=== PATIENT | male | born 1965 | race Caucasian/White ===

== ENCOUNTER 2017-02-26 00:24 | Inpatient (IN) | payer MEDICAID ==
[~2017-02-26] VITALS: Ht 190.5 cm; Wt 95.3 kg
[2017-02-26] VITALS (8 sets, daily range): BP systolic 119–153; BP diastolic 48–123
[2017-02-26] MEDS ORDERED: VENTOLIN HFA18 GM INH (00:39)
[2017-02-26] MEDS ORDERED: SPIRIVA18 MCG INH (00:39)
[2017-02-26] MEDS ORDERED: ATROVENT HFA12.9 GM IH (00:39)
[2017-02-26] MEDS ORDERED: ADVAIR 100-501 EACH INH (00:39)
[2017-02-26] MEDS ORDERED: Solu-MEDROL 125mg Inj IVP ONE (00:45)
[2017-02-26] MEDS ORDERED: Ipratropium 0.02% Inh Soln 2.5ml UD HHN ONE (00:45)
[2017-02-26] MEDS: Albuterol ud Inhalation HHN SCH ×2 (00:47→00:48)
--- NOTE | 2017-02-26 01:06 | Emergency Room Report ---
History of Present Illness General Chief Complaint: Dyspnea/Respdistress Source: Patient Present Illness HPI Patient with 2 days of dyspnea = chronic and worsening. States = severe now. No fevers or productive phlegm. This is worst attack. Never intubated. Not on prednisone. Anxious. No chest pain per se. Alleges has had heart failure unsure if this is related. Using rescue inhaler without help. No nebulizer at home. No NVD. No rashes. Stopped smoking 3 weeks ago. No dysuria. Implanted defib. Allergies: Coded Allergies: ASPIRIN (Verified Allergy, Unknown, 02/26/17) CORTISONE (Verified Allergy, Unknown, 02/26/17) Patient History Past Medical History: see triage record Social History: Reports: smoking - prior Social History Narrative with niece Reviewed Nursing Documentation: PMH: Agreed, PSxH: Agreed Nursing Documentation-PMH Past Medical History: No History, Except For Hx Cardiac Problems: Yes - Pacemaker, chf, Hx Asthma: Yes Hx COPD: Yes Review of Systems All Other Systems: negative except mentioned in HPI Physical Exam Vital Signs Date Time Temp Pulse Resp B/P Pulse Ox O2 Delivery O2 Flow Rate FiO2 02/26/17 00:30 97.3 102 24 151/79 93 Room Air 02/26/17 00:45 2.0 Sp02 EP Interpretation: reviewed, abnormal - low as interpreted by me General Appearance: alert, GCS 15, severe distress Head: normocephalic Eyes: bilateral eye PERRL, bilateral eye normal inspection ENT: moist mucus membranes Neck: supple Respiratory: respiratory distress, wheezing, expiration, inspiration, other - pacer Cardiovascular #1: no edema, tachycardia Cardiovascular #2: 2+ radial (R) Gastrointestinal: normal inspection, normal bowel sounds, non tender, no mass, non-distended, abnormal bowel sounds - decreased Musculoskeletal: back normal, gait/station normal, normal range of motion, no calf tenderness Neurologic: alert, oriented x3, grossly normal Psychiatric: anxious Skin: normal inspection, diaphoresis - slight Procedures Critical Care Time Critical Care Time Total Critical Care Time: 30 min bedside evaluation and treatment excludes procedures (EKG). Reason for critical care: respiratory distress with repeated evaluations Possible complications: hypotension, hypertension, ND, shock, arrhythmias, metabolic acidosis, end organ damage, respiratory failure. Interventions: multiple breathing treatments, magnesium, repeated evaluations ( consideration for BIPAP), treatment with morphine and ativan Course: Patient with extremis and wheezing. Aggressive breathing tx and steroids (evaluation of reported "allergy" to cortisone). Neice states " getting worse" with tx. As reported "CHF" eval CXR before fluids ordered (no evidence of CHF). Consideration of epi (held). Ativan and morphine. Improved , but still with wheezing - significant. Repeat tx and IV magnesium. Consultations: nursing staff, EMS, family, RT Performed by: Dr. Caballero Tolerated well condition = serious Medical Decision Making Diagnostic Impression: Primary Impression: Status asthmaticus with COPD (chronic obstructive pulmonary disease) Additional Impression: Renal insufficiency ER Course Patient with severe dyspnea and wheezes. Ddx: asthma, copd, chf, AMI, PNA amongst others. Immediate tx with albuterol. Consideration for intubation or BiPAP as severe distress. Also consider epi. Will observe closely (bedside). Can't hydrate until eval CXR. Solumedrol will be given. Patient states not feeling better - actually worse. Slight better air movement. Sat 100% Tx with morpine and ativan. CXR - no CHF or infiltrates. Improving with meds. BNP normal. Nl WBC. Some renal insufficiency. No indications for antibiotics. Improved - still with exp wheezing. Sats 97% 2:40. Admit telemetry Dr. Sanchez. Improved but still insp and exp wheezes at 4:20. Will repeat albuterol and give magnesium. Laboratory Tests Test 02/26/17 00:25 02/26/17 01:30 02/26/17 03:35 Prothrombin Time 9.8 SEC (9.30-11.50) Prothrombin Time INR 1.0 (0.9-1.1) PTT 25 SEC (23-33) Sodium Level 140 mEQ/L (135-145) Potassium Level 4.3 mEQ/L (3.4-4.9) Chloride Level 96 mEQ/L (98-107) L Carbon Dioxide Level 28 mEQ/L (20-30) Anion Gap 16 (5-15) H Blood Urea Nitrogen 18 mg/dL (7-23) Creatinine 1.3 mg/dL (0.7-1.2) H Estimate Glomerular Filtration Rate 57.7 mL/min (>60) Glucose Level 98 mg/dL (74-106) Lactic Acid Level 1.80 mmol/L (0.66-2.22) Calcium Level 10.0 mg/dL (8.6-10.2) Total Bilirubin 0.2 mg/dL (0.0-1.2) Aspartate Amino Transferase (AST) 24 U/L (5-40) Alanine Aminotransferase (ALT) 29 U/L (3-41) Alkaline Phosphatase 98 U/L (40-129) Total Creatine Kinase 94 U/L (38-174) Troponin I < 0.30 ng/mL (<=0.30) Pro-B-Type Natriuretic Peptide 21 pg/mL (0-125) Total Protein 8.1 g/dL (6.6-8.7) Albumin 4.7 g/dL (3.5-5.2) Globulin 3.4 g/dL Albumin/Globulin Ratio 1.3 (1.0-2.7) White Blood Count 8.1 K/UL (4.8-10.8) Red Blood Count 6.93 M/UL (4.70-6.10) H Hemoglobin 14.3 G/DL (14.2-18.0) Hematocrit 47.4 % (42.0-52.0) Mean Corpuscular Volume 68 FL (80-99) L Mean Corpuscular Hemoglobin 20.7 PG (27.0-31.0) L Mean Corpuscular Hemoglobin Concent 30.2 G/DL (32.0-36.0) L Red Cell Distribution Width 13.6 % (11.6-14.8) Platelet Count 228 K/UL (150-450) Mean Platelet Volume 8.4 FL (6.5-10.1) Neutrophils (%) (Auto) 38.6 % (45.0-75.0) L Lymphocytes (%) (Auto) 45.5 % (20.0-45.0) H Monocytes (%) (Auto) 6.5 % (1.0-10.0) Eosinophils (%) (Auto) 8.0 % (0.0-3.0) H Basophils (%) (Auto) 1.3 % (0.0-2.0) Urine Color Pale yellow Urine Appearance Clear Urine pH 5 (4.5-8.0) Urine Specific [place] 1.025 (1.005-1.035) Urine Protein 1+ (NEGATIVE) H Urine Glucose (UA) 2+ (NEGATIVE) H Urine Ketones Negative (NEGATIVE) Urine Occult Blood Negative (NEGATIVE) Urine Nitrite Negative (NEGATIVE) Urine Bilirubin Negative (NEGATIVE) Urine Urobilinogen Normal MG/DL (0.0-1.0) Urine Leukocyte Esterase 1+ (NEGATIVE) H Urine RBC 0-2 /HPF (0 - 0) H Urine WBC 0-2 /HPF (0 - 0) Urine Squamous Epithelial Cells Few /LPF (NONE/OCC) Urine Bacteria None /HPF (NONE) EKG Diagnostic Results Rate: tachycardiac ST Segments: no acute changes Rhythm Strip Diag. Results EP Interpretation: yes Rhythm: no PVC's, no ectopy, other - sinus tachycardia Chest X-Ray Diagnostic Results EP Interpretation: Yes Findings: no consolidation, no effusion, no pneumothorax, other - COPD, no infiltrate Number of Views: 1 Last Vital Signs Date Time Temp Pulse Resp B/P Pulse Ox O2 Delivery O2 Flow Rate FiO2 02/27/17 00:00 79 02/27/17 00:00 97.9 20 122/65 95 Nasal Cannula 2.0 97 Status: improved Disposition: ADMITTED INPATIENT Condition: Serious Gus Caballero M.D. February 26, 2017 01:06
[2017-02-26 01:08] LABS: PROTHROMBIN TIME 9.8 SEC (9.30-11.50); TROPONIN I < 0.30 ng/mL (<=0.30)
[2017-02-26 01:15] LABS: ALANINE AMINOTRANSFERASE 29 U/L (3-41); ALBUMIN/GLOBULIN RATIO 1.3 (1.0-2.7); ANION GAP 16 (5-15); ASPARTATE AMINO TRANSFERASE 24 U/L (5-40); CARBON DIOXIDE 28 mEQ/L (20-30); CHLORIDE 96 mEQ/L (98-107); CREATININE 1.3 mg/dL (0.7-1.2); GLOMERULAR FILTRATION RATE 57.7 mL/min (>60); HEMOLYSIS 56; POTASSIUM 4.3 mEQ/L (3.4-4.9); SODIUM 140 mEQ/L (135-145); TOTAL PROTEIN 8.1 g/dL (6.6-8.7)
[2017-02-26] MEDS ORDERED: Morphine Sulfate 2mg/ml Inj IVP ONE (01:15)
[2017-02-26] MEDS ORDERED: LORazepam Inj 2mg/ml 1ml IV ONE (01:15)
[2017-02-26 01:52] LABS: BASOPHILS % (AUTO) 1.3 % (0.0-2.0); LYMPHOCYTES % (AUTO) 45.5 % (20.0-45.0); MEAN CORPUSCULAR HEMOGLOBIN 20.7 PG (27.0-31.0); MEAN CORPUSCULAR HGB CONC 30.2 G/DL (32.0-36.0); MEAN CORPUSCULAR VOLUME 68 FL (80-99); MEAN PLATELET VOLUME 8.4 FL (6.5-10.1); MONOCYTES % (AUTO) 6.5 % (1.0-10.0); NEUTROPHILS % (AUTO) 38.6 % (45.0-75.0); PLATELET COUNT 228 K/UL (150-450); RED BLOOD COUNT 6.93 M/UL (4.70-6.10); RED CELL DISTRIBUTION WIDTH 13.6 % (11.6-14.8); WHITE BLOOD COUNT 8.1 K/UL (4.8-10.8)
[2017-02-26] MEDS ORDERED: NS 250 ML IVPB ONE (02:00)
[2017-02-26 03:40] LABS: APPEARANCE,URINE CLEAR; KETONES,URINE NEGATIVE (NEGATIVE); LEUKOCYTE ESTERASE ,URINE 1+ (NEGATIVE); NITRITE,URINE NEGATIVE (NEGATIVE); PH,URINE 5 (4.5-8.0); PROTEIN,URINE 1+ (NEGATIVE); UROBILINOGEN,URINE NORMAL MG/DL (0.0-1.0)
[2017-02-26 04:02] LABS: RBC,URINE 0-2 /HPF (0 - 0); SQUAMOUS EPITHELIAL CELL,UR FEW /LPF (NONE/OCC); WBC,URINE 0-2 /HPF (0 - 0)
[2017-02-26] MEDS ORDERED: Albuterol ud Inhalation HHN ONE (04:30)
[2017-02-26] MEDS ORDERED: Morphine Sulfate 2mg/ml Inj IVP PRN (07:30)
[2017-02-26] MEDS ORDERED: Promethazine/Codeine 5ml UD ORAL PRN (07:30)
[2017-02-26] MEDS ORDERED: Nitroglycerin Subl 0.4mg tab (Bottle Of 25) SL PRN (07:30)
[2017-02-26] MEDS ORDERED: LORazepam Inj 2mg/ml 1ml IV PRN (07:30)
[2017-02-26] MEDS: Theophylline ER 100mg ORAL SCH ×2 (08:52→20:30)
[2017-02-26] MEDS: Heparin 5000 units/ml inj SUBQ SCH ×2 (08:53→20:31)
[2017-02-26] MEDS: Zosyn 3.375gm q8h **Extended infusion IVPB SCH ×4 (08:53→16:20)
--- NOTE | 2017-02-26 09:36 | Diagnostic Imaging Report ---
Indication: Cough Comparison: None A single view chest radiograph was obtained. Findings: Cardiomediastinal appearance is within normal limits for age. Pacemakers noted. Pulmonary vascularity is appropriate. The diaphragmatic contour is smooth and costophrenic angles are sharp. No pleural effusions are identified. The bones are unremarkable. Impression: No acute findings
--- NOTE | 2017-02-26 12:57 | History and Physical ---
History of Present Illness General Date patient seen: February 26, 2017 Reason for Hospitalization: Dyspnea/Respdistress Present Illness HPI 51 year old male with hx of COPD, pace maker, LESLEYA from home c/o SOB x1week, patient states SOB worsened x3days. He states 7/10 medial chest pain. Patient also has inspiratory and expiratory wheezing. Pt is admitted to telemetry for acute respiratory failure. Allergies: Coded Allergies: ASPIRIN (Verified Allergy, Unknown, 02/26/17) CORTISONE (Verified Allergy, Unknown, 02/26/17) Medication History Scheduled Albuterol Sulfate (Ventolin Hfa), 1 PUFF INH EVERY 6 HOURS, (Reported) Fluticasone/Salmeterol (Advair 100-50 Diskus), 1 PUFF INH EVERY 12 HOURS, ( Reported) Tiotropium [place]* (Spiriva*), 1 PUFF INH DAILY, (Reported) Miscellaneous Medications Ipratropium [place] (Atrovent Hfa), 12.9 GM IH, (Reported) Patient History Healthcare decision maker pt A&Ox4 Resuscitation status Full Code Advanced Directive on File Past Medical/Surgical History Past Medical/Surgical History: (1) COPD (chronic obstructive pulmonary disease) (2) Pacemaker Review of Systems All Other Systems: negative except mentioned in HPI Physical Exam General Appearance: WD/WN Lines, tubes and drains: peripheral, central line HEENT: normocephalic, atraumatic Neck: non-tender, normal alignment Respiratory/Chest: chest wall non-tender, lungs clear Cardiovascular/Chest: normal peripheral pulses, normal rate Abdomen: normal bowel sounds Genitourinary/Rectal: normal genital exam, normal rectal exam Last 24 Hour Vital Signs Date Time Temp Pulse Resp B/P Pulse Ox O2 Delivery O2 Flow Rate FiO2 02/26/17 12:00 97.4 106 20 124/67 95 Room Air 02/26/17 11:37 99 Nasal Cannula 2.0 28 02/26/17 11:35 Nasal Cannula 2.0 28 02/26/17 11:32 118 20 Nasal Cannula 2.0 02/26/17 08:00 97.2 103 20 126/69 Nasal Cannula 2.0 99 02/26/17 07:56 90 02/26/17 05:09 97.5 111 22 121/82 96 Nasal Cannula 2.0 02/26/17 04:55 102 18 99 Nasal Cannula 2.0 02/26/17 04:55 89 19 125/60 97 Room Air 02/26/17 04:50 97.4 89 19 125/60 97 Nasal Cannula 2.0 02/26/17 04:31 90 18 97 Nasal Cannula 2.0 02/26/17 03:50 97.4 105 20 124/48 98 Nasal Cannula 2.0 02/26/17 01:50 97.4 02/26/17 01:26 98 18 99 Nasal Cannula 2.0 02/26/17 01:26 113 18 100 Nasal Cannula 2.0 02/26/17 01:05 97.3 105 24 153/123 100 Nasal Cannula 2.0 02/26/17 01:05 105 24 Nasal Cannula 2.0 02/26/17 00:46 103 18 97 Nasal Cannula 2.0 02/26/17 00:45 103 18 Nasal Cannula 2.0 02/26/17 00:30 97.3 102 24 151/79 93 Room Air Intake and Output 02/25/17 02/26/17 19:00 07:00 Intake Total 1000 ml Balance 1000 ml Intake Oral 0 ml IV Total 1000 ml Laboratory Tests Test 02/26/17 00:25 02/26/17 01:30 02/26/17 03:35 Prothrombin Time 9.8 SEC (9.30-11.50) Prothromb Time International Ratio 1.0 (0.9-1.1) Activated Partial Thromboplast Time 25 SEC (23-33) Sodium Level 140 mEQ/L (135-145) Potassium Level 4.3 mEQ/L (3.4-4.9) Chloride Level 96 mEQ/L (98-107) L Carbon Dioxide Level 28 mEQ/L (20-30) Anion Gap 16 (5-15) H Blood Urea Nitrogen 18 mg/dL (7-23) Creatinine 1.3 mg/dL (0.7-1.2) H Estimat Glomerular Filtration Rate 57.7 mL/min (>60) Glucose Level 98 mg/dL (74-106) Lactic Acid Level 1.80 mmol/L (0.66-2.22) Calcium Level 10.0 mg/dL (8.6-10.2) Total Bilirubin 0.2 mg/dL (0.0-1.2) Aspartate Amino Transf (AST/SGOT) 24 U/L (5-40) Alanine Aminotransferase (ALT/SGPT) 29 U/L (3-41) Alkaline Phosphatase 98 U/L (40-129) Total Creatine Kinase 94 U/L (38-174) Troponin I < 0.30 ng/mL (<=0.30) Pro-B-Type Natriuretic Peptide 21 pg/mL (0-125) Total Protein 8.1 g/dL (6.6-8.7) Albumin 4.7 g/dL (3.5-5.2) Globulin 3.4 g/dL Albumin/Globulin Ratio 1.3 (1.0-2.7) White Blood Count 8.1 K/UL (4.8-10.8) Red Blood Count 6.93 M/UL (4.70-6.10) H Hemoglobin 14.3 G/DL (14.2-18.0) Hematocrit 47.4 % (42.0-52.0) Mean Corpuscular Volume 68 FL (80-99) L Mean Corpuscular Hemoglobin 20.7 PG (27.0-31.0) L Mean Corpuscular Hemoglobin Concent 30.2 G/DL (32.0-36.0) L Red Cell Distribution Width 13.6 % (11.6-14.8) Platelet Count 228 K/UL (150-450) Mean Platelet Volume 8.4 FL (6.5-10.1) Neutrophils (%) (Auto) 38.6 % (45.0-75.0) L Lymphocytes (%) (Auto) 45.5 % (20.0-45.0) H Monocytes (%) (Auto) 6.5 % (1.0-10.0) Eosinophils (%) (Auto) 8.0 % (0.0-3.0) H Basophils (%) (Auto) 1.3 % (0.0-2.0) Urine Color Pale yellow Urine Appearance Clear Urine pH 5 (4.5-8.0) Urine Specific [place] 1.025 (1.005-1.035) Urine Protein 1+ (NEGATIVE) H Urine Glucose (UA) 2+ (NEGATIVE) H Urine Ketones Negative (NEGATIVE) Urine Occult Blood Negative (NEGATIVE) Urine Nitrite Negative (NEGATIVE) Urine Bilirubin Negative (NEGATIVE) Urine Urobilinogen Normal MG/DL (0.0-1.0) Urine Leukocyte Esterase 1+ (NEGATIVE) H Urine RBC 0-2 /HPF (0 - 0) H Urine WBC 0-2 /HPF (0 - 0) Urine Squamous Epithelial Cells Few /LPF (NONE/OCC) Urine Bacteria None /HPF (NONE) Height (Feet): 6 Height (Inches): 3.00 Weight (Pounds): 210 Medications Current Medications Medications (Trade) Dose Ordered Sig/Leno Route PRN Reason Start Time Stop Time Status Last Admin Dose Admin Albuterol/ Ipratropium (DuoNeb 0.5-3(2.5)mg/3ml) 3 ml Q4H PRN HHN dyspnea 02/26/17 07:30 03/03/17 07:29 Dextrose STAT PRN IV Hypoglycemia 02/26/17 07:30 03/28/17 07:29 Heparin Sodium (Porcine) (Heparin 5000 units/ml) 5,000 units EVERY 12 HOURS SUBQ 02/26/17 09:00 03/28/17 08:59 Lorazepam (Ativan 2mg/ml 1ml) 0.5 mg Q4H PRN IV For Anxiety 02/26/17 07:30 03/05/17 07:29 Morphine Sulfate (Morphine Sulfate) 2 mg Q4H PRN IVP severe pain 7-10 02/26/17 07:30 03/05/17 07:29 Nitroglycerin (Ntg) 0.4 mg Q5M X 3 DOSES PRN SL Prn Chest Pain 02/26/17 07:30 03/28/17 07:29 Ondansetron HCl (Zofran) 4 mg Q6H PRN IVP Nausea & Vomiting 02/26/17 07:30 03/28/17 07:29 Piperacillin Sod/ Tazobactam Sod/ Dextrose (Zosyn/D5W) 110 ml @ 27.5 mls/hr Q8HR@0100,0900,1700 IVPB 02/26/17 09:00 03/05/17 08:59 02/26/17 08:53 Promethazine HCl/ Codeine (Phenergan with Codeine) 5 ml Q6H PRN ORAL cough 02/26/17 07:30 03/28/17 07:29 Temazepam (Restoril) 15 mg HSPRN PRN ORAL Insomnia 02/26/17 07:30 03/05/17 07:29 Theophylline (Fausto-Dur) 100 mg EVERY 12 HOURS ORAL 02/26/17 09:00 03/28/17 08:59 02/26/17 08:52 Assessment/Plan Problem List: (1) Status asthmaticus with COPD (chronic obstructive pulmonary disease) ICD Codes: J44.9 - Chronic obstructive pulmonary disease, unspecified; J45.902 - Unspecified asthma with status asthmaticus SNOMED: 23712235, 282683816 (2) COPD (chronic obstructive pulmonary disease) ICD Codes: J44.9 - Chronic obstructive pulmonary disease, unspecified SNOMED: 77957255 (3) Pacemaker ICD Codes: Z95.0 - Presence of cardiac pacemaker SNOMED: 556859169, 430010940 Assessment/Plan IV steroids IV antibiotics respiratory treatment check sputum HAYDEN FREGOSO February 26, 2017 12:57
[2017-02-26] MEDS ORDERED: Piperacillin/Tazobactam 2.25 GM in D5W 55 ML IV SCH (14:00)
--- NOTE | 2017-02-26 15:46 | Cardiology Report ---
APPROVED REPORT EKG Measurement Heart [id number] Sinus tachycardia Otherwise normal ECG
--- NOTE | 2017-02-26 17:08 | Cardiology Progress Note ---
Assessment/Plan Assessment/Plan [id number] Objective Last 24 Hour Vital Signs Date Time Temp Pulse Resp B/P Pulse Ox O2 Delivery O2 Flow Rate FiO2 02/26/17 16:00 97.4 94 19 126/61 Nasal Cannula 2.0 97 02/26/17 12:00 97.4 106 20 124/67 95 Room Air 02/26/17 11:39 109 02/26/17 11:37 99 Nasal Cannula 2.0 28 02/26/17 11:35 Nasal Cannula 2.0 28 02/26/17 11:32 118 20 Nasal Cannula 2.0 02/26/17 08:00 97.2 103 20 126/69 Nasal Cannula 2.0 99 02/26/17 07:56 90 02/26/17 05:09 97.5 111 22 121/82 96 Nasal Cannula 2.0 02/26/17 04:55 102 18 99 Nasal Cannula 2.0 02/26/17 04:55 89 19 125/60 97 Room Air 02/26/17 04:50 97.4 89 19 125/60 97 Nasal Cannula 2.0 02/26/17 04:31 90 18 97 Nasal Cannula 2.0 02/26/17 03:50 97.4 105 20 124/48 98 Nasal Cannula 2.0 02/26/17 01:50 97.4 02/26/17 01:26 98 18 99 Nasal Cannula 2.0 02/26/17 01:26 113 18 100 Nasal Cannula 2.0 02/26/17 01:05 97.3 105 24 153/123 100 Nasal Cannula 2.0 02/26/17 01:05 105 24 Nasal Cannula 2.0 02/26/17 00:46 103 18 97 Nasal Cannula 2.0 02/26/17 00:45 103 18 Nasal Cannula 2.0 02/26/17 00:30 97.3 102 24 151/79 93 Room Air Intake and Output 02/25/17 02/26/17 19:00 07:00 Intake Total 1000 ml Balance 1000 ml Intake Oral 0 ml IV Total 1000 ml Laboratory Tests Test 02/26/17 00:25 02/26/17 01:30 02/26/17 03:35 Prothrombin Time 9.8 SEC (9.30-11.50) Prothromb Time International Ratio 1.0 (0.9-1.1) Activated Partial Thromboplast Time 25 SEC (23-33) Sodium Level 140 mEQ/L (135-145) Potassium Level 4.3 mEQ/L (3.4-4.9) Chloride Level 96 mEQ/L (98-107) L Carbon Dioxide Level 28 mEQ/L (20-30) Anion Gap 16 (5-15) H Blood Urea Nitrogen 18 mg/dL (7-23) Creatinine 1.3 mg/dL (0.7-1.2) H Estimat Glomerular Filtration Rate 57.7 mL/min (>60) Glucose Level 98 mg/dL (74-106) Lactic Acid Level 1.80 mmol/L (0.66-2.22) Calcium Level 10.0 mg/dL (8.6-10.2) Total Bilirubin 0.2 mg/dL (0.0-1.2) Aspartate Amino Transf (AST/SGOT) 24 U/L (5-40) Alanine Aminotransferase (ALT/SGPT) 29 U/L (3-41) Alkaline Phosphatase 98 U/L (40-129) Total Creatine Kinase 94 U/L (38-174) Troponin I < 0.30 ng/mL (<=0.30) Pro-B-Type Natriuretic Peptide 21 pg/mL (0-125) Total Protein 8.1 g/dL (6.6-8.7) Albumin 4.7 g/dL (3.5-5.2) Globulin 3.4 g/dL Albumin/Globulin Ratio 1.3 (1.0-2.7) White Blood Count 8.1 K/UL (4.8-10.8) Red Blood Count 6.93 M/UL (4.70-6.10) H Hemoglobin 14.3 G/DL (14.2-18.0) Hematocrit 47.4 % (42.0-52.0) Mean Corpuscular Volume 68 FL (80-99) L Mean Corpuscular Hemoglobin 20.7 PG (27.0-31.0) L Mean Corpuscular Hemoglobin Concent 30.2 G/DL (32.0-36.0) L Red Cell Distribution Width 13.6 % (11.6-14.8) Platelet Count 228 K/UL (150-450) Mean Platelet Volume 8.4 FL (6.5-10.1) Neutrophils (%) (Auto) 38.6 % (45.0-75.0) L Lymphocytes (%) (Auto) 45.5 % (20.0-45.0) H Monocytes (%) (Auto) 6.5 % (1.0-10.0) Eosinophils (%) (Auto) 8.0 % (0.0-3.0) H Basophils (%) (Auto) 1.3 % (0.0-2.0) Urine Color Pale yellow Urine Appearance Clear Urine pH 5 (4.5-8.0) Urine Specific [place] 1.025 (1.005-1.035) Urine Protein 1+ (NEGATIVE) H Urine Glucose (UA) 2+ (NEGATIVE) H Urine Ketones Negative (NEGATIVE) Urine Occult Blood Negative (NEGATIVE) Urine Nitrite Negative (NEGATIVE) Urine Bilirubin Negative (NEGATIVE) Urine Urobilinogen Normal MG/DL (0.0-1.0) Urine Leukocyte Esterase 1+ (NEGATIVE) H Urine RBC 0-2 /HPF (0 - 0) H Urine WBC 0-2 /HPF (0 - 0) Urine Squamous Epithelial Cells Few /LPF (NONE/OCC) Urine Bacteria None /HPF (NONE) MAHOGANY TOBIAS February 26, 2017 17:08
[2017-02-27] VITALS: BP 122/65
[2017-02-27] MEDS: Zosyn 3.375gm q8h **Extended infusion IVPB SCH ×6 (01:12→18:16)
--- NOTE | 2017-02-27 01:39 | Consultation ---
DATE OF CONSULTATION: 02/26/2017 CARDIOLOGY CONSULTATION: REFERRING PHYSICIAN: Nimesh Sanchez M.D. REASON FOR EVALUATION AND MANAGEMENT: Pacemaker. HISTORY OF PRESENT ILLNESS: This is a 51-year-old gentleman with history of asthma with severe exacerbation on yearly basis that comprises of shortness of breath that is not responding to breathing treatments and nebulizer he has at home with pain and difficulty breathing, pain in the chest that lasted for about a week. He has had the recurrence of these issues again for the past week. No relief of his shortness of breath. No other discomfort and finally presented to the emergency room at [facility]. He was admitted to the hospital last night. It appears at the present time that . He has two pillow orthopnea. He has dyspnea on exertion and dyspnea at rest, PND, palpitations, and dizziness. PAST MEDICAL HISTORY: Positive history of asthma. No diabetes or high blood pressure. No high cholesterol. No heart attack. He states he had an evaluation at [facility] some time ago including an angiogram apparently told him that his blood sugars were okay, but he knew the pacemaker because of bradycardia. He had a pacemaker implanted at that time. He has not had the pacemaker interrogated for some time now. No other medical problems. ALLERGIES: He is allergic to aspirin and cortisone. SOCIAL HISTORY: He does not smoke at the present time. REVIEW OF SYSTEMS: Gastrointestinal: Some nausea. No vomiting. No bloody or black stool. Genitourinary: Negative. Pulmonary: Positive for coughing . Constitutional: Negative. Neurologic: Negative. PHYSICAL EXAMINATION: GENERAL: Shows to be middle-aged gentleman, no apparent respiratory distress. NECK: Supple. No jugular venous distention. LUNGS: Decreased breath sounds or wheezes. Inspiratory and expiratory was noted. CARDIAC: Heart sounds distant regular. No heaves or thrills. ABDOMEN: Soft and nontender. Positive bowel sounds. EXTREMITIES: There is no clubbing, cyanosis, nor is there any edema. NEUROLOGIC: He is awake, alert, and responsive, in no apparent distress. LABORATORY VALUES: White count of 8.1, hemoglobin 14.3, and platelet count 228,000. Sodium is 140, potassium 4.3, chloride 96, bicarbonate 28, BUN of 18, creatinine 1.2, and glucose of 98. Lactic acid 1.8. Troponin less than 0.03. ProBNP is only 21. Albumin 4.7. Urinalysis is 0 to 2 RBCs and 0 to 2 to 2 WBCs. INR is 1.0. He had a chest x-ray performed in the emergency room shows no acute findings. EKG showing normal sinus rhythm, normal QRS axis, no ST-T abnormality or significant degree, no atrial pacing. ASSESSMENT AND PLAN: 1. Chronic obstructive pulmonary disease with extubation. 2. Permanent pacemaker implantation for bradycardia. 3. Shortness of breath and chest pains with apparently negative cardiac catheterization per the patient a number of years ago. The patient is admitted to the hospital. Really, the issue here is the pacemaker interrogation he has had over the past year. We will try to see if company can interrogate the device while he is here. Breathing treatments . We will repeat cardiac enzymes as part of routine, although his pain is very atypical and prolonged and has been present over the one week constantly and normal cardiac enzymes and normal EKG makes it unlikely that it is cardiac origin in the first place and secondly he has had primary cardiac catheterization before that showed no coronary disease. The patient will be seen regarding pacemaker. Omid Archer M.D. DR: Maria L JOB#: [id number] CC:
[2017-02-27 04:00] VITALS: BP 102/61
[2017-02-27 08:04] VITALS: BP 124/81
[2017-02-27] MEDS: DuoNeb 0.5-3(2.5)mg/3ml neb HHN PRN (08:48)
[2017-02-27] MEDS: Theophylline ER 100mg ORAL SCH ×2 (09:19→20:25)
[2017-02-27] MEDS: Heparin 5000 units/ml inj SUBQ SCH ×2 (09:22→20:26)
[2017-02-27 11:41] VITALS: BP 135/74
--- NOTE | 2017-02-27 13:33 | Pulmonology Progress Note ---
Assessment/Plan Problems: (1) Status asthmaticus with COPD (chronic obstructive pulmonary disease) (2) COPD (chronic obstructive pulmonary disease) (3) Pacemaker Assessment/Plan improving respiratory treatment check sputum dc in am Subjective ROS Limited/Unobtainable: No Constitutional: Reports: no symptoms HEENT: Repors: no symptoms Respiratory: Reports: no symptoms Allergies: Coded Allergies: ASPIRIN (Verified Allergy, Unknown, 02/26/17) CORTISONE (Verified Allergy, Unknown, 02/26/17) Objective Last 24 Hour Vital Signs Date Time Temp Pulse Resp B/P Pulse Ox O2 Delivery O2 Flow Rate FiO2 02/27/17 11:41 97.5 69 20 135/74 99 Nasal Cannula 2.0 02/27/17 08:48 92 18 100 Nasal Cannula 2.0 02/27/17 08:48 89 18 Nasal Cannula 2.0 02/27/17 08:48 Nasal Cannula 2.0 28 02/27/17 08:38 91 18 97 Nasal Cannula 2.0 02/27/17 08:04 97.0 65 22 124/81 98 Nasal Cannula 2.0 02/27/17 08:00 68 02/27/17 04:00 64 02/27/17 04:00 97.2 72 20 102/61 95 Nasal Cannula 2.0 97 02/27/17 00:00 79 02/27/17 00:00 97.9 91 20 122/65 95 Nasal Cannula 2.0 97 02/26/17 20:00 94 02/26/17 20:00 97.9 93 20 119/63 95 Nasal Cannula 2.0 97 02/26/17 19:00 92 20 Nasal Cannula 2.0 02/26/17 19:00 Nasal Cannula 2.0 28 02/26/17 16:09 97 02/26/17 16:00 97.4 94 19 126/61 Nasal Cannula 2.0 97 Intake and Output 02/26/17 02/27/17 19:00 07:00 Intake Total 165.0 ml 265.0 ml Output Total 900 ml Balance 165.0 ml -635.0 ml Intake Oral 100 ml IV Total 165.0 ml 165.0 ml Output Urine Total 900 ml General Appearance: WD/WN HEENT: normocephalic, atraumatic Respiratory/Chest: chest wall non-tender, lungs clear Cardiovascular: normal peripheral pulses Abdomen: normal bowel sounds, soft, non tender Neurologic/Psychiatric: director of mobile marketing II-XII grossly normal, abnormal gait Lymphatic: no neck adenopathy Microbiology Date/Time Source Procedure Growth Status 02/26/17 00:25 Blood Blood Culture - Preliminary NO GROWTH AFTER 24 HOURS Resulted 02/26/17 00:25 Blood Blood Culture - Preliminary NO GROWTH AFTER 24 HOURS Resulted 02/26/17 16:00 Sputum Gram Stain - Final Resulted 02/26/17 16:00 Sputum Sputum Culture Pending Resulted Current Medications Medications (Trade) Dose Ordered Sig/Leno Route PRN Reason Start Time Stop Time Status Last Admin Dose Admin Albuterol/ Ipratropium (DuoNeb 0.5-3(2.5)mg/3ml) 3 ml Q4H PRN HHN dyspnea 02/26/17 07:30 03/03/17 07:29 02/27/17 08:48 Dextrose STAT PRN IV Hypoglycemia 02/26/17 07:30 03/28/17 07:29 Heparin Sodium (Porcine) (Heparin 5000 units/ml) 5,000 units EVERY 12 HOURS SUBQ 02/26/17 09:00 03/28/17 08:59 02/27/17 09:22 Lorazepam (Ativan 2mg/ml 1ml) 0.5 mg Q4H PRN IV For Anxiety 02/26/17 07:30 03/05/17 07:29 Morphine Sulfate (Morphine Sulfate) 2 mg Q4H PRN IVP severe pain 7-10 02/26/17 07:30 03/05/17 07:29 Nitroglycerin (Ntg) 0.4 mg Q5M X 3 DOSES PRN SL Prn Chest Pain 02/26/17 07:30 03/28/17 07:29 Ondansetron HCl (Zofran) 4 mg Q6H PRN IVP Nausea & Vomiting 02/26/17 07:30 03/28/17 07:29 Piperacillin Sod/ Tazobactam Sod/ Dextrose (Zosyn/D5W) 110 ml @ 27.5 mls/hr Q8HR@0100,0900,1700 IVPB 02/26/17 09:00 03/05/17 08:59 02/27/17 09:19 Promethazine HCl/ Codeine (Phenergan with Codeine) 5 ml Q6H PRN ORAL cough 02/26/17 07:30 03/28/17 07:29 Temazepam (Restoril) 15 mg HSPRN PRN ORAL Insomnia 02/26/17 07:30 03/05/17 07:29 02/27/17 01:20 Theophylline (Fausto-Dur) 100 mg EVERY 12 HOURS ORAL 02/26/17 09:00 03/28/17 08:59 02/27/17 09:19 HAYDEN FREGOSO February 27, 2017 13:33
[2017-02-27] MEDS ORDERED: Tubing IV Secondary IV ONE (15:18)
[2017-02-27] MEDS ORDERED: NS 275ml ONE (15:18)
[2017-02-27 15:36] VITALS: BP 133/75
[2017-02-27 20:00] VITALS: BP 128/75
--- NOTE | 2017-02-27 21:14 | Cardiology Progress Note ---
Assessment/Plan Assessment/Plan 1. Chronic obstructive pulmonary disease with extubation. 2. Permanent pacemaker implantation for bradycardia. 3. Shortness of breath and chest pains with apparently negative cardiac catheterization per the patient a number of years ago. tele sinus nto pacer dependent still wheeze but fees better interrogation of pacer when possible ok to dc tele Subjective Cardiovascular: Denies: chest pain, lightheadedness Respiratory: Reports: shortness of breath, wheezing Gastrointestinal/Abdominal: Denies: abdominal pain Genitourinary: Denies: burning Objective Last 24 Hour Vital Signs Date Time Temp Pulse Resp B/P Pulse Ox O2 Delivery O2 Flow Rate FiO2 02/27/17 20:01 67 02/27/17 20:00 64 20 128/75 97 Room Air 02/27/17 19:30 Room Air 02/27/17 19:30 88 18 Room Air 02/27/17 19:30 97 Room Air 02/27/17 16:00 67 02/27/17 15:36 97.9 72 20 133/75 97 Room Air 02/27/17 12:00 63 02/27/17 11:41 97.5 69 20 135/74 99 Nasal Cannula 2.0 02/27/17 08:48 92 18 100 Nasal Cannula 2.0 02/27/17 08:48 89 18 Nasal Cannula 2.0 02/27/17 08:48 Nasal Cannula 2.0 28 02/27/17 08:38 91 18 97 Nasal Cannula 2.0 02/27/17 08:04 97.0 65 22 124/81 98 Nasal Cannula 2.0 02/27/17 08:00 68 02/27/17 04:00 64 02/27/17 04:00 97.2 72 20 102/61 95 Nasal Cannula 2.0 97 02/27/17 00:00 79 02/27/17 00:00 97.9 91 20 122/65 95 Nasal Cannula 2.0 97 General Appearance: no apparent distress Neck: supple Cardiovascular: normal rate, regular rhythm Respiratory/Chest: expiratory wheezing Abdomen: normal bowel sounds, non tender, soft Extremities: no swelling Intake and Output 02/26/17 02/27/17 19:00 07:00 Intake Total 165.0 ml 265.0 ml Output Total 900 ml Balance 165.0 ml -635.0 ml Intake Oral 100 ml IV Total 165.0 ml 165.0 ml Output Urine Total 900 ml Microbiology Date/Time Source Procedure Growth Status 02/26/17 00:25 Blood Blood Culture - Preliminary NO GROWTH AFTER 24 HOURS Resulted 02/26/17 00:25 Blood Blood Culture - Preliminary NO GROWTH AFTER 24 HOURS Resulted 02/26/17 16:00 Sputum Gram Stain - Final Resulted 02/26/17 16:00 Sputum Sputum Culture Pending Resulted MAHOGANY TOBIAS February 27, 2017 21:14
[2017-02-28] VITALS: BP 143/88
[2017-02-28] MEDS: Zosyn 3.375gm q8h **Extended infusion IVPB SCH ×4 (00:38→09:12)
[2017-02-28 04:00] VITALS: BP 125/70
[2017-02-28] MEDS: DuoNeb 0.5-3(2.5)mg/3ml neb HHN PRN (07:40)
[2017-02-28 08:00] VITALS: BP 138/70
[2017-02-28] MEDS: Theophylline ER 100mg ORAL SCH (09:12)
[2017-02-28] MEDS: Heparin 5000 units/ml inj SUBQ SCH (09:13)
[2017-02-28 12:00] VITALS: BP 128/74
--- NOTE | 2017-02-28 12:57 | Pulmonology Progress Note ---
Assessment/Plan Problems: (1) Status asthmaticus with COPD (chronic obstructive pulmonary disease) (2) COPD (chronic obstructive pulmonary disease) (3) Pacemaker Assessment/Plan improving asymptomatic respiratory treatment check sputum dc today Subjective Constitutional: Reports: no symptoms HEENT: Repors: no symptoms Respiratory: Reports: no symptoms Allergies: Coded Allergies: ASPIRIN (Verified Allergy, Unknown, 02/26/17) CORTISONE (Verified Allergy, Unknown, 02/26/17) Objective Last 24 Hour Vital Signs Date Time Temp Pulse Resp B/P Pulse Ox O2 Delivery O2 Flow Rate FiO2 02/28/17 12:00 67 02/28/17 08:00 61 02/28/17 08:00 96.8 63 18 138/70 97 Room Air 02/28/17 07:50 72 18 99 Nasal Cannula 2.0 28 02/28/17 07:40 72 18 97 Nasal Cannula 2.0 28 02/28/17 07:25 97 Nasal Cannula 2.0 28 02/28/17 07:25 67 18 Nasal Cannula 2.0 28 02/28/17 07:25 Nasal Cannula 2.0 28 02/28/17 04:00 97.4 64 21 125/70 96 Room Air 02/28/17 04:00 68 02/28/17 00:00 68 02/28/17 00:00 97.2 83 20 143/88 96 Room Air 02/27/17 20:01 67 02/27/17 20:00 64 20 128/75 97 Room Air 02/27/17 19:30 Room Air 02/27/17 19:30 88 18 Room Air 02/27/17 19:30 97 Room Air 02/27/17 16:00 67 02/27/17 15:36 97.9 72 20 133/75 97 Room Air Intake and Output 02/27/17 02/28/17 19:00 07:00 Intake Total 470.0 ml 320.0 ml Output Total 1400 ml 600 ml Balance -930.0 ml -280.0 ml Intake Oral 360 ml 100 ml IV Total 110.0 ml 220.0 ml Output Urine Total 1400 ml 600 ml General Appearance: cachetic HEENT: normocephalic, atraumatic Respiratory/Chest: chest wall non-tender, normal breath sounds Cardiovascular: normal peripheral pulses, normal rate Abdomen: normal bowel sounds, soft, non tender Microbiology Date/Time Source Procedure Growth Status 02/26/17 00:25 Blood Blood Culture - Preliminary NO GROWTH AFTER 48 HOURS Resulted 02/26/17 00:25 Blood Blood Culture - Preliminary NO GROWTH AFTER 48 HOURS Resulted 02/26/17 16:00 Sputum Gram Stain - Final Complete 02/26/17 16:00 Sputum Sputum Culture - Final NORMAL UPPER RESPIRATORY ARMIN PRESENT Complete Current Medications Medications (Trade) Dose Ordered Sig/Leno Route PRN Reason Start Time Stop Time Status Last Admin Dose Admin Albuterol/ Ipratropium (DuoNeb 0.5-3(2.5)mg/3ml) 3 ml Q4H PRN HHN dyspnea 02/26/17 07:30 03/03/17 07:29 02/28/17 07:40 Dextrose STAT PRN IV Hypoglycemia 02/26/17 07:30 03/28/17 07:29 Heparin Sodium (Porcine) (Heparin 5000 units/ml) 5,000 units EVERY 12 HOURS SUBQ 02/26/17 09:00 03/28/17 08:59 02/28/17 09:13 Lorazepam (Ativan 2mg/ml 1ml) 0.5 mg Q4H PRN IV For Anxiety 02/26/17 07:30 03/05/17 07:29 Morphine Sulfate (Morphine Sulfate) 2 mg Q4H PRN IVP severe pain 7-10 02/26/17 07:30 03/05/17 07:29 Nitroglycerin (Ntg) 0.4 mg Q5M X 3 DOSES PRN SL Prn Chest Pain 02/26/17 07:30 03/28/17 07:29 Ondansetron HCl (Zofran) 4 mg Q6H PRN IVP Nausea & Vomiting 02/26/17 07:30 03/28/17 07:29 Piperacillin Sod/ Tazobactam Sod/ Dextrose (Zosyn/D5W) 110 ml @ 27.5 mls/hr Q8HR@0100,0900,1700 IVPB 02/26/17 09:00 03/05/17 08:59 02/28/17 09:12 Promethazine HCl/ Codeine (Phenergan with Codeine) 5 ml Q6H PRN ORAL cough 02/26/17 07:30 03/28/17 07:29 Temazepam (Restoril) 15 mg HSPRN PRN ORAL Insomnia 02/26/17 07:30 03/05/17 07:29 02/27/17 20:26 Theophylline (Fausto-Dur) 100 mg EVERY 12 HOURS ORAL 02/26/17 09:00 03/28/17 08:59 02/28/17 09:12 HAYDEN FREGOSO February 28, 2017 12:57
--- NOTE | 2017-03-02 10:52 | Discharge Summary ---
Discharge Summary Hospital Course Date of Admission February 26, 2017 at 02:38 Date of Discharge February 28, 2017 at 14:22 Admitting Diagnosis COPD exacerbation HPI Zenobia Pollack is a 51 year old male who was admitted on February 26, 2017 at 02:38 for Chronic Obstructive Pulmonary Disease Exacerbation Hospital Course [id number] Discharge Discharge Disposition Patient was discharged to Home (01) Discharge Diagnoses: Kinga Diamond NP March 02, 2017 10:52
--- NOTE | 2017-03-03 03:19 | Discharge Summary 2 SIG ---
DATE OF ADMISSION: 02/26/2017 DATE OF DISCHARGE: 02/28/2017 RAPID EXTRACTOR OPERATOR: Omid Archer M.D. BRIEF HOSPITAL COURSE: The patient is a 51-year-old male with history of COPD and pacemaker, who was brought in by ambulance from home complaining of shortness of breath for a week that has gotten worse over the past three days. He also came in with complaints of chest pain, which was 7/10 located medially on the chest and had inspiratory and expiratory wheezing. He had been using his rescue inhaler at home, which did not help. On arrival to ED, chest x-ray done showed no CHF or no infiltrates. BNP was normal. However, he was still wheezing. He was then admitted for further evaluation and was given respiratory treatments with bronchodilators and was started on IV steroids. He was seen by Dr. Archer. EKG showed normal sinus rhythm with normal QRS axis and no ST to T-wave abnormality of any significant degree. Cardiac enzymes were monitored. On telemetry, the patient was in sinus rhythm and is not pacer dependent. He was advised that he need to have interrogation of pacemaker done. Sputum culture was negative. The patient was discharged home. Advised to follow up with Cardiology and PMD as an outpatient. FINAL DIAGNOSES: 1. Acute chronic obstructive pulmonary disease exacerbation. 2. Status asthmaticus with chronic obstructive pulmonary disease. 3. Status post pacemaker. Nimesh Sanchez M.D. I have been assigned to dictate discharge summary on this account and I was not involved in the patient's management. Kinga Diamond N.P. DR: LYDIA JOB#: [id number] CC:
== END 2017-02-28 14:22 | disposition home or self-care (01) | DRG 140 ==
LOC: EMR 01:00 → 2E 02:38 → EDBEDREQ 03:48
DX: J44.1 Chronic obstructive pulmonary disease with (acute) exacerbation (principal); J45.902 Unspecified asthma with status asthmaticus; Z95.0 Presence of cardiac pacemaker; Z88.6 Allergy status to analgesic agent
CPT/HCPCS: 36415; 71010; 80053; 81003; 82550; 83605; 83880; 84484; 85025; 85610; 85730; 87040; 87070; 87205; 93005; 94640; 94664; 94760; J7620

== ENCOUNTER 2017-04-30 13:17 | Emergency (ER) | payer MEDICAID ==
[~2017-04-30] VITALS: Ht 190.5 cm; Wt 94.8 kg
[~2017-04-30 13:17] MED LIST: ADVAIR 100-501 EACH INH; ATROVENT HFA12.9 GM IH; SPIRIVA18 MCG INH; VENTOLIN HFA18 GM INH
[2017-04-30] MEDS ORDERED: SEREVENT DISKU50 MCG IH (13:39)
[2017-04-30] MEDS ORDERED: PULMICORT FLE180 MCG IH (13:39)
[2017-04-30] MEDS: Albuterol ud Inhalation HHN SCH ×3 (13:43→14:46)
--- NOTE | 2017-04-30 13:49 | Emergency Room Report ---
History of Present Illness General Chief Complaint: Chest Pain Source: Patient (Brigida Ryan) Present Illness HPI 51-year-old male presents emergency department complaining of 10 out of 10 in severity left-sided chest pain since 9 AM this morning. Patient also reports shortness of breath patient states he has a history of COPD. he also states he has a history of a pacemaker implant. pain is worsened with leaning forward. denies N/V/F/C. Denies history of hypertension. Denies Palpitations, LOC, AMS , dizziness, Changes in Vision, Sensation, paresthesias, or a sudden severe headache. (Brigida Ryan) Allergies: Coded Allergies: ASPIRIN (Verified Allergy, Unknown, 02/26/17) CORTISONE (Verified Allergy, Unknown, 02/26/17) Patient History Past Medical History: see triage record Past Surgical History: none Pertinent Family History: none Immunizations: UTD Reviewed Nursing Documentation: PMH: Agreed, PSxH: Agreed (Brigida Ryan) Nursing Documentation-PMH Hx Cardiac Problems: Yes - Pacer Hx Pacemaker: Yes Hx Asthma: Yes Hx COPD: Yes - COPD Hx Cancer: No Hx Gastrointestinal Problems: No Hx Neurological Problems: No (Brigida Ryan) Review of Systems All Other Systems: negative except mentioned in HPI (Brigida Ryan) Physical Exam Vital Signs Date Time Temp Pulse Resp B/P Pulse Ox O2 Delivery O2 Flow Rate FiO2 04/30/17 13:31 97.5 74 24 115/64 98 Room Air Sp02 EP Interpretation: reviewed, normal General Appearance: alert, GCS 15, non-toxic, moderate distress, thin Head: normocephalic, atraumatic Eyes: bilateral eye PERRL, bilateral eye normal inspection ENT: hearing grossly normal, normal pharynx, no angioedema, normal voice Neck: full range of motion, supple/symm/no masses Respiratory: lungs clear, normal breath sounds, wheezing Cardiovascular #1: regular rate, rhythm, no edema Gastrointestinal: normal bowel sounds, non tender, soft, no guarding, no rebound Rectal: deferred Genitourinary: normal inspection, no CVA tenderness Musculoskeletal: back normal, gait/station normal, normal range of motion, non- tender, no calf tenderness Neurologic: alert, oriented x3, responsive, motor strength/tone normal, sensory intact, speech normal Psychiatric: judgement/insight normal, memory normal, mood/affect normal Skin: normal color, no rash, warm/dry, well hydrated (Brigida Ryan) Medical Decision Making PA Attestation Dr. Caballero is my supervising Physician whom patient management has been discussed with. (Brigida Ryan) Diagnostic Impression: Primary Impression: COPD (chronic obstructive pulmonary disease) Qualified Codes: J44.1 - Chronic obstructive pulmonary disease with (acute) exacerbation ER Course Pt. presents to the ED c/o SOB, 07/30 CP since this morning. pt. also reports coughing more than usual lately. pt .denies recent illness , fevers, or chills. pt. reports taking spiriva and albuterol inhalers at home. Pain is left sided and worsened with breathing as well as leaning forward. Ddx considered but are not limited to SD, pneumonia, contusion, costochondritis , PE, ACS, Shoulder strain, Chest wall contusion. aortic dissection. Vital signs: are WNL, pt. is afebrile H&PE are most consistent with COPD exacerbation. ORDERS: - EK BPM NSR with J-point elevation per preliminary interpretation by Dr. Caballero, and scribed by CM Ryan -CBC: anemia -CMP: unremarkable -CK-MB: WNL -Troponins: WNL CXR: ED INTERVENTIONS: -Albuterol Nebulized treatment -4mg Morphine IV - PT. placed on cardiac monitoring. DISPOSITION: at this time pt. will be admitted to Dr. Pereira for COPD exacerbation, Dr. Caballero facilitated Dr. To Dr. transfer of care by telephone conversation at 1547 Dr. Pereira agreed to admit the pt. and to continue pt. care management. (Brigida Ryan) ER Course Patient known to me. I agree with above assessment. Examined. No rub. Exp wheezes. Reviewed EKG, CXR and labs. Improved with treatment. Message to Dr Leal. Then discussed. Patient stable for transfer. (Gus Caballero M.D.) EKG Diagnostic Results Rate: normal - 72 Rhythm: NSR ST Segments: other - J-point elevation per preliminary interpretation by Dr. Caballero, and scribed by CM Ryan ASA given to the pt in ED: No PA Scribe Text J-point elevation per preliminary interpretation by Dr. Caballero, and scribed by CM Ryan (Brigida Ryan) Chest X-Ray Diagnostic Results Chest X-Ray Diagnostic Results : Chest X-Ray Ordered: Yes # of Views/Limited/Complete: 1 View Interpretation: no consolidation, no effusion, no pneumothorax, no acute cardiopulmonary disease Impression: No acute disease Interpreting ER Provider: Dr. Dewitt PA Scribe Text this preliminary interpretation done by Dr. Dewitt the on- coming physician was scribed by CM Ryan. (Brigida Ryan) Last Vital Signs Date Time Temp Pulse Resp B/P Pulse Ox O2 Delivery O2 Flow Rate FiO2 04/30/17 13:44 70 22 100 Room Air 04/30/17 13:31 97.5 115/64 (Brigida Ryan) Disposition: ADMITTED INPATIENT Condition: Serious - but stable for transfer Referrals: [facility]ERR[facility] (PCP) Brigida Ryan Apr 30, 2017 13:49 Gus Caballero M.D. Apr 30, 2017 15:50
[2017-04-30] MEDS ORDERED: Morphine Sulfate 4mg/ml Inj IVP ONE (14:00)
--- NOTE | 2017-04-30 14:12 | Diagnostic Imaging Report ---
Indication: Chest pain Comparison: 02/26/17 A single view chest radiograph was obtained. Findings: Cardiomediastinal appearance is within normal limits for age. Left pacemaker again noted. Pulmonary vascularity is appropriate. The diaphragmatic contour is smooth and costophrenic angles are sharp. No pleural effusions are identified. The bones are unremarkable. Impression: No acute findings
[2017-04-30 14:32] LABS: BASOPHILS % (AUTO) 1.1 % (0.0-2.0); EOSINOPHILS % (AUTO) 4.7 % (0.0-3.0); LYMPHOCYTES % (AUTO) 34.3 % (20.0-45.0); MEAN CORPUSCULAR HEMOGLOBIN 20.4 PG (27.0-31.0); MEAN CORPUSCULAR HGB CONC 29.8 G/DL (32.0-36.0); MEAN CORPUSCULAR VOLUME 68 FL (80-99); MEAN PLATELET VOLUME 9.1 FL (6.5-10.1); MONOCYTES % (AUTO) 7.1 % (1.0-10.0); NEUTROPHILS % (AUTO) 52.9 % (45.0-75.0); PLATELET COUNT 286 K/UL (150-450); RED BLOOD COUNT 6.89 M/UL (4.70-6.10); RED CELL DISTRIBUTION WIDTH 13.2 % (11.6-14.8)
[2017-04-30 14:33] VITALS: BP 115/64
[2017-04-30 14:49] LABS: TROPONIN I < 0.30 ng/mL (<=0.30)
[2017-04-30 14:50] LABS: ALANINE AMINOTRANSFERASE 18 U/L (3-41); ALBUMIN/GLOBULIN RATIO 1.5 (1.0-2.7); ANION GAP 14 (5-15); ASPARTATE AMINO TRANSFERASE 13 U/L (5-40); CALCIUM 9.8 mg/dL (8.6-10.2); CARBON DIOXIDE 23 mEQ/L (20-30); CHLORIDE 102 mEQ/L (98-107); CREATININE 1.2 mg/dL (0.7-1.2); GLOMERULAR FILTRATION RATE > 60 mL/min (>60); HEMOLYSIS 11; POTASSIUM 4.6 mEQ/L (3.4-4.9); SODIUM 139 mEQ/L (135-145); TOTAL PROTEIN 7.5 g/dL (6.6-8.7)
[2017-04-30 15:12] LABS: CKMB < 1.5 ng/mL (< 6.7)
[2017-04-30 17:00] VITALS: BP 101/38
[2017-04-30 17:17] VITALS: BP 101/38
--- NOTE | 2017-05-01 16:57 | Cardiology Report ---
APPROVED REPORT EKG Measurement Heart [id number] Normal sinus rhythm Early repolarization Normal ECG
== END 2017-04-30 17:17 | disposition other institution (70) ==
LOC: EMR 13:28 → EDBEDREQSVC 14:02 → EMR 17:17
DX: J44.1 Chronic obstructive pulmonary disease with (acute) exacerbation (principal); Z88.6 Allergy status to analgesic agent; Z88.8 Allergy status to other drugs, medicaments and biological substances; Z95.0 Presence of cardiac pacemaker; J45.909 Unspecified asthma, uncomplicated
CPT/HCPCS: 36415; 71010; 80053; 82550; 82553; 84484; 85025; 93005; 94640; 96374; 99285; J2270

== ENCOUNTER 2017-09-14 15:28 | Inpatient (IN) | payer MEDICAID ==
[~2017-09-14] VITALS: Ht 190.5 cm; Wt 97.5 kg
[~2017-09-14 15:28] MED LIST changes: +PULMICORT FLE180 MCG IH; +SEREVENT DISKU50 MCG IH
[2017-09-14 15:45] VITALS: BP 156/87
[2017-09-14] MEDS ORDERED: Sodium Chloride 500ML 500 ML IV ONE (15:45)
[2017-09-14] MEDS ORDERED: MONTELUKAST SOD10 MG ORAL (15:48)
[2017-09-14] MEDS ORDERED: CLARITIN10 M2 ORAL (15:48)
[2017-09-14] MEDS: Ipratropium 0.02% Inh Soln 2.5ml UD HHN SCH ×3 (15:56→16:45)
[2017-09-14] MEDS: Albuterol ud Inhalation HHN SCH ×3 (15:57→16:45)
[2017-09-14 16:55] LABS: BASOPHILS % (AUTO) 1.6 % (0.0-2.0); EOSINOPHILS % (AUTO) 8.8 % (0.0-3.0); LYMPHOCYTES % (AUTO) 38.3 % (20.0-45.0); MEAN CORPUSCULAR HEMOGLOBIN 20.8 PG (27.0-31.0); MEAN CORPUSCULAR HGB CONC 30.5 G/DL (32.0-36.0); MEAN CORPUSCULAR VOLUME 68 FL (80-99); MEAN PLATELET VOLUME 8.8 FL (6.5-10.1); MONOCYTES % (AUTO) 6.9 % (1.0-10.0); NEUTROPHILS % (AUTO) 44.3 % (45.0-75.0); PLATELET COUNT 259 K/UL (150-450); RED BLOOD COUNT 7.09 M/UL (4.70-6.10); WHITE BLOOD COUNT 8.1 K/UL (4.8-10.8)
[2017-09-14] MEDS ORDERED: Azithromycin 500 MG in D5W 275 ML IVPB ONE (17:00)
[2017-09-14] MEDS ORDERED: cefTRIAXone 1 GM in D5W 55 ML IVPB ONE (17:00)
[2017-09-14 17:07] LABS: APPEARANCE,URINE CLEAR; KETONES,URINE NEGATIVE (NEGATIVE); LEUKOCYTE ESTERASE ,URINE NEGATIVE (NEGATIVE); NITRITE,URINE NEGATIVE (NEGATIVE); PH,URINE 6 (4.5-8.0); PROTEIN,URINE NEGATIVE (NEGATIVE); UROBILINOGEN,URINE NORMAL MG/DL (0.0-1.0)
[2017-09-14 17:13] LABS: ANION GAP 9 mmol/L (5-15); CALCIUM 8.9 MG/DL (8.5-10.1); CARBON DIOXIDE 29 MMOL/L (21-32); CHLORIDE 103 MMOL/L (98-107); CREATININE 1.3 MG/DL (0.55-1.30); GLOMERULAR FILTRATION RATE 57.7 mL/min (>60); POTASSIUM 4.3 MMOL/L (3.5-5.1); SODIUM 141 MMOL/L (136-145)
[2017-09-14] MEDS ORDERED: Promethazine/Codeine 5ml UD ORAL PRN (17:15)
[2017-09-14] MEDS ORDERED: Azithromycin 500mg Inj IV ONE (17:15)
[2017-09-14] MEDS ORDERED: Morphine Sulfate 2mg/ml Inj IVP PRN (17:15)
[2017-09-14] MEDS ORDERED: Nitroglycerin Subl 0.4mg tab SL PRN (17:15)
[2017-09-14] MEDS ORDERED: Ketorolac 30mg Inj IV PRN (17:15)
[2017-09-14] MEDS ORDERED: LORazepam Inj 2mg/ml 1ml IV PRN (17:15)
[2017-09-14 17:26] LABS: ALANINE AMINOTRANSFERASE 37 U/L (12-78); ALBUMIN/GLOBULIN RATIO 1.1 (1.0-2.7); ASPARTATE AMINO TRANSFERASE 16 U/L (15-37); CKMB 1.4 NG/ML (0.0-3.6); TOTAL PROTEIN 7.4 G/DL (6.4-8.2)
[2017-09-14 17:43] VITALS: BP 130/81
--- NOTE | 2017-09-14 17:58 | Emergency Room Report ---
History of Present Illness General Chief Complaint: Dyspnea/Respdistress Source: Patient Present Illness HPI 51-year-old male presents to ED for shortness of breath. Patient states he's been coughing and wheezing since yesterday. Patient has history of COPD. Patient has history of pacemaker. Denies fevers or chills. Denies chest pain. States cough is productive with yellowish phlegm. No other aggravating living factors. Denies any other associated symptoms Allergies: Coded Allergies: ASPIRIN (Verified Allergy, Unknown, 02/26/17) CORTISONE (Verified Allergy, Unknown, 02/26/17) Patient History Past Medical History: asthma, COPD Past Surgical History: pacemaker Pertinent Family History: none Social History: Denies: smoking, alcohol use, drug use Immunizations: UTD Reviewed Nursing Documentation: PMH: Agreed, PSxH: Agreed Nursing Documentation-PMH Hx Cardiac Problems: Yes Hx Pacemaker: Yes - Left Chest Pacemaker Hx Asthma: Yes Hx COPD: Yes - COPD Hx Cancer: No Hx Gastrointestinal Problems: No Hx Neurological Problems: No Review of Systems All Other Systems: negative except mentioned in HPI Physical Exam Vital Signs Date Time Temp Pulse Resp B/P (MAP) Pulse Ox O2 Delivery O2 Flow Rate FiO2 09/14/17 15:35 97.9 108 26 156/87 98 Room Air 09/14/17 15:45 2.0 09/14/17 16:01 28 Sp02 EP Interpretation: reviewed, normal General Appearance: no apparent distress, alert, GCS 15, non-toxic Head: normocephalic, atraumatic Eyes: bilateral eye normal inspection, bilateral eye PERRL ENT: hearing grossly normal, normal pharynx, no angioedema, normal voice Neck: full range of motion, supple/symm/no masses Respiratory: chest non-tender, wheezing Cardiovascular #1: regular rate, rhythm, no edema Cardiovascular #2: 2+ carotid (R), 2+ carotid (L), 2+ radial (R), 2+ radial (L) , 2+ dorsalis pedis (R), 2+ dorsalis pedis (L) Gastrointestinal: normal bowel sounds, non tender, soft, non-distended, no guarding, no rebound Rectal: deferred Genitourinary: normal inspection, no CVA tenderness Musculoskeletal: back normal, gait/station normal, normal range of motion, non- tender Neurologic: alert, oriented x3, responsive, motor strength/tone normal, sensory intact, speech normal Psychiatric: judgement/insight normal, memory normal, mood/affect normal, no suicidal/homicidal ideation Reflexes: 3+ bicep (R), 3+ bicep (L), 3+ tricep (R), 3+ tricep (L), 3+ knee (R) , 3+ knee (L) Skin: normal color, no rash, warm/dry, well hydrated Lymphatic: no adenopathy Medical Decision Making Diagnostic Impression: Primary Impression: COPD (chronic obstructive pulmonary disease) Qualified Codes: J44.9 - Chronic obstructive pulmonary disease, unspecified ER Course Hospital Course 51-year-old M presenting to ED with SOB. h/o COPD Differential diagnoses include: Pneumonia, CHF exacerbation, pneumothorax, fluid overload Clinical course Patient placed on stretcher. On bus driver/monitor with stable vitals. After initial history and physical, I ordered nebulizer treatments. I ordered labs, IV fluids, EKG, chest x-ray, blood cultures, UA. Labs - no leukocytosis noted, hemoglobin/hematocrit stable, electrolytes okay, lactate okay, troponins negative CXR - hyperinflated lungs. no infiltrates. pacemaker abx given. Case discussed with Dr. Sanchez and he agreed to the patient to his service for further care and support I feel this is a highly complex case requiring extensive working including EKG/ Rhythm strip, Xray/CT/US, Blood/urine lab work, repeat exams while in ED, and administration of strong opiates/narcotics for pain control, admission to hospital or close patient follow up. Diagnosis - COPD exacerbation Patient admitted to telemetry in serious condition Labs Test 09/14/17 16:20 09/14/17 16:40 White Blood Count 8.1 K/UL (4.8-10.8) Red Blood Count 7.09 M/UL (4.70-6.10) Hemoglobin 14.8 G/DL (14.2-18.0) Hematocrit 48.5 % (42.0-52.0) Mean Corpuscular Volume 68 FL (80-99) Mean Corpuscular Hemoglobin 20.8 PG (27.0-31.0) Mean Corpuscular Hemoglobin Concent 30.5 G/DL (32.0-36.0) Red Cell Distribution Width 13.0 % (11.6-14.8) Platelet Count 259 K/UL (150-450) Mean Platelet Volume 8.8 FL (6.5-10.1) Neutrophils (%) (Auto) 44.3 % (45.0-75.0) Lymphocytes (%) (Auto) 38.3 % (20.0-45.0) Monocytes (%) (Auto) 6.9 % (1.0-10.0) Eosinophils (%) (Auto) 8.8 % (0.0-3.0) Basophils (%) (Auto) 1.6 % (0.0-2.0) Sodium Level 141 MMOL/L (136-145) Potassium Level 4.3 MMOL/L (3.5-5.1) Chloride Level 103 MMOL/L (98-107) Carbon Dioxide Level 29 MMOL/L (21-32) Anion Gap 9 mmol/L (5-15) Blood Urea Nitrogen 18 mg/dL (7-18) Creatinine 1.3 MG/DL (0.55-1.30) Estimat Glomerular Filtration Rate 57.7 mL/min (>60) Glucose Level 147 MG/DL (74-106) Lactic Acid Level 1.70 mmol/L (0.66-2.22) Calcium Level 8.9 MG/DL (8.5-10.1) Total Bilirubin 0.3 MG/DL (0.2-1.0) Aspartate Amino Transf (AST/SGOT) 16 U/L (15-37) Alanine Aminotransferase (ALT/SGPT) 37 U/L (12-78) Alkaline Phosphatase 88 U/L (46-116) Total Creatine Kinase 78 U/L (26-308) Creatine Kinase MB 1.4 NG/ML (0.0-3.6) Creatine Kinase MB Relative Index 1.7 Troponin I 0.000 ng/mL (0.000-0.056) Pro-B-Type Natriuretic Peptide 26 pg/mL (0-125) Total Protein 7.4 G/DL (6.4-8.2) Albumin 3.9 G/DL (3.4-5.0) Globulin 3.5 g/dL Albumin/Globulin Ratio 1.1 (1.0-2.7) Urine Color Pale yellow Urine Appearance Clear Urine pH 6 (4.5-8.0) Urine Specific [place] 1.020 (1.005-1.035) Urine Protein Negative (NEGATIVE) Urine Glucose (UA) Negative (NEGATIVE) Urine Ketones Negative (NEGATIVE) Urine Occult Blood Negative (NEGATIVE) Urine Nitrite Negative (NEGATIVE) Urine Bilirubin Negative (NEGATIVE) Urine Urobilinogen Normal MG/DL (0.0-1.0) Urine Leukocyte Esterase Negative (NEGATIVE) EKG Diagnostic Results Rate: normal Rhythm: NSR ST Segments: no acute changes ASA given to the pt in ED: No Rhythm Strip Diag. Results EP Interpretation: yes Rhythm: NSR, no PVC's, no ectopy Chest X-Ray Diagnostic Results Chest X-Ray Diagnostic Results : Chest X-Ray Ordered: Yes # of Views/Limited/Complete: 1 View Indication: Shortness of Breath EP Interpretation: Yes Interpretation: no consolidation, no pneumothorax, no acute cardiopulmonary disease, other - atelectasis. hyperinflated lungs\ Impression: Other - copd Electronically Signed by: Electronically signed by Matty Dewitt MD Last Vital Signs Date Time Temp Pulse Resp B/P (MAP) Pulse Ox O2 Delivery O2 Flow Rate FiO2 09/14/17 17:48 93 16 98 Nasal Cannula 2.0 28 09/14/17 17:43 97.8 130/81 Status: improved Disposition: ADMITTED INPATIENT Condition: Serious Referrals: [facility] (PCP) MATTY DEWITT M.D. Sep 14, 2017 17:58
[2017-09-14 18:15] VITALS: BP 137/84
[2017-09-14 19:32] VITALS: BP 125/71
[2017-09-14] MEDS: Albuterol/Ipratropium 3ml neb HHN PRN (20:28)
[2017-09-14] MEDS ORDERED: Piperacillin/Tazobactam 2.25 GM in D5W 55 ML IV SCH (22:00)
[2017-09-14] MEDS: Theophylline ER 100mg ORAL SCH (22:40)
[2017-09-14] MEDS: Heparin 5000 units/ml inj SUBQ SCH (22:43)
[2017-09-14] MEDS: Zosyn 3.375gm q8h **Extended infusion IVPB SCH ×2 (22:45)
[2017-09-14 23:23] VITALS: BP 136/64
[2017-09-15 03:27] VITALS: BP 121/58
[2017-09-15] MEDS: Albuterol/Ipratropium 3ml neb HHN PRN ×2 (03:34→07:11)
[2017-09-15] MEDS: Zosyn 3.375gm q8h **Extended infusion IVPB SCH ×6 (06:06→22:27)
[2017-09-15 08:29] VITALS: BP 127/68
[2017-09-15] MEDS: Montelukast 10mg tablet ORAL SCH (09:23)
[2017-09-15] MEDS: Theophylline ER 100mg ORAL SCH ×2 (09:23→21:16)
[2017-09-15] MEDS: Heparin 5000 units/ml inj SUBQ SCH ×2 (09:24→21:17)
--- NOTE | 2017-09-15 09:47 | Diagnostic Imaging Report ---
Indication: Shortness of breath Technique: XRAY CHEST 1 V Comparison: 04/30/17 Findings: Cardiomediastinal silhouette is stable. Atherosclerotic changes are present. There is a left chest pacemaker. There is no consolidation, pneumothorax or pleural effusion. Osseous structures are grossly stable. Impression: No acute cardiopulmonary disease. Left chest pacemaker.
[2017-09-15] MEDS: Albuterol/Ipratropium 3ml neb HHN SCH ×4 (11:34→23:49)
--- NOTE | 2017-09-15 12:11 | History and Physical ---
History of Present Illness General Date patient seen: Sep 15, 2017 Reason for Hospitalization: Dyspnea/Respdistress Present Illness HPI 51-year-old male with hx of pacemaker, COPD, smoker presented to ED for shortness of breath. Patient states he's been coughing and wheezing since yesterday. Denies fevers or chills. Denies chest pain. States cough is productive with yellowish phlegm. No other aggravating living factors. Denies any other associated symptoms Allergies: Coded Allergies: ASPIRIN (Verified Allergy, Unknown, 02/26/17) CORTISONE (Verified Allergy, Unknown, 02/26/17) Medication History Scheduled Albuterol Sulfate (Ventolin Hfa), 1 PUFF INH EVERY 6 HOURS, (Reported) Fluticasone/Salmeterol (Advair 100-50 Diskus), 1 PUFF INH EVERY 12 HOURS, ( Reported) Loratadine (Claritin), 10 MG ORAL DAILY, (Reported) Montelukast Sodium* (Montelukast Sodium*), 10 MG ORAL DAILY, (Reported) Tiotropium [place]* (Spiriva*), 1 PUFF INH DAILY, (Reported) Miscellaneous Medications Budesonide (Pulmicort Flexhaler), 180 MCG IH, (Reported) Ipratropium [place] (Atrovent Hfa), 12.9 GM IH, (Reported) Salmeterol Xinafoate (Serevent Diskus), 50 MCG IH, (Reported) Patient History Healthcare decision maker Resuscitation status Full Code Advanced Directive on File No Past Medical/Surgical History Past Medical/Surgical History: (1) Pacemaker (2) COPD (chronic obstructive pulmonary disease) Review of Systems All Other Systems: negative except mentioned in HPI Physical Exam General Appearance: WD/WN Lines, tubes and drains: peripheral, central line HEENT: normocephalic, atraumatic, anicteric Neck: non-tender, normal alignment Respiratory/Chest: chest wall non-tender, lungs clear Breasts: no masses Cardiovascular/Chest: normal peripheral pulses Abdomen: normal bowel sounds Genitourinary/Rectal: normal genital exam Last 24 Hour Vital Signs Date Time Temp Pulse Resp B/P (MAP) Pulse Ox O2 Delivery O2 Flow Rate FiO2 09/15/17 11:36 78 20 98 Nasal Cannula 2.0 28 09/15/17 08:29 98.1 84 20 127/68 Nasal Cannula 11/26/17 08:00 97 09/15/17 07:52 83 22 100 Nasal Cannula 2.0 28 09/15/17 07:51 28 09/15/17 07:15 72 20 98 Nasal Cannula 2.0 28 09/15/17 07:14 98 Nasal Cannula 2.0 28 09/15/17 04:00 88 09/15/17 03:49 83 24 99 Nasal Cannula 2.0 28 09/15/17 03:34 84 24 98 Nasal Cannula 2.0 28 09/15/17 03:34 28 09/15/17 03:34 84 24 Nasal Cannula 2.0 28 09/15/17 03:27 97.3 87 25 121/58 97 Nasal Cannula 87 09/15/17 00:00 77 09/14/17 23:23 97.3 80 25 136/64 99 Nasal Cannula 09/14/17 20:39 97 20 97 Nasal Cannula 2.0 28 09/14/17 20:28 97 20 95 Nasal Cannula 2.0 28 09/14/17 20:28 28 09/14/17 20:00 91 09/14/17 19:32 97.3 89 25 125/71 Nasal Cannula 09/14/17 18:15 97.3 99 25 137/84 98 Nasal Cannula 2.0 09/14/17 17:54 97.8 85 16 130/81 98 Nasal Cannula 2.0 28 09/14/17 17:48 93 16 98 Nasal Cannula 2.0 28 09/14/17 17:43 97.8 85 22 130/81 98 Nasal Cannula 2.0 09/14/17 16:30 106 24 Nasal Cannula 2.0 28 09/14/17 16:03 106 24 100 Nasal Cannula 2.0 28 09/14/17 16:01 106 24 Nasal Cannula 2.0 28 09/14/17 15:45 97.8 108 26 156/87 98 Nasal Cannula 2.0 09/14/17 15:35 97.9 108 26 156/87 98 Room Air Intake and Output 09/15/17 09/16/17 19:00 07:00 Intake Total 281.25 ml Balance 281.25 ml Intake Oral 240 ml IV Total 41.25 ml Laboratory Tests Test 09/14/17 16:20 09/14/17 16:40 White Blood Count 8.1 K/UL (4.8-10.8) Red Blood Count 7.09 M/UL (4.70-6.10) H Hemoglobin 14.8 G/DL (14.2-18.0) Hematocrit 48.5 % (42.0-52.0) Mean Corpuscular Volume 68 FL (80-99) L Mean Corpuscular Hemoglobin 20.8 PG (27.0-31.0) L Mean Corpuscular Hemoglobin Concent 30.5 G/DL (32.0-36.0) L Red Cell Distribution Width 13.0 % (11.6-14.8) Platelet Count 259 K/UL (150-450) Mean Platelet Volume 8.8 FL (6.5-10.1) Neutrophils (%) (Auto) 44.3 % (45.0-75.0) L Lymphocytes (%) (Auto) 38.3 % (20.0-45.0) Monocytes (%) (Auto) 6.9 % (1.0-10.0) Eosinophils (%) (Auto) 8.8 % (0.0-3.0) H Basophils (%) (Auto) 1.6 % (0.0-2.0) Sodium Level 141 MMOL/L (136-145) Potassium Level 4.3 MMOL/L (3.5-5.1) Chloride Level 103 MMOL/L (98-107) Carbon Dioxide Level 29 MMOL/L (21-32) Anion Gap 9 mmol/L (5-15) Blood Urea Nitrogen 18 mg/dL (7-18) Creatinine 1.3 MG/DL (0.55-1.30) Estimat Glomerular Filtration Rate 57.7 mL/min (>60) Glucose Level 147 MG/DL (74-106) H Lactic Acid Level 1.70 mmol/L (0.66-2.22) Calcium Level 8.9 MG/DL (8.5-10.1) Total Bilirubin 0.3 MG/DL (0.2-1.0) Aspartate Amino Transf (AST/SGOT) 16 U/L (15-37) Alanine Aminotransferase (ALT/SGPT) 37 U/L (12-78) Alkaline Phosphatase 88 U/L (46-116) Total Creatine Kinase 78 U/L (26-308) Creatine Kinase MB 1.4 NG/ML (0.0-3.6) Creatine Kinase MB Relative Index 1.7 Troponin I 0.000 ng/mL (0.000-0.056) Pro-B-Type Natriuretic Peptide 26 pg/mL (0-125) Total Protein 7.4 G/DL (6.4-8.2) Albumin 3.9 G/DL (3.4-5.0) Globulin 3.5 g/dL Albumin/Globulin Ratio 1.1 (1.0-2.7) Urine Color Pale yellow Urine Appearance Clear Urine pH 6 (4.5-8.0) Urine Specific [place] 1.020 (1.005-1.035) Urine Protein Negative (NEGATIVE) Urine Glucose (UA) Negative (NEGATIVE) Urine Ketones Negative (NEGATIVE) Urine Occult Blood Negative (NEGATIVE) Urine Nitrite Negative (NEGATIVE) Urine Bilirubin Negative (NEGATIVE) Urine Urobilinogen Normal MG/DL (0.0-1.0) Urine Leukocyte Esterase Negative (NEGATIVE) Height (Feet): 6 Height (Inches): 3.00 Weight (Pounds): 215 Medications Current Medications Medications (Trade) Dose Ordered Sig/Leno Route PRN Reason Start Time Stop Time Status Last Admin Dose Admin Albuterol/ Ipratropium (Albuterol/ Ipratropium) 3 ml Q4HRT HHN 09/15/17 11:30 09/20/17 11:29 09/15/17 11:34 Dextrose (Dextrose 50%) STAT PRN IV Hypoglycemia 09/14/17 17:15 10/14/17 17:14 Heparin Sodium (Porcine) (Heparin 5000 units/ml) 5,000 units EVERY 12 HOURS SUBQ 09/14/17 21:00 10/14/17 20:59 09/15/17 09:24 Lorazepam (Ativan 2mg/ml 1ml) 0.5 mg Q4H PRN IV For Anxiety 09/14/17 17:15 09/21/17 17:14 Montelukast Sodium (Singulair) 10 mg DAILY ORAL 09/15/17 09:00 10/15/17 08:59 09/15/17 09:23 Morphine Sulfate (Morphine Sulfate) 2 mg Q4H PRN IVP Severe Pain (Pain Scale 7-10) 09/14/17 17:15 09/21/17 17:14 Nitroglycerin (Ntg) 0.4 mg Q5M X 3 DOSES PRN SL Prn Chest Pain 09/14/17 17:15 10/14/17 17:14 Ondansetron HCl (Zofran) 4 mg Q6H PRN IVP Nausea & Vomiting 09/14/17 17:15 10/14/17 17:14 Piperacillin Sod/ Tazobactam Sod 3.375 gm/Dextrose 55 ml @ 13.75 mls/ hr EVERY 8 HOURS IVPB 09/14/17 22:00 09/19/17 21:59 09/15/17 06:06 Promethazine HCl/ Codeine (Phenergan with Codeine) 5 ml Q6H PRN ORAL cough 09/14/17 17:15 10/14/17 17:14 Temazepam (Restoril) 15 mg HSPRN PRN ORAL Insomnia 09/14/17 21:00 09/21/17 20:59 Theophylline (Fausto-Dur) 100 mg EVERY 12 HOURS ORAL 09/14/17 21:00 10/14/17 20:59 09/15/17 09:23 Assessment/Plan Problem List: (1) COPD exacerbation ICD Codes: J44.1 - Chronic obstructive pulmonary disease with (acute) exacerbation SNOMED: 143474726413967 (2) Respiratory distress ICD Codes: R06.03 - Acute respiratory distress SNOMED: 790188567 (3) Pacemaker ICD Codes: Z95.0 - Presence of cardiac pacemaker SNOMED: 503964169, 542810991 Assessment/Plan check sputum iv abx pt is allergic to steroids Uses Advair instead cardio evaluation for pacemaker HAYDEN FREGOSO Sep 15, 2017 12:11
[2017-09-15 12:23] VITALS: BP 159/72
[2017-09-15 12:26] VITALS: BP 131/79
--- NOTE | 2017-09-15 14:57 | Cardiology Progress Note ---
Assessment/Plan Assessment/Plan [id number] aspiration? swallow eval Objective Last 24 Hour Vital Signs Date Time Temp Pulse Resp B/P (MAP) Pulse Ox O2 Delivery O2 Flow Rate FiO2 09/15/17 12:26 97.9 89 20 131/79 97 Room Air 09/15/17 12:00 95 09/15/17 11:46 86 20 100 Nasal Cannula 2.0 28 09/15/17 11:46 28 09/15/17 11:36 78 20 98 Nasal Cannula 2.0 28 09/15/17 08:29 98.1 84 20 127/68 Nasal Cannula 09/15/17 08:00 97 09/15/17 07:52 83 22 100 Nasal Cannula 2.0 28 09/15/17 07:51 28 09/15/17 07:15 72 20 98 Nasal Cannula 2.0 28 09/15/17 07:14 98 Nasal Cannula 2.0 28 09/15/17 04:00 88 09/15/17 03:49 83 24 99 Nasal Cannula 2.0 28 09/15/17 03:34 84 24 98 Nasal Cannula 2.0 28 09/15/17 03:34 28 09/15/17 03:34 84 24 Nasal Cannula 2.0 28 09/15/17 03:27 97.3 87 25 121/58 97 Nasal Cannula 87 09/15/17 00:00 77 09/14/17 23:23 97.3 80 25 136/64 99 Nasal Cannula 09/14/17 20:39 97 20 97 Nasal Cannula 2.0 28 09/14/17 20:28 97 20 95 Nasal Cannula 2.0 28 09/14/17 20:28 28 09/14/17 20:00 91 09/14/17 19:32 97.3 89 25 125/71 Nasal Cannula 09/14/17 18:15 97.3 99 25 137/84 98 Nasal Cannula 2.0 09/14/17 17:54 97.8 85 16 130/81 98 Nasal Cannula 2.0 28 09/14/17 17:48 93 16 98 Nasal Cannula 2.0 28 09/14/17 17:43 97.8 85 22 130/81 98 Nasal Cannula 2.0 09/14/17 16:30 106 24 Nasal Cannula 2.0 28 09/14/17 16:03 106 24 100 Nasal Cannula 2.0 28 09/14/17 16:01 106 24 Nasal Cannula 2.0 28 09/14/17 15:45 97.8 108 26 156/87 98 Nasal Cannula 2.0 09/14/17 15:35 97.9 108 26 156/87 98 Room Air Intake and Output 09/15/17 09/16/17 19:00 07:00 Intake Total 401.25 ml Output Total 400 ml Balance 1.25 ml Intake Oral 360 ml IV Total 41.25 ml Output Urine Total 400 ml # Bowel Movements 1 Laboratory Tests Test 09/14/17 16:20 09/14/17 16:40 White Blood Count 8.1 K/UL (4.8-10.8) Red Blood Count 7.09 M/UL (4.70-6.10) H Hemoglobin 14.8 G/DL (14.2-18.0) Hematocrit 48.5 % (42.0-52.0) Mean Corpuscular Volume 68 FL (80-99) L Mean Corpuscular Hemoglobin 20.8 PG (27.0-31.0) L Mean Corpuscular Hemoglobin Concent 30.5 G/DL (32.0-36.0) L Red Cell Distribution Width 13.0 % (11.6-14.8) Platelet Count 259 K/UL (150-450) Mean Platelet Volume 8.8 FL (6.5-10.1) Neutrophils (%) (Auto) 44.3 % (45.0-75.0) L Lymphocytes (%) (Auto) 38.3 % (20.0-45.0) Monocytes (%) (Auto) 6.9 % (1.0-10.0) Eosinophils (%) (Auto) 8.8 % (0.0-3.0) H Basophils (%) (Auto) 1.6 % (0.0-2.0) Sodium Level 141 MMOL/L (136-145) Potassium Level 4.3 MMOL/L (3.5-5.1) Chloride Level 103 MMOL/L (98-107) Carbon Dioxide Level 29 MMOL/L (21-32) Anion Gap 9 mmol/L (5-15) Blood Urea Nitrogen 18 mg/dL (7-18) Creatinine 1.3 MG/DL (0.55-1.30) Estimat Glomerular Filtration Rate 57.7 mL/min (>60) Glucose Level 147 MG/DL (74-106) H Lactic Acid Level 1.70 mmol/L (0.66-2.22) Calcium Level 8.9 MG/DL (8.5-10.1) Total Bilirubin 0.3 MG/DL (0.2-1.0) Aspartate Amino Transf (AST/SGOT) 16 U/L (15-37) Alanine Aminotransferase (ALT/SGPT) 37 U/L (12-78) Alkaline Phosphatase 88 U/L (46-116) Total Creatine Kinase 78 U/L (26-308) Creatine Kinase MB 1.4 NG/ML (0.0-3.6) Creatine Kinase MB Relative Index 1.7 Troponin I 0.000 ng/mL (0.000-0.056) Pro-B-Type Natriuretic Peptide 26 pg/mL (0-125) Total Protein 7.4 G/DL (6.4-8.2) Albumin 3.9 G/DL (3.4-5.0) Globulin 3.5 g/dL Albumin/Globulin Ratio 1.1 (1.0-2.7) Urine Color Pale yellow Urine Appearance Clear Urine pH 6 (4.5-8.0) Urine Specific [place] 1.020 (1.005-1.035) Urine Protein Negative (NEGATIVE) Urine Glucose (UA) Negative (NEGATIVE) Urine Ketones Negative (NEGATIVE) Urine Occult Blood Negative (NEGATIVE) Urine Nitrite Negative (NEGATIVE) Urine Bilirubin Negative (NEGATIVE) Urine Urobilinogen Normal MG/DL (0.0-1.0) Urine Leukocyte Esterase Negative (NEGATIVE) MAHOGANY TOBIAS Sep 15, 2017 14:57
--- NOTE | 2017-09-15 15:29 | Cardiology Report ---
APPROVED REPORT EKG Measurement Heart [id number] Normal sinus rhythm ST elevation, consider early repolarization, pericarditis, or injury Nonspecific ST abnormality Abnormal ECG
[2017-09-15] MEDS ORDERED: NS 500ML ONE (16:07)
[2017-09-15 16:16] VITALS: BP 128/67
--- NOTE | 2017-09-15 18:00 | Consultation ---
DATE OF CONSULTATION: 09/15/2017 CARDIOLOGY CONSULTATION CONSULTING PHYSICIAN: Omid Archer M.D. ATTENDING PHYSICIAN: Nimesh Sanchez M.D. REFERRING PHYSICIAN: Nimesh Sanchez M.D. REASON FOR EVALUATION: Shortness of breath. HISTORY OF PRESENT ILLNESS: This is a 51-year-old gentleman with history of multiple medical problems, admitted with COPD. He has had increasing shortness of breath for the past 10 days or so. He has not been able to see primary care doctor, . He had been coughing with sputum production described as black and [place], coughing, wheezing, shortness of breath, shortness of breath at rest, and shortness of breath with exertion. He uses 3 or 4 pillows at night to sleep with for help with shortness of breath, but poor sleep anyway. No dizziness or lightheadedness on standing. No heart pounding or palpitations. PAST MEDICAL HISTORY: Positive for history of prior COPD with exacerbation here, history of status asthmaticus as well as history of permanent pacemaker implantation, and he has had an evaluation at [facility] sometime ago and angiogram, apparently he was told it was all okay. He had pacemaker implantation for bradycardia. He was last seen by Dr. Do approximately 6 months ago. ALLERGIES: He has allergies to aspirin and cortisone. SOCIAL HISTORY: He does smoke at this time. He stopped and started back and again has stopped approximately 2 weeks ago. REVIEW OF SYSTEMS: GASTROINTESTINAL: Negative. GENITOURINARY: Negative. PULMONARY: Positive for coughing and wheezing. CONSTITUTIONAL: Negative. NEUROLOGIC: Negative. PHYSICAL EXAMINATION: GENERAL: Shows to be a middle-aged gentleman, in no respiratory distress. NECK: Supple. No jugular venous distention. LUNGS: Decreased breath sounds bilaterally. Inspiratory and expiratory wheezes. CARDIAC: Regular rate and rhythm. No heaves, thrills, or gallops noted. ABDOMEN: Soft, nontender. Positive bowel sounds. EXTREMITIES: There is no clubbing, cyanosis, nor is there any edema. NEUROLOGICAL: He is awake, alert, responsive, and in no apparent respiratory distress. LABORATORY AND DIAGNOSTIC DATA: White count of 8.1, hemoglobin 14.9, and platelet count of 259,000. Sodium was 141, potassium 4.3, chloride 102, bicarbonate 29, BUN of 18, creatinine 1.3, glucose of 147 although it previously was 103. Troponin 0.03. Lactic acid of 1.7. Liver function tests are normal and his urinalysis fairly unremarkable. A chest x-ray was performed in the emergency room, report by radiologist was read as no acute cardiopulmonary disease and left-sided pacemaker is present. The patient's electrocardiogram shows sinus rhythm, normal QRS axis, no ST or T-wave abnormalities of any significant degree. ASSESSMENT AND PLAN: 1. Chronic obstructive pulmonary disease with acute exacerbation. 2. Tobacco use disorder. 3. Permanent pacemaker implantation for bradycardia. Dr. Sanchez, this patient was seen in cardiac consultation. From cardiac point of view, he appears to be stable. He does indicate that he has tendency of having coughing after he eats some foods and drinks something. The question is for possibility of aspiration although it would be unlikely. Swallow evaluation will be ordered. The patient will be on telemetry overnight. Hopefully, we will by tomorrow may be able to discontinue telemetry if all the testing is negative. Omid Archer M.D. DR: Og JOB#: [id number] CC:
[2017-09-15 20:16] VITALS: BP 118/74
[2017-09-16] VITALS: BP 127/80
[2017-09-16] MEDS: Albuterol/Ipratropium 3ml neb HHN SCH ×5 (04:02→20:44)
[2017-09-16] MEDS: Zosyn 3.375gm q8h **Extended infusion IVPB SCH ×4 (05:19→14:47)
[2017-09-16 07:23] LABS: BASOPHILS % (AUTO) 1.5 % (0.0-2.0); LYMPHOCYTES % (AUTO) 46.9 % (20.0-45.0); MEAN CORPUSCULAR HEMOGLOBIN 21.2 PG (27.0-31.0); MEAN CORPUSCULAR HGB CONC 31.2 G/DL (32.0-36.0); MEAN CORPUSCULAR VOLUME 68 FL (80-99); MONOCYTES % (AUTO) 6.7 % (1.0-10.0); PLATELET COUNT 225 K/UL (150-450); RED BLOOD COUNT 6.48 M/UL (4.70-6.10); RED CELL DISTRIBUTION WIDTH 13.3 % (11.6-14.8)
[2017-09-16 07:41] LABS: ALANINE AMINOTRANSFERASE 34 U/L (12-78); ANION GAP 9 mmol/L (5-15); ASPARTATE AMINO TRANSFERASE 15 U/L (15-37); CARBON DIOXIDE 27 MMOL/L (21-32); CHLORIDE 105 MMOL/L (98-107); CREATININE 1.5 MG/DL (0.55-1.30); SODIUM 141 MMOL/L (136-145)
[2017-09-16] MEDS: Theophylline ER 100mg ORAL SCH ×2 (08:21→21:01)
[2017-09-16] MEDS: Montelukast 10mg tablet ORAL SCH (08:21)
[2017-09-16] MEDS: Heparin 5000 units/ml inj SUBQ SCH ×2 (08:23→21:04)
[2017-09-16] MEDS ORDERED: Albuterol/Ipratropium 3ml neb HHN PRN ×3 (11:30→15:15)
--- NOTE | 2017-09-16 11:36 | Pulmonology Progress Note ---
Assessment/Plan Problems: (1) COPD exacerbation (2) Respiratory distress (3) Pacemaker Assessment/Plan cardio note appreciated telemetry records reviewed. med/surg check sputum continue abx Subjective ROS Limited/Unobtainable: No Constitutional: Reports: no symptoms HEENT: Repors: no symptoms Allergies: Coded Allergies: ASPIRIN (Verified Allergy, Unknown, 02/26/17) CORTISONE (Verified Allergy, Unknown, 02/26/17) Objective Last 24 Hour Vital Signs Date Time Temp Pulse Resp B/P (MAP) Pulse Ox O2 Delivery O2 Flow Rate FiO2 09/16/17 11:26 71 24 98 Nasal Cannula 2.0 28 09/16/17 11:17 86 24 95 Nasal Cannula 2.0 28 09/16/17 08:00 108 09/16/17 07:29 78 20 96 Nasal Cannula 2.0 28 09/16/17 07:26 Nasal Cannula 2.0 28 09/16/17 07:22 77 20 92 Nasal Cannula 2.0 28 09/16/17 07:22 92 Nasal Cannula 2.0 28 09/16/17 04:00 72 20 97 Nasal Cannula 2.0 28 09/16/17 03:51 73 09/16/17 03:45 70 20 95 Nasal Cannula 2.0 28 09/16/17 00:10 20 94 Nasal Cannula 2.0 09/16/17 00:00 73 09/16/17 00:00 97.5 74 24 127/80 94 Nasal Cannula 2.0 09/15/17 23:51 76 20 98 Nasal Cannula 2.0 28 09/15/17 23:49 74 20 96 Nasal Cannula 2.0 28 09/15/17 20:16 98.1 82 20 118/74 96 Nasal Cannula 2.0 09/15/17 20:00 19 97 Nasal Cannula 2.0 09/15/17 20:00 83 09/15/17 19:45 78 20 99 Nasal Cannula 2.0 28 09/15/17 19:30 75 20 98 Nasal Cannula 2.0 28 09/15/17 19:30 Nasal Cannula 2.0 28 09/15/17 19:30 98 Nasal Cannula 2.0 28 09/15/17 16:16 98.1 85 20 128/67 98 Room Air 09/15/17 16:00 Nasal Cannula 2.0 09/15/17 16:00 91 09/15/17 15:16 84 20 100 Nasal Cannula 2.0 28 09/15/17 15:16 28 09/15/17 15:05 86 20 95 Nasal Cannula 2.0 28 09/15/17 12:26 97.9 89 20 131/79 97 Room Air 09/15/17 12:00 95 09/15/17 12:00 97 Nasal Cannula 2.0 09/15/17 11:46 86 20 100 Nasal Cannula 2.0 28 09/15/17 11:46 28 09/15/17 11:36 78 20 98 Nasal Cannula 2.0 28 Intake and Output 09/16/17 09/17/17 19:00 07:00 Intake Total 13.75 ml Balance 13.75 ml IV Total 13.75 ml # Bowel Movements 1 General Appearance: WD/WN HEENT: normocephalic, atraumatic Respiratory/Chest: chest wall non-tender, lungs clear Cardiovascular: normal peripheral pulses, normal rate Abdomen: normal bowel sounds, soft, non tender, no organomegaly Extremities: no cyanosis Skin: no rash, no lesions Microbiology Date/Time Source Procedure Growth Status 09/14/17 16:30 Blood Blood Culture - Preliminary NO GROWTH AFTER 24 HOURS Resulted 09/14/17 16:20 Blood Blood Culture - Preliminary NO GROWTH AFTER 24 HOURS Resulted Laboratory Tests 09/16/17 06:25: White Blood Count 7.0, Red Blood Count 6.48H, Hemoglobin 13.8L, Hematocrit 44.1 , Mean Corpuscular Volume 68L, Mean Corpuscular Hemoglobin 21.2L, Mean Corpuscular Hemoglobin Concent 31.2L, Red Cell Distribution Width 13.3, Platelet Count 225, Mean Platelet Volume 8.0, Neutrophils (%) (Auto) 31.0L, Lymphocytes (%) (Auto) 46.9H, Monocytes (%) (Auto) 6.7, Eosinophils (%) (Auto) 14.0H, Basophils (%) (Auto) 1.5, Sodium Level 141, Potassium Level 4.0, Chloride Level 105, Carbon Dioxide Level 27, Anion Gap 9, Blood Urea Nitrogen 12 , Creatinine 1.5H, Estimat Glomerular Filtration Rate 49.0, Glucose Level 107H, Calcium Level 9.0, Total Bilirubin 0.6, Aspartate Amino Transf (AST/SGOT) 15, Alanine Aminotransferase (ALT/SGPT) 34, Alkaline Phosphatase 72, Troponin I 0.002, Pro-B-Type Natriuretic Peptide 16, Total Protein 7.0, Albumin 3.5, Globulin 3.5, Albumin/Globulin Ratio 1.0 Current Medications Medications (Trade) Dose Ordered Sig/Leno Route PRN Reason Start Time Stop Time Status Last Admin Dose Admin Albuterol/ Ipratropium (Albuterol/ Ipratropium) 3 ml PRN PRN HHN Shortness of Breath 09/16/17 11:30 09/21/17 11:29 UNV Albuterol/ Ipratropium (Albuterol/ Ipratropium) 3 ml Q4HRT HHN 09/15/17 11:30 09/20/17 11:29 09/16/17 11:15 Dextrose (Dextrose 50%) STAT PRN IV Hypoglycemia 09/14/17 17:15 10/14/17 17:14 Heparin Sodium (Porcine) (Heparin 5000 units/ml) 5,000 units EVERY 12 HOURS SUBQ 09/14/17 21:00 10/14/17 20:59 09/16/17 08:23 Lorazepam (Ativan 2mg/ml 1ml) 0.5 mg Q4H PRN IV For Anxiety 09/14/17 17:15 09/21/17 17:14 Montelukast Sodium (Singulair) 10 mg DAILY ORAL 09/15/17 09:00 10/15/17 08:59 09/16/17 08:21 Morphine Sulfate (Morphine Sulfate) 2 mg Q4H PRN IVP Severe Pain (Pain Scale 7-10) 09/14/17 17:15 09/21/17 17:14 Nitroglycerin (Ntg) 0.4 mg Q5M X 3 DOSES PRN SL Prn Chest Pain 09/14/17 17:15 10/14/17 17:14 Ondansetron HCl (Zofran) 4 mg Q6H PRN IVP Nausea & Vomiting 09/14/17 17:15 10/14/17 17:14 Piperacillin Sod/ Tazobactam Sod 3.375 gm/Dextrose 55 ml @ 13.75 mls/ hr EVERY 8 HOURS IVPB 09/14/17 22:00 09/19/17 21:59 09/16/17 05:19 Promethazine HCl/ Codeine (Phenergan with Codeine) 5 ml Q6H PRN ORAL cough 09/14/17 17:15 10/14/17 17:14 Temazepam (Restoril) 15 mg HSPRN PRN ORAL Insomnia 09/14/17 21:00 09/21/17 20:59 09/16/17 00:44 Theophylline (Fausto-Dur) 100 mg EVERY 12 HOURS ORAL 09/14/17 21:00 10/14/17 20:59 09/16/17 08:21 HAYDEN FREGOSO Sep 16, 2017 11:36
[2017-09-16 12:47] VITALS: BP 136/78
[2017-09-16] MEDS ORDERED: Acetylcysteine 20% Soln 4ml HHN SCH (13:00)
[2017-09-16] MEDS ORDERED: Morphine Sulfate 2mg/ml Inj IVP PRN (15:15)
[2017-09-16] MEDS ORDERED: Promethazine/Codeine 5ml UD ORAL PRN (15:15)
[2017-09-16] MEDS ORDERED: Nitroglycerin Subl 0.4mg tab SL PRN (15:15)
[2017-09-16] MEDS ORDERED: LORazepam Inj 2mg/ml 1ml IV PRN (15:15)
--- NOTE | 2017-09-16 15:18 | Diagnostic Imaging Report ---
Indication: DYSPNEA Technique: One view of the chest Comparison: 09/14/2017 Findings: Lungs and pleural spaces are clear. Heart size is normal. There is a left chest pacemaker again demonstrated. Findings are unchanged Impression: No acute process
[2017-09-16 16:00] VITALS: BP 129/69
--- NOTE | 2017-09-16 18:45 | Cardiology Progress Note ---
Assessment/Plan Assessment/Plan 1. Chronic obstructive pulmonary disease with acute exacerbation. 2. Tobacco use disorder. 3. Permanent pacemaker implantation for bradycardia 4. episode of pain in right axillary last nite all trop neg has apparently had recent cath at another hospital reportedly neg still wheezes swallow eval reprotedly neg cxr neg Subjective Cardiovascular: Reports: chest pain - cramp right sided yest no recurrence , Denies: lightheadedness, palpitations Respiratory: Reports: cough, shortness of breath, wheezing Gastrointestinal/Abdominal: Denies: abdominal pain Genitourinary: Denies: burning Objective Last 24 Hour Vital Signs Date Time Temp Pulse Resp B/P (MAP) Pulse Ox O2 Delivery O2 Flow Rate FiO2 09/16/17 16:00 98.0 83 19 129/69 99 Nasal Cannula 09/16/17 15:39 84 24 95 Nasal Cannula 2.0 28 09/16/17 15:33 79 24 94 Nasal Cannula 2.0 28 09/16/17 13:59 83 24 95 Nasal Cannula 2.0 28 09/16/17 13:45 87 24 92 Nasal Cannula 2.0 28 09/16/17 13:45 28 09/16/17 12:47 97.2 78 24 136/78 97 09/16/17 12:00 Nasal Cannula 2.0 09/16/17 11:26 71 24 98 Nasal Cannula 2.0 28 09/16/17 11:17 86 24 95 Nasal Cannula 2.0 28 09/16/17 08:00 108 09/16/17 08:00 Nasal Cannula 2.0 09/16/17 07:29 78 20 96 Nasal Cannula 2.0 28 09/16/17 07:26 Nasal Cannula 2.0 28 09/16/17 07:22 77 20 92 Nasal Cannula 2.0 28 09/16/17 07:22 92 Nasal Cannula 2.0 28 09/16/17 04:00 72 20 97 Nasal Cannula 2.0 28 09/16/17 03:51 73 09/16/17 03:45 70 20 95 Nasal Cannula 2.0 28 09/16/17 00:10 20 94 Nasal Cannula 2.0 09/16/17 00:00 73 09/16/17 00:00 97.5 74 24 127/80 94 Nasal Cannula 2.0 09/15/17 23:51 76 20 98 Nasal Cannula 2.0 28 09/15/17 23:49 74 20 96 Nasal Cannula 2.0 28 09/15/17 20:16 98.1 82 20 118/74 96 Nasal Cannula 2.0 09/15/17 20:00 19 97 Nasal Cannula 2.0 09/15/17 20:00 83 09/15/17 19:45 78 20 99 Nasal Cannula 2.0 28 09/15/17 19:30 75 20 98 Nasal Cannula 2.0 28 09/15/17 19:30 Nasal Cannula 2.0 28 09/15/17 19:30 98 Nasal Cannula 2.0 28 General Appearance: alert Neck: no JVD Cardiovascular: normal rate, regular rhythm Respiratory/Chest: expiratory wheezing Abdomen: normal bowel sounds, non tender, soft Extremities: no swelling Intake and Output 09/16/17 09/17/17 19:00 07:00 Intake Total 27.50 ml Output Total 700 ml Balance -672.50 ml IV Total 27.50 ml Output Urine Total 700 ml # Bowel Movements 1 Laboratory Tests Test 09/16/17 06:25 White Blood Count 7.0 K/UL (4.8-10.8) Red Blood Count 6.48 M/UL (4.70-6.10) H Hemoglobin 13.8 G/DL (14.2-18.0) L Hematocrit 44.1 % (42.0-52.0) Mean Corpuscular Volume 68 FL (80-99) L Mean Corpuscular Hemoglobin 21.2 PG (27.0-31.0) L Mean Corpuscular Hemoglobin Concent 31.2 G/DL (32.0-36.0) L Red Cell Distribution Width 13.3 % (11.6-14.8) Platelet Count 225 K/UL (150-450) Mean Platelet Volume 8.0 FL (6.5-10.1) Neutrophils (%) (Auto) 31.0 % (45.0-75.0) L Lymphocytes (%) (Auto) 46.9 % (20.0-45.0) H Monocytes (%) (Auto) 6.7 % (1.0-10.0) Eosinophils (%) (Auto) 14.0 % (0.0-3.0) H Basophils (%) (Auto) 1.5 % (0.0-2.0) Sodium Level 141 MMOL/L (136-145) Potassium Level 4.0 MMOL/L (3.5-5.1) Chloride Level 105 MMOL/L (98-107) Carbon Dioxide Level 27 MMOL/L (21-32) Anion Gap 9 mmol/L (5-15) Blood Urea Nitrogen 12 mg/dL (7-18) Creatinine 1.5 MG/DL (0.55-1.30) H Estimat Glomerular Filtration Rate 49.0 mL/min (>60) Glucose Level 107 MG/DL (74-106) H Calcium Level 9.0 MG/DL (8.5-10.1) Total Bilirubin 0.6 MG/DL (0.2-1.0) Aspartate Amino Transf (AST/SGOT) 15 U/L (15-37) Alanine Aminotransferase (ALT/SGPT) 34 U/L (12-78) Alkaline Phosphatase 72 U/L (46-116) Troponin I 0.002 ng/mL (0.000-0.056) Pro-B-Type Natriuretic Peptide 16 pg/mL (0-125) Total Protein 7.0 G/DL (6.4-8.2) Albumin 3.5 G/DL (3.4-5.0) Globulin 3.5 g/dL Albumin/Globulin Ratio 1.0 (1.0-2.7) Microbiology Date/Time Source Procedure Growth Status 09/14/17 16:30 Blood Blood Culture - Preliminary NO GROWTH AFTER 24 HOURS Resulted 09/14/17 16:20 Blood Blood Culture - Preliminary NO GROWTH AFTER 24 HOURS Resulted MAHOGANY TOBIAS Sep 16, 2017 18:45
[2017-09-16 20:00] VITALS: BP 126/69
[2017-09-16] MEDS: Acetylcysteine 20% Soln 4ml HHN SCH (20:45)
[2017-09-16] MEDS: Piperacillin/Tazobactam 3.375 GM in D5W 55 ML IVPB SCH (21:05)
[2017-09-17] VITALS: BP 130/75
[2017-09-17] MEDS: Albuterol/Ipratropium 3ml neb HHN SCH ×5 (00:38→17:11)
[2017-09-17] MEDS: Acetylcysteine 20% Soln 4ml HHN SCH ×3 (00:38→14:12)
[2017-09-17 04:00] VITALS: BP 123/77
[2017-09-17] MEDS: Piperacillin/Tazobactam 3.375 GM in D5W 55 ML IVPB SCH ×2 (05:00→15:48)
[2017-09-17 06:44] LABS: BASOPHILS % (AUTO) 1.3 % (0.0-2.0); EOSINOPHILS % (AUTO) 12.4 % (0.0-3.0); LYMPHOCYTES % (AUTO) 38.2 % (20.0-45.0); MEAN CORPUSCULAR HEMOGLOBIN 21.1 PG (27.0-31.0); MEAN CORPUSCULAR HGB CONC 31.2 G/DL (32.0-36.0); MEAN CORPUSCULAR VOLUME 68 FL (80-99); MEAN PLATELET VOLUME 7.9 FL (6.5-10.1); MONOCYTES % (AUTO) 7.2 % (1.0-10.0); NEUTROPHILS % (AUTO) 40.9 % (45.0-75.0); PLATELET COUNT 213 K/UL (150-450); RED BLOOD COUNT 6.62 M/UL (4.70-6.10); RED CELL DISTRIBUTION WIDTH 12.9 % (11.6-14.8); WHITE BLOOD COUNT 7.1 K/UL (4.8-10.8)
[2017-09-17 07:13] LABS: ALANINE AMINOTRANSFERASE 36 U/L (12-78); ANION GAP 3 mmol/L (5-15); ASPARTATE AMINO TRANSFERASE 18 U/L (15-37); CALCIUM 9.1 MG/DL (8.5-10.1); CARBON DIOXIDE 30 MMOL/L (21-32); CHLORIDE 105 MMOL/L (98-107); CREATININE 1.5 MG/DL (0.55-1.30); MAGNESIUM 2.1 MG/DL (1.8-2.4); PHOSPHORUS 4.2 MG/DL (2.5-4.9); POTASSIUM 4.1 MMOL/L (3.5-5.1); SODIUM 138 MMOL/L (136-145); TOTAL PROTEIN 6.9 G/DL (6.4-8.2)
[2017-09-17 07:59] VITALS: BP 137/74
[2017-09-17] MEDS: Theophylline ER 100mg ORAL SCH (08:19)
[2017-09-17] MEDS: Heparin 5000 units/ml inj SUBQ SCH (08:26)
[2017-09-17] MEDS ORDERED: Montelukast 10mg tablet ORAL SCH (09:00)
[2017-09-17 11:15] VITALS: BP 138/75
--- NOTE | 2017-09-17 14:28 | Cardiology Report ---
APPROVED REPORT EKG Measurement Heart [id number] Normal sinus rhythm Early repolarization Normal ECG
--- NOTE | 2017-09-17 14:41 | Cardiology Progress Note ---
Assessment/Plan Assessment/Plan 1. Chronic obstructive pulmonary disease with acute exacerbation. 2. Tobacco use disorder. 3. Permanent pacemaker implantation for bradycardia 4. episode of pain in right axillary last nite all trop neg has apparently had recent cath at another hospital reportedly neg still wheezes but he feel almost back to normal swallow eval reprotedly neg cxr neg feel clsoe to baseline Subjective Cardiovascular: Denies: chest pain, lightheadedness Respiratory: Reports: cough, shortness of breath - but much better he says , wheezing Gastrointestinal/Abdominal: Denies: abdominal pain Genitourinary: Denies: burning Objective Last 24 Hour Vital Signs Date Time Temp Pulse Resp B/P (MAP) Pulse Ox O2 Delivery O2 Flow Rate FiO2 09/17/17 14:25 76 20 96 Nasal Cannula 2.0 09/17/17 14:12 83 22 94 Nasal Cannula 2.0 09/17/17 11:15 97.2 69 20 138/75 97 09/17/17 08:03 77 22 96 Nasal Cannula 2.0 09/17/17 08:00 Nasal Cannula 2.0 09/17/17 07:59 97.3 76 20 137/74 94 09/17/17 07:57 Nasal Cannula 2.0 09/17/17 07:57 85 20 92 Nasal Cannula 2.0 09/17/17 07:56 92 Nasal Cannula 2.0 09/17/17 04:00 92 Nasal Cannula 2.0 09/17/17 04:00 98.0 69 20 123/77 92 Nasal Cannula 09/17/17 03:15 71 20 96 Nasal Cannula 2.0 09/17/17 03:00 81 20 96 Nasal Cannula 2.0 09/17/17 00:00 95 Nasal Cannula 2.0 09/17/17 00:00 97.9 65 20 130/75 95 Nasal Cannula 09/16/17 23:15 72 20 97 Nasal Cannula 2.0 09/16/17 23:00 76 20 94 Nasal Cannula 2.0 09/16/17 20:00 97.9 78 20 126/69 95 Nasal Cannula 09/16/17 20:00 95 Nasal Cannula 2.0 09/16/17 19:15 86 22 96 Nasal Cannula 2.0 09/16/17 19:00 88 22 96 Nasal Cannula 2.0 09/16/17 19:00 96 Nasal Cannula 2.0 28 09/16/17 19:00 Nasal Cannula 2.0 28 09/16/17 16:00 98.0 83 19 129/69 99 Nasal Cannula 09/16/17 16:00 Nasal Cannula 2.0 09/16/17 15:39 84 24 95 Nasal Cannula 2.0 28 09/16/17 15:33 79 24 94 Nasal Cannula 2.0 28 General Appearance: no apparent distress, alert Neck: supple Cardiovascular: normal rate, regular rhythm Respiratory/Chest: expiratory wheezing Abdomen: normal bowel sounds, non tender, soft Extremities: no swelling Intake and Output 09/17/17 09/18/17 19:00 07:00 Intake Total 1010 ml Output Total 1300 ml Balance -290 ml Intake Oral 1010 ml Output Urine Total 1300 ml # Voids 6 # Bowel Movements 3 Laboratory Tests Test 09/17/17 06:10 White Blood Count 7.1 K/UL (4.8-10.8) Red Blood Count 6.62 M/UL (4.70-6.10) H Hemoglobin 14.0 G/DL (14.2-18.0) L Hematocrit 44.9 % (42.0-52.0) Mean Corpuscular Volume 68 FL (80-99) L Mean Corpuscular Hemoglobin 21.1 PG (27.0-31.0) L Mean Corpuscular Hemoglobin Concent 31.2 G/DL (32.0-36.0) L Red Cell Distribution Width 12.9 % (11.6-14.8) Platelet Count 213 K/UL (150-450) Mean Platelet Volume 7.9 FL (6.5-10.1) Neutrophils (%) (Auto) 40.9 % (45.0-75.0) L Lymphocytes (%) (Auto) 38.2 % (20.0-45.0) Monocytes (%) (Auto) 7.2 % (1.0-10.0) Eosinophils (%) (Auto) 12.4 % (0.0-3.0) H Basophils (%) (Auto) 1.3 % (0.0-2.0) Sodium Level 138 MMOL/L (136-145) Potassium Level 4.1 MMOL/L (3.5-5.1) Chloride Level 105 MMOL/L (98-107) Carbon Dioxide Level 30 MMOL/L (21-32) Anion Gap 3 mmol/L (5-15) L Blood Urea Nitrogen 15 mg/dL (7-18) Creatinine 1.5 MG/DL (0.55-1.30) H Estimat Glomerular Filtration Rate 49.0 mL/min (>60) Glucose Level 104 MG/DL (74-106) Calcium Level 9.1 MG/DL (8.5-10.1) Phosphorus Level 4.2 MG/DL (2.5-4.9) Magnesium Level 2.1 MG/DL (1.8-2.4) Total Bilirubin 0.6 MG/DL (0.2-1.0) Aspartate Amino Transf (AST/SGOT) 18 U/L (15-37) Alanine Aminotransferase (ALT/SGPT) 36 U/L (12-78) Alkaline Phosphatase 73 U/L (46-116) Total Protein 6.9 G/DL (6.4-8.2) Albumin 3.5 G/DL (3.4-5.0) Globulin 3.4 g/dL Albumin/Globulin Ratio 1.0 (1.0-2.7) Microbiology Date/Time Source Procedure Growth Status 09/14/17 16:30 Blood Blood Culture - Preliminary NO GROWTH AFTER 48 HOURS Resulted 09/14/17 16:20 Blood Blood Culture - Preliminary NO GROWTH AFTER 48 HOURS Resulted 09/16/17 11:40 Sputum Expectorated Gram Stain - Final Resulted 09/16/17 11:40 Sputum Expectorated Sputum Culture - Preliminary NO GROWTH Resulted MAHOGANY TOBIAS Sep 17, 2017 14:41
--- NOTE | 2017-09-17 15:41 | Pulmonology Progress Note ---
Assessment/Plan Problems: (1) COPD exacerbation (2) Respiratory distress (3) Pacemaker Assessment/Plan improving wants to go home taper steroids Subjective Constitutional: Reports: no symptoms HEENT: Repors: no symptoms Respiratory: Reports: no symptoms Allergies: Coded Allergies: ASPIRIN (Verified Allergy, Unknown, 02/26/17) CORTISONE (Verified Allergy, Unknown, 02/26/17) Objective Last 24 Hour Vital Signs Date Time Temp Pulse Resp B/P (MAP) Pulse Ox O2 Delivery O2 Flow Rate FiO2 09/17/17 14:25 76 20 96 Nasal Cannula 2.0 09/17/17 14:12 83 22 94 Nasal Cannula 2.0 09/17/17 11:15 97.2 69 20 138/75 97 09/17/17 08:03 77 22 96 Nasal Cannula 2.0 09/17/17 08:00 Nasal Cannula 2.0 09/17/17 07:59 97.3 76 20 137/74 94 09/17/17 07:57 Nasal Cannula 2.0 09/17/17 07:57 85 20 92 Nasal Cannula 2.0 09/17/17 07:56 92 Nasal Cannula 2.0 09/17/17 04:00 92 Nasal Cannula 2.0 09/17/17 04:00 98.0 69 20 123/77 92 Nasal Cannula 09/17/17 03:15 71 20 96 Nasal Cannula 2.0 09/17/17 03:00 81 20 96 Nasal Cannula 2.0 09/17/17 00:00 95 Nasal Cannula 2.0 09/17/17 00:00 97.9 65 20 130/75 95 Nasal Cannula 09/16/17 23:15 72 20 97 Nasal Cannula 2.0 09/16/17 23:00 76 20 94 Nasal Cannula 2.0 09/16/17 20:00 97.9 78 20 126/69 95 Nasal Cannula 09/16/17 20:00 95 Nasal Cannula 2.0 09/16/17 19:15 86 22 96 Nasal Cannula 2.0 28 09/16/17 19:00 88 22 96 Nasal Cannula 2.0 09/16/17 19:00 96 Nasal Cannula 2.0 09/16/17 19:00 Nasal Cannula 2.0 28 09/16/17 16:00 98.0 83 19 129/69 99 Nasal Cannula 09/16/17 16:00 Nasal Cannula 2.0 Intake and Output 09/17/17 09/18/17 19:00 07:00 Intake Total 1010 ml Output Total 1300 ml Balance -290 ml Intake Oral 1010 ml Output Urine Total 1300 ml # Voids 6 # Bowel Movements 3 General Appearance: WD/WN HEENT: normocephalic, atraumatic Respiratory/Chest: chest wall non-tender, normal breath sounds Cardiovascular: normal peripheral pulses, normal rate Abdomen: normal bowel sounds, soft, non tender, no organomegaly Extremities: no cyanosis Neurologic/Psychiatric: modern and contemporary art curator II-XII grossly normal, abnormal gait Lymphatic: no neck adenopathy Musculoskeletal: normal muscle bulk Microbiology Date/Time Source Procedure Growth Status 09/14/17 16:30 Blood Blood Culture - Preliminary NO GROWTH AFTER 48 HOURS Resulted 09/14/17 16:20 Blood Blood Culture - Preliminary NO GROWTH AFTER 48 HOURS Resulted 09/16/17 11:40 Sputum Expectorated Gram Stain - Final Resulted 09/16/17 11:40 Sputum Expectorated Sputum Culture - Preliminary NO GROWTH Resulted Laboratory Tests 09/17/17 06:10: White Blood Count 7.1, Red Blood Count 6.62H, Hemoglobin 14.0L, Hematocrit 44.9 , Mean Corpuscular Volume 68L, Mean Corpuscular Hemoglobin 21.1L, Mean Corpuscular Hemoglobin Concent 31.2L, Red Cell Distribution Width 12.9, Platelet Count 213, Mean Platelet Volume 7.9, Neutrophils (%) (Auto) 40.9L, Lymphocytes (%) (Auto) 38.2, Monocytes (%) (Auto) 7.2, Eosinophils (%) (Auto) 12.4H, Basophils (%) (Auto) 1.3, Sodium Level 138, Potassium Level 4.1, Chloride Level 105, Carbon Dioxide Level 30, Anion Gap 3L, Blood Urea Nitrogen 15, Creatinine 1.5H, Estimat Glomerular Filtration Rate 49.0, Glucose Level 104 , Calcium Level 9.1, Phosphorus Level 4.2, Magnesium Level 2.1, Total Bilirubin 0.6, Aspartate Amino Transf (AST/SGOT) 18, Alanine Aminotransferase (ALT/SGPT) 36, Alkaline Phosphatase 73, Total Protein 6.9, Albumin 3.5, Globulin 3.4, Albumin/Globulin Ratio 1.0 Current Medications Medications (Trade) Dose Ordered Sig/Leno Route PRN Reason Start Time Stop Time Status Last Admin Dose Admin Acetylcysteine (Mucomyst) 200 mg Q6HRT HHN 09/16/17 19:00 10/16/17 12:59 09/17/17 14:12 Albuterol/ Ipratropium (Albuterol/ Ipratropium) 3 ml Q4H PRN HHN Shortness of Breath 09/16/17 15:15 09/21/17 15:14 Albuterol/ Ipratropium (Albuterol/ Ipratropium) 3 ml Q4HRT HHN 09/16/17 19:00 09/20/17 11:29 09/17/17 14:12 Dextrose (Dextrose 50%) STAT PRN IV Hypoglycemia 09/16/17 15:15 10/14/17 15:14 Heparin Sodium (Porcine) (Heparin 5000 units/ml) 5,000 units EVERY 12 HOURS SUBQ 09/16/17 21:00 10/14/17 20:59 09/17/17 08:26 Lorazepam (Ativan 2mg/ml 1ml) 0.5 mg Q4H PRN IV For Anxiety 09/16/17 15:15 09/21/17 15:14 Montelukast Sodium (Singulair) 10 mg DAILY ORAL 09/17/17 09:00 10/15/17 08:59 09/17/17 08:19 Morphine Sulfate (Morphine Sulfate) 2 mg Q4H PRN IVP Severe Pain (Pain Scale 7-10) 09/16/17 15:15 09/21/17 15:14 Nitroglycerin (Ntg) 0.4 mg Q5M X 3 DOSES PRN SL Prn Chest Pain 09/16/17 15:15 10/14/17 17:14 Ondansetron HCl (Zofran) 4 mg Q6H PRN IVP Nausea & Vomiting 09/16/17 15:15 10/14/17 15:14 Piperacillin Sod/ Tazobactam Sod 3.375 gm/Dextrose 55 ml @ 13.75 mls/ hr EVERY 8 HOURS IVPB 09/16/17 22:00 09/19/17 21:59 09/17/17 05:00 Promethazine HCl/ Codeine (Phenergan with Codeine) 5 ml Q6H PRN ORAL cough 09/16/17 15:15 12/25/17 15:14 Temazepam (Restoril) 15 mg HSPRN PRN ORAL Insomnia 09/16/17 21:00 09/21/17 20:59 09/16/17 23:32 Theophylline (Fausto-Dur) 100 mg EVERY 12 HOURS ORAL 09/16/17 21:00 10/14/17 20:59 09/17/17 08:19 HAYDEN FREGOSO Sep 17, 2017 15:41
[2017-09-17] MEDS ORDERED: THEOPHYLLINE A100 MG ORAL (15:43)
[2017-09-17 15:54] VITALS: BP 134/78
--- NOTE | 2017-09-18 23:32 | Discharge Summary ---
Discharge Summary Hospital Course Date of Admission Sep 14, 2017 at 16:25 Date of Discharge Sep 17, 2017 at 19:08 Admitting Diagnosis COPD HPI Zenobia Pollack is a 51 year old male who was admitted on Sep 14, 2017 at 16:25 for Chronic Obstructive Pulmonary Disease Hospital Course [id number] Discharge Discharge Disposition Patient was discharged to Home (01) Discharge Diagnoses: Kinag Diamond NP Sep 18, 2017 23:32
--- NOTE | 2017-09-19 06:01 | Discharge Summary 2 SIG ---
DATE OF ADMISSION: 09/14/2017 DATE OF DISCHARGE: 09/17/2017 PERL SOFTWARE ENGINEER: Omid Archer M.D. BRIEF HOSPITAL COURSE: The patient is a 51-year-old male with history of pacemaker, COPD, and is a smoker, who presented to ED complaining of shortness of breath and coughing associated with wheezing since a day prior to admission. Cough was productive with yellowish phlegm. There were no aggravating factors. The patient has history of COPD. On evaluation at ED, laboratories showed no leukocytosis. Troponin was negative. Hemoglobin and hematocrit were stable. Chest x-ray done showed hyperinflated lungs with no infiltrates, with positive pacemaker. He was started on IV antibiotics and was admitted to telemetry for acute exacerbation of COPD. He was started on IV antibiotics, Zosyn and was given nebulizer treatments. He was placed on theophylline 100 mg q.12 hours. He underwent cardiac evaluation for shortness of breath. EKG showed sinus rhythm with normal QRS axis and no ST or T-wave abnormalities of any significant degree. Cardiac monitors were monitored and was negative. He apparently had a recent catheterization done at another hospital and reportedly was negative. He was counseled against smoking. Blood culture did not isolate any growth. Sputum culture showed growth of yeast and upper respiratory renee. He was eventually discharged home. FINAL DIAGNOSES: 1. Acute chronic obstructive pulmonary disease exacerbation. 2. Respiratory distress. 3. Pacemaker. 4. Tobacco use disorder. 5. Right axillary pain. DISPOSITION: The patient was discharged home. DISCHARGE MEDICATIONS: Refer to medication list. Continue with theophylline 100 mg q.12 hours. FOLLOWUP: Follow up with PMD in a week. Nimesh Sanchez M.D. I have been assigned to dictate discharge summary on this account and I was not involved in the patient's management. Kinga Diamond N.P. DR: Jabari JOB#: [id number] CC: MILLIE
== END 2017-09-17 19:08 | disposition home or self-care (01) | DRG 140 ==
LOC: EMR 15:50 → 2E 16:25 → EDBEDREQ 16:36 → 2E 09-15 09:00 → 3E 09-16 15:04
DX: J44.1 Chronic obstructive pulmonary disease with (acute) exacerbation (principal); M79.621 Pain in right upper arm; Z72.0 Tobacco use; Z95.0 Presence of cardiac pacemaker
CPT/HCPCS: 36415; 71010; 74230; 80053; 81003; 82550; 82553; 83605; 83735; 83880; 84100; 84484; 85025; 87040; 87070; 87205; 93005; 94640; 94664; 94760; 99285; J7620

== ENCOUNTER 2018-04-26 15:11 | Emergency (ER) | payer MEDICAID ==
[~2018-04-26] VITALS: Ht 188 cm; Wt 88.5 kg
[~2018-04-26 15:11] MED LIST changes: +CLARITIN10 M2 ORAL; +MONTELUKAST SOD10 MG ORAL; +THEOPHYLLINE A100 MG ORAL
[2018-04-26] MEDS ORDERED: Ipratropium 0.02% Inh Soln 2.5ml UD HHN ONE (15:30)
[2018-04-26] MEDS: Albuterol ud Inhalation HHN SCH ×3 (15:40→15:49)
[2018-04-26 15:52] LABS: BASOPHILS % (AUTO) 1.1 % (0.0-2.0); EOSINOPHILS % (AUTO) 8.8 % (0.0-3.0); HEMATOCRIT 46.4 % (42.0-52.0); HEMOGLOBIN 13.8 G/DL (14.2-18.0); LYMPHOCYTES % (AUTO) 39.9 % (20.0-45.0); MEAN CORPUSCULAR VOLUME 68 FL (80-99); NEUTROPHILS % (AUTO) 43.3 % (45.0-75.0); PLATELET COUNT 242 K/UL (150-450); RED BLOOD COUNT 6.87 M/UL (4.70-6.10); RED CELL DISTRIBUTION WIDTH 12.9 % (11.6-14.8); WHITE BLOOD COUNT 9.3 K/UL (4.8-10.8)
[2018-04-26 15:54] VITALS: BP 142/73
--- NOTE | 2018-04-26 16:06 | Diagnostic Imaging Report ---
EXAM: XR Chest, 1 View CLINICAL HISTORY: Shortness of breath TECHNIQUE: Frontal view of the chest. COMPARISON: Chest x-ray dated 09/16/17 FINDINGS: Lungs: Unremarkable. The lungs appear clear. No confluent pulmonary opacities. Pleural space: Unremarkable. No pneumothorax. Heart: Unremarkable. No cardiomegaly. Mediastinum: Unremarkable. Bones/joints: Unremarkable. Vasculature: Atherosclerotic calcifications are noted within the aortic arch. Tubes, lines and devices: Stable positioning of a left-sided cardiac pacer with lead tips in the region of the right atrium and right ventricle. EKG leads overlie the thorax. IMPRESSION: No acute findings.
[2018-04-26 16:27] LABS: ANION GAP 10 mmol/L (5-15); BLOOD UREA NITROGEN 13 mg/dL (7-18); CALCIUM 8.7 MG/DL (8.5-10.1); CARBON DIOXIDE 28 MMOL/L (21-32); CHLORIDE 103 MMOL/L (98-107); CREATININE 1.4 MG/DL (0.55-1.30); POTASSIUM 4.2 MMOL/L (3.5-5.1); SODIUM 141 MMOL/L (136-145)
[2018-04-26 16:40] LABS: ALANINE AMINOTRANSFERASE 35 U/L (12-78); ALBUMIN 4.1 G/DL (3.4-5.0); ALBUMIN/GLOBULIN RATIO 1.1 (1.0-2.7); ALKALINE PHOSPHATASE 87 U/L (46-116); ASPARTATE AMINO TRANSFERASE 21 U/L (15-37); BILIRUBIN,TOTAL 0.2 MG/DL (0.2-1.0); CKMB 2.8 NG/ML (0.0-3.6); CREATINE KINASE 475 U/L (26-308)
[2018-04-26] MEDS ORDERED: Solu-MEDROL 125mg Inj IVP ONE (17:00)
--- NOTE | 2018-04-26 17:09 | Emergency Room Report ---
History of Present Illness General Chief Complaint: Dyspnea/Respdistress Source: Patient Present Illness HPI Patient 52-year-old male presents after increased difficulty breathing. Patient gradual onset of symptoms. Patient is a smoker still. The patient was having prior history of COPD and takes multiple inhalers. He reports having a nonproductive cough. He reports having increased difficulty breathing for the past few days. The patient denies any vomiting. He denies any fever. Patient states that he had been compliant with his medications. He had previously been on steroid tapers. Allergies: Coded Allergies: ASPIRIN (Verified Allergy, Unknown, 02/26/17) CORTISONE (Verified Allergy, Unknown, 02/26/17) Patient History Past Medical History: see triage record Reviewed Nursing Documentation: PMH: Agreed; PSxH: Agreed Nursing Documentation-PMH Past Medical History: No History, Except For Hx Cardiac Problems: Yes Hx Pacemaker: Yes - Left Chest Pacemaker Hx Asthma: Yes Hx COPD: Yes - COPD Hx Cancer: No Hx Gastrointestinal Problems: Yes Hx Neurological Problems: No Hx Neurologic Surgery: No Hx Brain Shunt: No Review of Systems All Other Systems: limited - by e Physical Exam Vital Signs Date Time Temp Pulse Resp B/P (MAP) Pulse Ox O2 Delivery O2 Flow Rate FiO2 04/26/18 15:23 98.3 87 22 167/76 99 Nasal Cannula 2.0 98.2 04/26/18 15:34 28 General Appearance: moderate distress, Chronically Ill ENT: hearing grossly normal, normal pharynx Neck: full range of motion, supple Respiratory: wheezing, expiration Cardiovascular #1: normal peripheral pulses, regular rate, rhythm Gastrointestinal: normal inspection, normal bowel sounds, non tender Neurologic: normal inspection, alert, oriented x3, responsive, ham clerk III-XII nml as tested, motor strength/tone normal Skin: normal inspection, normal color, no rash Medical Decision Making Diagnostic Impression: Primary Impression: COPD exacerbation ER Course Patient is a 52-year-old male who presented for an for increased soreness of breath.Differential included but was not limited to anemia, pneumonia, pneumothorax, myocardial infarction, pericardial effusion, congestive heart failure, acidosis. Because of complexity of patient's case laboratory testing and imaging studies were ordered. Chest x-ray one view read by radiologist no evidence of acute infiltrate or cardiomegaly. The patient was given IV steroids as well as IV magnesium as well as multiple breathing treatments with continued shortness of breath. The patient was noted to have some improvement. The patient was discussed with Dr. Jeanmarie Mercedes for [facility]. Labs Test 04/26/18 15:30 White Blood Count 9.3 K/UL (4.8-10.8) Red Blood Count 6.87 M/UL (4.70-6.10) Hemoglobin 13.8 G/DL (14.2-18.0) Hematocrit 46.4 % (42.0-52.0) Mean Corpuscular Volume 68 FL (80-99) Mean Corpuscular Hemoglobin 20.1 PG (27.0-31.0) Mean Corpuscular Hemoglobin Concent 29.8 G/DL (32.0-36.0) Red Cell Distribution Width 12.9 % (11.6-14.8) Platelet Count 242 K/UL (150-450) Mean Platelet Volume 8.9 FL (6.5-10.1) Neutrophils (%) (Auto) 43.3 % (45.0-75.0) Lymphocytes (%) (Auto) 39.9 % (20.0-45.0) Monocytes (%) (Auto) 7.0 % (1.0-10.0) Eosinophils (%) (Auto) 8.8 % (0.0-3.0) Basophils (%) (Auto) 1.1 % (0.0-2.0) Sodium Level 141 MMOL/L (136-145) Potassium Level 4.2 MMOL/L (3.5-5.1) Chloride Level 103 MMOL/L (98-107) Carbon Dioxide Level 28 MMOL/L (21-32) Anion Gap 10 mmol/L (5-15) Blood Urea Nitrogen 13 mg/dL (7-18) Creatinine 1.4 MG/DL (0.55-1.30) Estimat Glomerular Filtration Rate 52.8 mL/min (>60) Glucose Level 121 MG/DL (74-106) Calcium Level 8.7 MG/DL (8.5-10.1) Total Bilirubin 0.2 MG/DL (0.2-1.0) Aspartate Amino Transf (AST/SGOT) 21 U/L (15-37) Alanine Aminotransferase (ALT/SGPT) 35 U/L (12-78) Alkaline Phosphatase 87 U/L (46-116) Total Creatine Kinase 475 U/L (26-308) Creatine Kinase MB 2.8 NG/ML (0.0-3.6) Creatine Kinase MB Relative Index 0.5 Troponin I 0.000 ng/mL (0.000-0.056) Pro-B-Type Natriuretic Peptide 91 pg/mL (0-125) Total Protein 7.9 G/DL (6.4-8.2) Albumin 4.1 G/DL (3.4-5.0) Globulin 3.8 g/dL Albumin/Globulin Ratio 1.1 (1.0-2.7) EKG Diagnostic Results Rate: normal - 82 Rhythm: NSR ST Segments: no acute changes Last Vital Signs Date Time Temp Pulse Resp B/P (MAP) Pulse Ox O2 Delivery O2 Flow Rate FiO2 04/26/18 15:59 77 19 99 Nasal Cannula 2.0 28 04/26/18 15:54 98.2 142/73 98.2 Status: improved Disposition: HOME, SELF-CARE Condition: Stable Referrals: [facility]ERR[facility] (PCP) Cordell Eric MD Apr 26, 2018 17:09
[2018-04-26] MEDS ORDERED: Albuterol/Ipratropium 3ml neb HHN ONE (17:15)
[2018-04-26 19:00] VITALS: BP 136/65
[2018-04-26 19:13] VITALS: BP 130/66
[2018-04-26 21:30] VITALS: BP 127/70
[2018-04-26] MEDS ORDERED: Albuterol ud Inhalation HHN ONE (23:30)
[2018-04-27 00:40] VITALS: BP 50/70
[2018-04-27 00:41] VITALS: BP 50/70
== END 2018-04-27 00:56 | disposition home or self-care (01) ==
LOC: EMR 15:45
DX: J44.1 Chronic obstructive pulmonary disease with (acute) exacerbation (principal); Z88.6 Allergy status to analgesic agent; Z88.8 Allergy status to other drugs, medicaments and biological substances; Z95.0 Presence of cardiac pacemaker
CPT/HCPCS: 36415; 71045; 80053; 82550; 82553; 83880; 84484; 85025; 94640; 94664; 94760; 96365; 96374; 99283; J2930; J7620

== ENCOUNTER 2018-05-20 16:30 | Inpatient (IN) | payer MEDICAID ==
[~2018-05-20] VITALS: Ht 190.5 cm; Wt 97.6 kg
[2018-05-20 16:44] VITALS: BP 141/77
[2018-05-20] MEDS ORDERED: Ipratropium 0.02% Inh Soln 2.5ml UD HHN ONE (17:00)
[2018-05-20 17:11] LABS: BASOPHILS % (AUTO) 1.4 % (0.0-2.0); EOSINOPHILS % (AUTO) 11.7 % (0.0-3.0); HEMATOCRIT 46.9 % (42.0-52.0); HEMOGLOBIN 14.5 G/DL (14.2-18.0); LYMPHOCYTES % (AUTO) 39.3 % (20.0-45.0); MEAN CORPUSCULAR VOLUME 68 FL (80-99); MONOCYTES % (AUTO) 7.5 % (1.0-10.0); NEUTROPHILS % (AUTO) 40.1 % (45.0-75.0); PLATELET COUNT 250 K/UL (150-450); RED BLOOD COUNT 6.94 M/UL (4.70-6.10); RED CELL DISTRIBUTION WIDTH 13.2 % (11.6-14.8); WHITE BLOOD COUNT 7.4 K/UL (4.8-10.8)
[2018-05-20] MEDS: Albuterol ud Inhalation HHN SCH ×3 (17:15→17:29)
--- NOTE | 2018-05-20 17:26 | Emergency Room Report ---
History of Present Illness General Chief Complaint: Dyspnea/Respdistress Source: Patient Present Illness HPI Patient reports significant history of COPD Reports that he has been attempting to improve at home for the past 2 days However with increased cough and congestion and shortness of breath With the lack of any improvement with medications at home he presents to the ER Denies any vomiting or diarrhea Denies any dysuria or frequency Denies any recent travel Allergies: Coded Allergies: ASPIRIN (Verified Allergy, Unknown, 02/26/17) CORTISONE (Verified Allergy, Unknown, 02/26/17) PEPPER (GENUS CAPSICUM) (Verified Allergy, Unknown, Shortness of Breath, ) Patient History Past Medical History: see triage record Pertinent Family History: none Reviewed Nursing Documentation: PMH: Agreed; PSxH: Agreed Nursing Documentation-PMH Hx Cardiac Problems: Yes Hx Pacemaker: Yes - Left Chest Pacemaker Hx Asthma: Yes Hx COPD: Yes - COPD Hx Cancer: No Hx Gastrointestinal Problems: Yes Hx Neurological Problems: No Hx Neurologic Surgery: No Hx Brain Shunt: No Review of Systems All Other Systems: negative except mentioned in HPI Physical Exam Vital Signs Date Time Temp Pulse Resp B/P (MAP) Pulse Ox O2 Delivery O2 Flow Rate FiO2 05/20/18 16:36 97.8 109 27 155/84 97 Nasal Cannula 2.0 97.9 05/20/18 17:00 28 Sp02 EP Interpretation: reviewed, normal General Appearance: mild distress - Appears short of breath Head: normocephalic, atraumatic Eyes: bilateral eye PERRL, bilateral eye EOMI ENT: hearing grossly normal, normal pharynx, TMs + canals normal, uvula midline Neck: full range of motion, supple, no meningismus, no bony tend Respiratory: no retraction, respiratory distress - With mild retractions are noted, diffuse wheezing and crackles Cardiovascular #1: regular rate, rhythm, no edema, no gallop, no murmur, tachycardia Gastrointestinal: normal bowel sounds, non tender, soft, no mass, no organomegaly, non-distended, no guarding, no hernia, no pulsatile mass, no rebound Genitourinary: no CVA tenderness Musculoskeletal: normal inspection Neurologic: oriented x3, responsive, resourcing consultant III-XII nml as tested, motor strength/ tone normal, sensory intact Psychiatric: mood/affect normal Skin: normal color, no rash, warm/dry, palpation normal Lymphatic: normal inspection, no adenopathy Procedures Critical Care Time Critical Care Time 40 minutes for multiple re-evaluations initial critical presentation Respiratory concerns Not including any procedural time Medical Decision Making Diagnostic Impression: Primary Impression: COPD (chronic obstructive pulmonary disease) Additional Impressions: Dyspnea Respiratory distress ER Course Patient is a fairly complex patient with multiple differential to consideration including but not limited to cardiac cardiopulmonary and vascular emergencies Patient initially required acute intervention with breathing treatments Patient appears to be allergic to possibly steroids therefore magnesium was given Patient was attempted on BiPAP however is not able to tolerate that very well ABG is somewhat reassuring as well patient admitted to higher level of care for continued care in critical condition Labs Test 05/20/18 16:30 05/20/18 18:06 05/21/18 03:27 White Blood Count 7.4 K/UL (4.8-10.8) 8.6 K/UL (4.8-10.8) Red Blood Count 6.94 M/UL (4.70-6.10) 6.78 M/UL (4.70-6.10) Hemoglobin 14.5 G/DL (14.2-18.0) 14.2 G/DL (14.2-18.0) Hematocrit 46.9 % (42.0-52.0) 45.9 % (42.0-52.0) Mean Corpuscular Volume 68 FL (80-99) 68 FL (80-99) Mean Corpuscular Hemoglobin 20.9 PG (27.0-31.0) 20.9 PG (27.0-31.0) Mean Corpuscular Hemoglobin Concent 30.9 G/DL (32.0-36.0) 30.9 G/DL (32.0-36.0) Red Cell Distribution Width 13.2 % (11.6-14.8) 12.8 % (11.6-14.8) Platelet Count 250 K/UL (150-450) 239 K/UL (150-450) Mean Platelet Volume 7.8 FL (6.5-10.1) 8.4 FL (6.5-10.1) Neutrophils (%) (Auto) 40.1 % (45.0-75.0) 51.8 % (45.0-75.0) Lymphocytes (%) (Auto) 39.3 % (20.0-45.0) 30.7 % (20.0-45.0) Monocytes (%) (Auto) 7.5 % (1.0-10.0) 7.0 % (1.0-10.0) Eosinophils (%) (Auto) 11.7 % (0.0-3.0) 9.6 % (0.0-3.0) Basophils (%) (Auto) 1.4 % (0.0-2.0) 1.0 % (0.0-2.0) Sodium Level 143 MMOL/L (136-145) 143 MMOL/L (136-145) Potassium Level 4.1 MMOL/L (3.5-5.1) 3.9 MMOL/L (3.5-5.1) Chloride Level 104 MMOL/L (98-107) 104 MMOL/L (98-107) Carbon Dioxide Level 29 MMOL/L (21-32) 30 MMOL/L (21-32) Anion Gap 11 mmol/L (5-15) 9 mmol/L (5-15) Blood Urea Nitrogen 18 mg/dL (7-18) 19 mg/dL (7-18) Creatinine 1.5 MG/DL (0.55-1.30) 1.5 MG/DL (0.55-1.30) Estimat Glomerular Filtration Rate 48.8 mL/min (>60) 48.8 mL/min (>60) Glucose Level 128 MG/DL (74-106) 96 MG/DL (74-106) Calcium Level 9.4 MG/DL (8.5-10.1) 9.2 MG/DL (8.5-10.1) Total Bilirubin 0.8 MG/DL (0.2-1.0) Aspartate Amino Transf (AST/SGOT) 25 U/L (15-37) Alanine Aminotransferase (ALT/SGPT) 53 U/L (12-78) Alkaline Phosphatase 88 U/L (46-116) Total Creatine Kinase 133 U/L (26-308) Creatine Kinase MB 2.2 NG/ML (0.0-3.6) Creatine Kinase MB Relative Index 1.6 Troponin I 0.000 ng/mL (0.000-0.056) Pro-B-Type Natriuretic Peptide 30 pg/mL (0-125) Total Protein 8.2 G/DL (6.4-8.2) Albumin 4.3 G/DL (3.4-5.0) Globulin 3.9 g/dL Albumin/Globulin Ratio 1.1 (1.0-2.7) Lipase 170 U/L (73-393) Arterial Blood pH 7.430 (7.350-7.450) Arterial Blood Partial Pressure CO2 50.8 mmHg (35.0-45.0) Arterial Blood Partial Pressure O2 79.4 mmHg (75.0-100.0) Arterial Blood HCO3 27.0 mmol/L (22.0-26.0) Arterial Blood Oxygen Saturation 94.7 % (92.0-98.0) Arterial Blood Base Excess 0.4 Dani Test Positive Rhythm Strip Diag. Results EP Interpretation: yes Rate: 110 Rhythm: no PVC's, no ectopy, other - Sinus tach Chest X-Ray Diagnostic Results Chest X-Ray Diagnostic Results : Chest X-Ray Ordered: Yes # of Views/Limited/Complete: 1 View Indication: Shortness of Breath EP Interpretation: Yes Interpretation: no consolidation, no effusion, no pneumothorax Impression: No acute disease Electronically Signed by: Lee Franco DO Last Vital Signs Date Time Temp Pulse Resp B/P (MAP) Pulse Ox O2 Delivery O2 Flow Rate FiO2 05/20/18 17:00 90 20 Nasal Cannula 2.0 28 05/20/18 17:00 99 05/20/18 16:44 141/77 05/20/18 16:36 97.8 97.9 Status: improved Disposition: ADMITTED INPATIENT Condition: Critical Referrals: [facility] (PCP) Lee Franco DO May 20, 2018 17:26
[2018-05-20 17:31] LABS: ANION GAP 11 mmol/L (5-15); BLOOD UREA NITROGEN 18 mg/dL (7-18); CALCIUM 9.4 MG/DL (8.5-10.1); CARBON DIOXIDE 29 MMOL/L (21-32); CHLORIDE 104 MMOL/L (98-107); CREATININE 1.5 MG/DL (0.55-1.30); POTASSIUM 4.1 MMOL/L (3.5-5.1); SODIUM 143 MMOL/L (136-145)
[2018-05-20 17:49] LABS: ALANINE AMINOTRANSFERASE 53 U/L (12-78); ALBUMIN 4.3 G/DL (3.4-5.0); ALBUMIN/GLOBULIN RATIO 1.1 (1.0-2.7); ALKALINE PHOSPHATASE 88 U/L (46-116); ASPARTATE AMINO TRANSFERASE 25 U/L (15-37); BILIRUBIN,TOTAL 0.8 MG/DL (0.2-1.0); CKMB 2.2 NG/ML (0.0-3.6); CREATINE KINASE 133 U/L (26-308)
[2018-05-20] MEDS ORDERED: PROAIR HFA8.5 GM INH (18:36)
[2018-05-20] MEDS ORDERED: ATROVENT HFA12.9 GM IH (18:38)
[2018-05-20] MEDS ORDERED: ADVAIR 500-501 EACH INH (18:40)
[2018-05-20 19:32] VITALS: BP 139/96
[2018-05-20 20:30] VITALS: BP 157/104
[2018-05-20] MEDS ORDERED: THEOPHYLLINE A100 MG ORAL (20:43)
[2018-05-20] MEDS ORDERED: Albuterol 90mcg Inhaler 8gm INH PRN (22:45)
[2018-05-20] MEDS: Albuterol/Ipratropium 3ml neb HHN SCH ×2 (23:15→23:40)
[2018-05-20] MEDS ORDERED: Albuterol/Ipratropium 3ml neb HHN PRN (23:15)
[2018-05-21] VITALS: BP 111/76
[2018-05-21 04:00] VITALS: BP 120/82
[2018-05-21 05:18] LABS: EOSINOPHILS % (AUTO) 9.6 % (0.0-3.0); HEMATOCRIT 45.9 % (42.0-52.0); HEMOGLOBIN 14.2 G/DL (14.2-18.0); LYMPHOCYTES % (AUTO) 30.7 % (20.0-45.0); MEAN CORPUSCULAR VOLUME 68 FL (80-99); NEUTROPHILS % (AUTO) 51.8 % (45.0-75.0); PLATELET COUNT 239 K/UL (150-450); RED BLOOD COUNT 6.78 M/UL (4.70-6.10); RED CELL DISTRIBUTION WIDTH 12.8 % (11.6-14.8); WHITE BLOOD COUNT 8.6 K/UL (4.8-10.8)
[2018-05-21 05:37] LABS: ANION GAP 9 mmol/L (5-15); BLOOD UREA NITROGEN 19 mg/dL (7-18); CALCIUM 9.2 MG/DL (8.5-10.1); CARBON DIOXIDE 30 MMOL/L (21-32); CHLORIDE 104 MMOL/L (98-107); CREATININE 1.5 MG/DL (0.55-1.30); POTASSIUM 3.9 MMOL/L (3.5-5.1); SODIUM 143 MMOL/L (136-145)
--- NOTE | 2018-05-21 07:50 | Cardiology Progress Note ---
Assessment/Plan Assessment/Plan The patient is seen and examined, full consult note will be dictated shortly. Objective Last 24 Hour Vital Signs Date Time Temp Pulse Resp B/P (MAP) Pulse Ox O2 Delivery O2 Flow Rate FiO2 05/21/18 04:00 74 05/21/18 04:00 Nasal Cannula 2.0 05/21/18 04:00 97.5 80 20 120/82 (95) 100 97.5 05/21/18 00:03 99 Nasal Cannula 2.0 98 05/21/18 00:03 Nasal Cannula 2.0 28 05/21/18 00:00 93 05/21/18 00:00 97.8 20 111/76 (88) 100 97.8 05/21/18 00:00 Nasal Cannula 2.0 05/20/18 23:47 86 22 99 Nasal Cannula 2.0 28 05/20/18 23:42 92 20 98 Nasal Cannula 2.0 28 05/20/18 23:42 28 05/20/18 20:30 Nasal Cannula 3.0 05/20/18 20:30 97.7 24 157/104 (121) 99 97.7 05/20/18 20:30 Nasal Cannula 2.0 05/20/18 20:17 94 05/20/18 19:47 97.5 78 25 139/96 100 Nasal Cannula 2.0 28 97.5 05/20/18 19:32 97.5 78 25 139/96 100 Nasal Cannula 2.0 97.5 05/20/18 17:48 90 16 99 Nasal Cannula 2.0 28 05/20/18 17:00 90 20 Nasal Cannula 2.0 28 05/20/18 17:00 90 20 99 Nasal Cannula 2.0 28 05/20/18 17:00 28 05/20/18 16:44 99 24 141/77 97 Nasal Cannula 2.0 05/20/18 16:44 109 27 Nasal Cannula 2.0 05/20/18 16:36 97.8 109 27 155/84 97 Nasal Cannula 2.0 97.9 Intake and Output 05/20/18 05/21/18 19:00 07:00 Intake Total 480 ml Balance 480 ml Intake IV Total 480 ml Laboratory Tests Test 05/20/18 16:30 05/20/18 18:06 05/21/18 03:27 White Blood Count 7.4 K/UL (4.8-10.8) 8.6 K/UL (4.8-10.8) Red Blood Count 6.94 M/UL (4.70-6.10) H 6.78 M/UL (4.70-6.10) H Hemoglobin 14.5 G/DL (14.2-18.0) 14.2 G/DL (14.2-18.0) Hematocrit 46.9 % (42.0-52.0) 45.9 % (42.0-52.0) Mean Corpuscular Volume 68 FL (80-99) L 68 FL (80-99) L Mean Corpuscular Hemoglobin 20.9 PG (27.0-31.0) L 20.9 PG (27.0-31.0) L Mean Corpuscular Hemoglobin Concent 30.9 G/DL (32.0-36.0) L 30.9 G/DL (32.0-36.0) L Red Cell Distribution Width 13.2 % (11.6-14.8) 12.8 % (11.6-14.8) Platelet Count 250 K/UL (150-450) 239 K/UL (150-450) Mean Platelet Volume 7.8 FL (6.5-10.1) 8.4 FL (6.5-10.1) Neutrophils (%) (Auto) 40.1 % (45.0-75.0) L 51.8 % (45.0-75.0) Lymphocytes (%) (Auto) 39.3 % (20.0-45.0) 30.7 % (20.0-45.0) Monocytes (%) (Auto) 7.5 % (1.0-10.0) 7.0 % (1.0-10.0) Eosinophils (%) (Auto) 11.7 % (0.0-3.0) H 9.6 % (0.0-3.0) H Basophils (%) (Auto) 1.4 % (0.0-2.0) 1.0 % (0.0-2.0) Sodium Level 143 MMOL/L (136-145) 143 MMOL/L (136-145) Potassium Level 4.1 MMOL/L (3.5-5.1) 3.9 MMOL/L (3.5-5.1) Chloride Level 104 MMOL/L (98-107) 104 MMOL/L (98-107) Carbon Dioxide Level 29 MMOL/L (21-32) 30 MMOL/L (21-32) Anion Gap 11 mmol/L (5-15) 9 mmol/L (5-15) Blood Urea Nitrogen 18 mg/dL (7-18) 19 mg/dL (7-18) H Creatinine 1.5 MG/DL (0.55-1.30) H 1.5 MG/DL (0.55-1.30) H Estimat Glomerular Filtration Rate 48.8 mL/min (>60) 48.8 mL/min (>60) Glucose Level 128 MG/DL (74-106) H 96 MG/DL (74-106) Calcium Level 9.4 MG/DL (8.5-10.1) 9.2 MG/DL (8.5-10.1) Total Bilirubin 0.8 MG/DL (0.2-1.0) Aspartate Amino Transf (AST/SGOT) 25 U/L (15-37) Alanine Aminotransferase (ALT/SGPT) 53 U/L (12-78) Alkaline Phosphatase 88 U/L (46-116) Total Creatine Kinase 133 U/L (26-308) Creatine Kinase MB 2.2 NG/ML (0.0-3.6) Creatine Kinase MB Relative Index 1.6 Troponin I 0.000 ng/mL (0.000-0.056) Pro-B-Type Natriuretic Peptide 30 pg/mL (0-125) Total Protein 8.2 G/DL (6.4-8.2) Albumin 4.3 G/DL (3.4-5.0) Globulin 3.9 g/dL Albumin/Globulin Ratio 1.1 (1.0-2.7) Lipase 170 U/L (73-393) Arterial Blood pH 7.430 (7.350-7.450) Arterial Blood Partial Pressure CO2 50.8 mmHg (35.0-45.0) H Arterial Blood Partial Pressure O2 79.4 mmHg (75.0-100.0) Arterial Blood HCO3 27.0 mmol/L (22.0-26.0) H Arterial Blood Oxygen Saturation 94.7 % (92.0-98.0) Arterial Blood Base Excess 0.4 Dani Test Positive Sai Zavaleta MD May 21, 2018 07:50
[2018-05-21 08:00] VITALS: BP 135/77
[2018-05-21] MEDS: Albuterol/Ipratropium 3ml neb HHN SCH ×3 (08:08→20:00)
--- NOTE | 2018-05-21 08:18 | Diagnostic Imaging Report ---
Indication: Chest pain Technique: One view of the chest Comparison: 04/26/2018 Findings: Lungs and pleural spaces are clear. Heart size is normal. There is a left chest bifocal pacemaker. No significant interim change Impression: No acute process
[2018-05-21] MEDS ORDERED: Albuterol 90mcg Inhaler 8gm INH PRN (09:00)
--- NOTE | 2018-05-21 09:02 | Consultation ---
Consult Note Assessment/Plan DICT # [id number] Ernie Boyd MD May 21, 2018 09:02
[2018-05-21] MEDS: Montelukast 10mg tablet ORAL SCH (09:22)
[2018-05-21] MEDS: Theophylline ER 100mg ORAL SCH ×2 (09:22→18:15)
[2018-05-21] MEDS ORDERED: Azithromycin 250mg tab ORAL SCH (10:00)
[2018-05-21] MEDS ORDERED: DiphenhydrAMINE & Zinc 28g Cream TOPIC PRN (10:30)
--- NOTE | 2018-05-21 11:15 | Consultation ---
DATE OF CONSULTATION: 05/21/2018 CARDIOLOGY CONSULTATION CONSULTING PHYSICIAN: Sai Zavaleta M.D. REFERRING PHYSICIAN: Lee Thomas M.D. REASON FOR CONSULTATION: Management of shortness of breath. HISTORY OF PRESENT ILLNESS: The patient is a very pleasant 52-year-old gentleman, who presents to the hospital with complaints of shortness of breath, which did not respond to usual albuterol nebulizer therapy at home. The patient tried to manage this at home for the past couple of days. He has complaints of productive cough and congestion associated with shortness of breath. At the time of arrival to the emergency department, blood pressure was 155/84 and pulse of 109. He was admitted to [facility] for further evaluation and management of acute exacerbation of asthma/COPD. Chest x-ray in the emergency department showed dual-chamber pacemaker with no evidence of pulmonary edema or infiltration. Apparently, he is allergic to cortisone, which has caused rash in the past. At the bedside, he continues to wheeze and having trouble with breathing and use of accessory muscle of breathing. PAST MEDICAL HISTORY: 1. COPD/asthma. 2. Bradyarrhythmia, status post dual-chamber pacemaker implantation. 3. Gastroesophageal reflux disease. ALLERGIES: To aspirin, cortisone, and pepper. FAMILY HISTORY: No premature coronary artery disease or arrhythmogenic in the first-degree relatives. LIST OF MEDICATIONS: 1. Albuterol HFA two puffs inhaler q. 6 hours p.r.n. shortness of breath. 2. Advair 500/50 Diskus one puff inhaler daily. 3. Atrovent two puffs inhaler q.12 hours. 4. Montelukast 10 mg p.o. daily. 5. Fausto-Dur 200 mg twice a day. REVIEW OF SYSTEMS: A 12-system review done essentially negative except what mentioned in the history of present illness. PAST SURGICAL HISTORY: None. PHYSICAL EXAMINATION: VITAL SIGNS: Blood pressure at time of arrival to the hospital 155/84, respirations 37, pulse of 109, temperature 97.9 degrees Fahrenheit, and O2 saturation 97% on nasal cannula 2 liters of oxygen. GENERAL: The patient is a very pleasant 52-year-old gentleman, in no apparent respiratory distress. Alert and oriented x4, in mild respiratory distress. Use of accessory muscle of respiration. HEENT: Atraumatic and normocephalic. Anicteric. Pupils are equal, round, and reactive to light and accommodation. Extraocular muscles are intact. NECK: JVP less than 5 cm. No carotid bruit. Carotid upstrokes 2+ bilaterally. CARDIOVASCULAR: Normal S1, S2. Regular rate and rhythm. No murmurs, gallops, or rubs. PMI is at fourth intercostal space at the midclavicular line. LUNGS: Diminished breath sounds with expiratory rhonchi and prolonged expiratory phase. ABDOMEN: Soft, nontender, and nondistended. No hepatosplenomegaly. Positive bowel sounds. EXTREMITIES: No evidence of edema, clubbing, or cyanosis. LABORATORY FINDINGS: WBC 7.4, hemoglobin 14.5, hematocrit of 46.9, and platelet count is 250. Sodium 143, potassium is 4.1, chloride 104, bicarbonate 29, BUN of 18, creatinine 1.5, glucose is 128, calcium is 9.4. ProBNP was 30. Troponin I was 0. Blood gas, pH is 7.4, pCO2 of 50.8, pO2 79.4, bicarbonate 27.0, and O2 saturation 97.4. ASSESSMENT AND PLAN: The patient is a very pleasant 52-year-old gentleman, who presents to the hospital with shortness of breath. 1. Shortness of breath most likely acute exacerbation of COPD. The patient most likely benefit from the steroid. However, Cardizem is listed as one of the medication that he has developed allergic reaction to. Discussed with Dr. Boyd, to determine if the steroid use is still prohibited. Given the above, the allergic reaction is mainly a side effect towards steroid in the past and not necessary allergic reaction. 2. The patient will continue to be on IV fluid as well as breathing treatment per Dr. Boyd. 3. From the cardiac standpoint, we would like to obtain 2D echocardiography to assess pulmonary artery pressure. Of note, the patient has history of tobacco use in the past. 4. Arterial blood gas also revealed some elements of CO2 retention. 5. Status post dual-chamber pacemaker implantation due to prior eun arrhythmias. The patient is regularly followed in [facility] in [place] and claims that the pacemaker had been interrogated about a week ago. 6. At this time, there is no interrogation required. The patient currently runs his own intrinsic heart rate at rate of 76. 7. A 12-lead electrocardiogram, of note, is completely within normal limits. 8. Renal failure, acute kidney injury versus chronic kidney disease. We have given fluid challenge and repeat the creatinine. Serum phosphorus may help in determining the chronicity of this condition. 9. The patient does not appear to be anemic. I would like to thank, Dr. Thomas, for the courtesy of this consultation. Sai Zavaleta M.D. DR: ELVIA JOB#: [id number] CC:
[2018-05-21 12:00] VITALS: BP 113/74
[2018-05-21] MEDS: Solu-MEDROL 125mg Inj IVP SCH ×2 (13:57→20:33)
--- NOTE | 2018-05-21 14:46 | Cardiology Report ---
APPROVED REPORT EXAM: Two-dimensional and M-mode echocardiogram with Doppler and color Doppler. INDICATION Arrhythmia M-Mode DIMENSIONS IVSd1.4 (0.7-1.1cm)Left Atrium (MM)4.1 (1.6-4.0cm) LVDd3.7 (3.5-5.6cm)Aortic Root3.4 (2.0-3.7cm) PWd1.5 (0.7-1.1cm)Aortic Cusp Exc.1.7 (1.5-2.0cm) IVSs1.7 cm LVDs2.7 (2.5-4.0cm) PWs1.8 cm Technically difficult study due to poor acoustical windows. Normal left ventricular chamber size, systolic function and wall motion to extent visualized. Left ventricular ejection fraction estimated to be 60-65 %. No evidence of left ventricular hypertrophy . Trace posterior pericardial effusion. Mild right atrial enlargements . Left cardiac chamber sizes are within normal limits. Left ventricular chamber size is within size limits . Focal aortic valve sclerosis with adequate cusp excursion. Thickened mitral valve leaflets with normal excursion. Mitral annulus and aortic root calcification. Pulmonic valve not well visualized. Normal tricuspid valve structure. IVC dilated at 2.1 cm with physiologic collapse . A color flow and spectral Doppler study was performed and revealed: No aortic regurgitation. Trace mitral regurgitation. Mitral diastolic velocities suggest reduced left ventricular relaxation c/w mild LV diastolic dysfunction (Grade I ). Mild tricuspid regurgitation Present . Tricuspid systolic velocities suggests peak right ventricular systolic pressure of 37 mmHg,consistent with mild pulmonary hypertension. Mild Pulmonic regurgitation present.
--- NOTE | 2018-05-21 14:55 | Cardiology Report ---
APPROVED REPORT EKG Measurement Heart [id number] Normal sinus rhythm Normal ECG
--- NOTE | 2018-05-21 15:33 | Consultation ---
Consult Note Consult Note asked to eval for elevated Cr Patient reports significant history of COPD Reports that he has been attempting to improve at home for the past 2 days However with increased cough and congestion and shortness of breath With the lack of any improvement with medications at home he presents to the ER Denies any vomiting or diarrhea Denies any dysuria or frequency Denies any recent travel Allergies: Coded Allergies: ASPIRIN (Verified Allergy, Unknown, 02/26/17) CORTISONE (Verified Allergy, Unknown, 02/26/17) PEPPER (GENUS CAPSICUM) (Verified Allergy, Unknown, Shortness of Breath, ) Hx Cardiac Problems: Yes Hx Pacemaker: Yes - Left Chest Pacemaker Hx Asthma: Yes Hx COPD: Yes - COPD Hx Gastrointestinal Problems: Yes interviewed- examined- Assessment/Plan Exacerbation Asthma / COPD Pacer / EjFx well preserved Mild elevation Cr, ? CKD UA U Na Hydrate- pulmonary support Monitor renal parameters avoid nephrotoxics Ian Boykin MD May 21, 2018 15:33
[2018-05-21 16:00] VITALS: BP 130/79
--- NOTE | 2018-05-21 17:00 | Consultation ---
DATE OF CONSULTATION: 05/21/2018 PULMONARY CONSULTATION CONSULTING PHYSICIAN: Ernie Boyd M.D. REFERRING PHYSICIAN: Lee Thomas M.D. REASON FOR CONSULTATION: Chronic obstructive pulmonary disease and asthma exacerbation. HISTORY OF PRESENT ILLNESS: The patient is a 52-year-old male smoker with a history of asthma and chronic obstructive pulmonary disease overlap syndrome, sick sinus syndrome, pacemaker, recent admission to another hospital with chronic obstructive pulmonary disease exacerbation after initially presenting to the [facility], now presenting with two to three days of cough, congestion, shortness of breath, and wheezing. He has marked bronchospasm. He states that he has been using albuterol inhaler without relief. At baseline, he uses Singulair, Advair, and theophylline. He states that he has a prednisone allergy, but he describes the allergy as a rash and itching. He upon arriving to the hospital has been afebrile. His vital signs have been stable and he is saturating well on two liters of oxygen. His workup demonstrated normal white count, normal hemoglobin, and normal platelets. ABG was 7.43/50/79/27/94. He has a creatinine of 1.5, which has not significantly changed from prior. His chest x-ray done and reviewed by myself was unremarkable. Pacemaker is noted. PAST MEDICAL HISTORY: 1. Asthma. 2. Chronic obstructive pulmonary disease. 3. Sick sinus syndrome, status post pacemaker. MEDICATIONS: Prior to admission medications, 1. ProAir. 2. Atrovent HFA. 3. Singulair 10 mg a day. 4. Advair 500/5. 5. Brody 100 mg p.o. b.i.d. ALLERGIES: Aspirin, cortisone, and pepper. SOCIAL HISTORY: He has been smoking on and off for many years. Denies any drug or alcohol. FAMILY HISTORY: Noncontributory. REVIEW OF SYSTEMS: Negative other than history of present illness. PHYSICAL EXAMINATION: VITAL SIGNS: Temp 97.5, pulse 80, blood pressure 102/82, respiratory rate 20, and saturating 100% on two liters. GENERAL: He is a well-developed and well-nourished male, in mild respiratory distress. HEENT: Normocephalic and atraumatic. Oropharynx is clear with moist mucous membranes. NECK: Supple without lymphadenopathy or JVP. CHEST: Inspiratory and expiratory wheezing noted. HEART: Regular rate and rhythm. ABDOMEN: Soft, nontender, and nondistended. EXTREMITIES: No cyanosis, clubbing, or edema. ANCILLARY DATA: White count 8.6, hemoglobin 14.2, and platelet count 239,000. ABG 7.42/50/79/27/94. Sodium 143, potassium 3.9, chloride 104, bicarb 30, BUN 19, creatinine 1.5, glucose 96, and calcium 9.2. LFTs normal. Lipase 170. Troponin negative. Chest x-ray, pacemaker, otherwise, no acute findings. ASSESSMENT: The patient is a 52-year-old male smoker with a history of asthma and chronic obstructive pulmonary disease overlap syndrome, presenting with an acute exacerbation of his underlying obstructive lung disease. The patient has a stated allergy/intolerance to corticosteroids, but upon further questioning, he describes this as a rash and itching. Given his current degree of bronchospasm and tightness, I feel that the risks of corticosteroid therapy outweigh the benefits. Thus, I will start him on corticosteroids and deal with side effects accordingly. PROBLEM LIST: 1. Chronic obstructive pulmonary disease/asthma with acute exacerbation. 2. Possible antecedent URI or other respiratory illness. 3. Current daily smoker. 4. Sick sinus syndrome, status post pacemaker. 5. Stated history of corticosteroid intolerance. 6. Chronic kidney disease. TREATMENT PLAN: 1. Optimize pulmonary hygiene/mobilize as tolerated. 2. Continue the patient's prior pulmonary medications including Singulair, Advair, and Brody. 3. [id number]-ahblf and p.r.n. DuoNebs. 4. We will start Solu-Medrol 60 mg IV t.i.d. and taper. 5. We will watch for corticosteroid side effects including the patient's stated side effect of itching, which we could manage most likely with topical elements or Benadryl. 6. Monitor for signs of a respiratory infection. 7. We will check theophylline level. 8. DVT prophylaxis with heparin subcutaneous. 9. Aspiration precautions. 10. Nicotine patch. 11. Continue to discuss abstinence from tobacco use. 12. The patient should follow up with his core drier, Dr. Sadi Botello as an outpatient to optimize his chronic obstructive pulmonary disease management. Ernie Boyd M.D. DR: DIANA JOB#: [id number] CC:
--- NOTE | 2018-05-21 18:15 | Consultation ---
DATE OF CONSULTATION: 05/21/2018 INFECTIOUS DISEASE CONSULTATION CONSULTING PHYSICIAN: Danis Escalona M.D. PRIMARY ATTENDING PHYSICIAN: Lee Thomas M.D. REASON FOR CONSULT: COPD with exacerbation. HISTORY OF PRESENT ILLNESS: A 52-year-old male admitted yesterday from home because of shortness of breath, has cough. He states that he has COPD and has had hypoxemia. PAST MEDICAL HISTORY: Significant for COPD and asthma. He is status post pacemaker, on and off smoking, history of hypoxemia, but does not take oxygen at home. ALLERGIES: To aspirin, cortisone, pepper, and perfumes. MEDICATIONS: Getting Zithromax, Advil, methylprednisone, diphenhydramine, singular, theophylline, albuterol and ipratropium inhaler, clonidine, and Tylenol. SOCIAL HISTORY: He has fiancee. Smoker, 20 cigarettes a day. He has early detention. REVIEW OF SYSTEMS: No fever. No chills. No sore throat. No runny nose. Productive coughing that is better. Shortness of breath that is increased in the past couple of days, more in exertion. The patient cannot walk anymore and in the past few days was in the bed. No nausea. No vomiting. No diarrhea. No dysuria. PHYSICAL EXAMINATION: GENERAL APPEARANCE: No acute distress, awake, alert, and oriented. VITAL SIGNS: Temperature 97.5 degrees, pulse 75 and blood pressure 120/82. HEAD AND NECK: Getting oxygen by nasal cannula. No oral lesion. HEART: S1 and S2. He has a pacemaker on the left side of the chest. Regular heart rate. LUNGS: Clear with decreased sounds. ABDOMEN: Soft and nontender. EXTREMITIES: He has no edema. LABORATORY AND DIAGNOSTIC DATA: WBC 8.6, hemoglobin 14.2, hematocrit 45.9, and platelets 239. Sodium 143, potassium 3.9, chloride 104, bicarbonate 13, BUN 19, creatinine 1.5, and glucose is 96. Blood gas showed pCO2 of 50.8, PO2 79.4. Chest x-ray was negative. IMPRESSION: chronic obstructive pulmonary disease, asthma exacerbation. The patient has hypercapnic hypoxemic respiratory failure, smoker, seems to have chronic kidney disease. Last year, creatinine 1.42 and this year is 1.5. He is status post pacemaker. RECOMMENDATION: 1. We will continue with Zithromax. 2. We will follow up the labs and cultures. 3. May benefit from oxygen at home. At the end of my exam, I thank Dr. Thomas for involving me in the care of this patient. Danis Escalona M.D. DR: TAINA JOB#: [id number] CC: MILLIE
--- NOTE | 2018-05-21 18:30 | History and Physical Report ---
DATE OF ADMISSION: 05/20/2018 HISTORY OF PRESENT ILLNESS: He comes in with COPD exacerbation, initially on BiPAP, went to [facility]. The patient says that he had asthma for 27 years, COPD for the past 5 years, and comes in with shortness of breath, wheezing, and dizziness for 2-1/2 days. No coughing at this time. The patient denies any fever or chills. Denies nausea, vomiting, or diarrhea. Denies orthopnea. Denies chest pain. Denies any headache or flu-like symptoms. PAST MEDICAL HISTORY: Asthma/COPD, arrhythmia, and history of appendicitis. PAST SURGICAL HISTORY: Pacemaker, appendectomy, and back surgery. MEDICATIONS: He takes nebulizer solution. He takes Singulair and cortisone inhaler and theophylline. ALLERGIES: Aspirin. The patient says that he itches with cortisone, so it is not a true allergy. Pepper. FAMILY HISTORY: Does have history of asthma. SOCIAL HISTORY: The patient smokes off and on, and denies history of drug and alcohol abuse. REVIEW OF SYSTEMS: HEENT: Denies any headaches. RESPIRATORY: Reports shortness of breath and wheezing for uvw-kfw-d-half days. No coughing. CARDIOVASCULAR: Denies chest pain. Denies orthopnea. GASTROINTESTINAL: Denies palpitations. GASTROINTESTINAL: Denies nausea, vomiting, or diarrhea. Does have heartburn at times. EXTREMITIES: Denies pain in lower extremities. ICE CREAM CHEF: No change in vision or speech pattern. PHYSICAL EXAMINATION: VITAL SIGNS: Temperature is 97.5, pulse 80, and blood pressure 120/82. HEENT: PERRLA. NECK: Supple. No lymphadenopathy. CHEST: Bibasilar wheezing CARDIOVASCULAR: Regular rate and rhythm. Pacemaker sound is heard. ABDOMEN: Soft and nondistended. Positive bowel sounds. No organomegaly. EXTREMITIES: No edema. He is able to move all extremities equally. Reflexes equal on both sides. LABORATORY AND DIAGNOSTIC DATA: Chest x-ray findings are compatible with COPD. Laboratory harding, WBC of 7.4, hemoglobin 14.5, and platelets 250,000. Sodium 143, potassium 4.1, chloride 104, BUN of 18, creatinine 1.5, and glucose of 128. ASSESSMENT AND PLAN: Chronic obstructive pulmonary disease exacerbation. PLAN: I have asked Dr. Boyd, Dr. Escalona, Dr. Boykin, and Dr. Zavaleta to see the patient to rule out bronchitis as well as for COPD management as well as for azotemia and dehydration and rule out any coronary etiology for as well. Also, Dr. Zavaleta is going to follow the patient for tachycardia. Lee Thomas M.D. DR: FLORENCIO JOB#: [id number] CC:
[2018-05-21 18:44] LABS: APPEARANCE,URINE CLEAR; BILIRUBIN, URINE NEGATIVE (NEGATIVE); COLOR,URINE PALE YELLOW; GLUCOSE, URINE (UA) NEGATIVE (NEGATIVE); KETONES,URINE 3+ (NEGATIVE); LEUKOCYTE ESTERASE ,URINE NEGATIVE (NEGATIVE); NITRITE,URINE NEGATIVE (NEGATIVE); PH,URINE 6 (4.5-8.0); PROTEIN,URINE NEGATIVE (NEGATIVE); UROBILINOGEN,URINE NORMAL MG/DL (0.0-1.0)
[2018-05-21 20:00] VITALS: BP 118/69
[2018-05-21] MEDS: Advair 250/50 Inhaler - 14 dose INH SCH (20:03)
[2018-05-21] MEDS: Tamsulosin 0.4mg cap ORAL SCH (20:33)
[2018-05-21] MEDS: DiphenhydrAMINE 50mg/ml Inj IVP PRN (20:33)
[2018-05-22] VITALS: BP 136/73
[2018-05-22] MEDS: Albuterol/Ipratropium 3ml neb HHN SCH ×4 (01:35→19:27)
[2018-05-22 04:00] VITALS: BP 116/61
[2018-05-22 04:49] LABS: HEMATOCRIT 45.8 % (42.0-52.0); HEMOGLOBIN 13.9 G/DL (14.2-18.0); MEAN CORPUSCULAR VOLUME 67 FL (80-99); PLATELET COUNT 254 K/UL (150-450); RED BLOOD COUNT 6.88 M/UL (4.70-6.10); RED CELL DISTRIBUTION WIDTH 12.5 % (11.6-14.8); WHITE BLOOD COUNT 8.8 K/UL (4.8-10.8)
[2018-05-22] MEDS: Solu-MEDROL 125mg Inj IVP SCH ×2 (05:21→18:02)
[2018-05-22] MEDS: DiphenhydrAMINE 50mg/ml Inj IVP PRN (05:21)
[2018-05-22 05:26] LABS: ALANINE AMINOTRANSFERASE 44 U/L (12-78); ALBUMIN 3.9 G/DL (3.4-5.0); ALKALINE PHOSPHATASE 86 U/L (46-116); ANION GAP 13 mmol/L (5-15); ASPARTATE AMINO TRANSFERASE 12 U/L (15-37); BILIRUBIN,TOTAL 0.6 MG/DL (0.2-1.0); BLOOD UREA NITROGEN 20 mg/dL (7-18); CALCIUM 9.1 MG/DL (8.5-10.1); CARBON DIOXIDE 24 MMOL/L (21-32); CHLORIDE 101 MMOL/L (98-107); CHOLESTEROL 203 MG/DL (< 200); CREATININE 1.4 MG/DL (0.55-1.30); FERRITIN 141 NG/ML (8-388); HDL CHOLESTEROL 65 MG/DL (40-60); PHOSPHORUS 3.4 MG/DL (2.5-4.9); POTASSIUM 4.1 MMOL/L (3.5-5.1); SODIUM 138 MMOL/L (136-145); TRIGLYCERIDES 25 MG/DL (30-150)
[2018-05-22 05:57] LABS: % IRON SATURATION 13 % (15-50); IRON 37 ug/dL (50-175); TOTAL IRON BINDING CAPACITY 285 ug/dL (250-450)
[2018-05-22 08:00] VITALS: BP 112/73
[2018-05-22] MEDS: Azithromycin 250mg tab ORAL SCH (08:52)
[2018-05-22] MEDS: Theophylline ER 100mg ORAL SCH ×2 (08:52→18:01)
[2018-05-22] MEDS: Montelukast 10mg tablet ORAL SCH (08:52)
--- NOTE | 2018-05-22 09:02 | Pulmonology Progress Note ---
Assessment/Plan Problems: (1) COPD (chronic obstructive pulmonary disease) (2) Dyspnea Assessment/Plan ASSESSMENT: The patient is a 52-year-old male smoker with a history of asthma and chronic obstructive pulmonary disease overlap syndrome, presenting with an acute exacerbation of his underlying obstructive lung disease. The patient has a stated allergy/intolerance to corticosteroids, but upon further questioning, he describes this as a rash and itching. Given his initial degree of bronchospasm and tightness, I feel that the risks of corticosteroid therapy outweighed the benefits. PROBLEM LIST: 1. Chronic obstructive pulmonary disease/asthma with acute exacerbation. 2. Possible antecedent URI or other respiratory illness. 3. Current daily smoker. 4. Sick sinus syndrome, status post pacemaker. 5. Stated history of corticosteroid intolerance. 6. Chronic kidney disease. TREATMENT PLAN: 1. Optimize pulmonary hygiene/mobilize as tolerated. 2. Continue the patient's prior pulmonary medications including Singulair, Advair, and Brody. 3. [id number] and p.r.n. DuoNebs. 4. Decrease Solu-Medrol to 40 mg IV BID. and taper. 5. We will watch for corticosteroid side effects including the patient's stated side effect of itching, which we could manage most likely with topical elements or Benadryl. 6. Azithro (D2/5) 7. We will check theophylline level. 8. DVT prophylaxis with heparin subcutaneous. 9. Aspiration precautions. 10. Nicotine patch. 11. Continue to discuss abstinence from tobacco use. 12. The patient should follow up with his chicken stuffer, Dr. Sadi Botello as an outpatient to optimize his chronic obstructive pulmonary disease management. Subjective Allergies: Coded Allergies: ASPIRIN (Verified Allergy, Unknown, 02/26/17) CORTISONE (Verified Allergy, Unknown, 02/26/17) PEPPER (GENUS CAPSICUM) (Verified Allergy, Unknown, Shortness of Breath, ) Subjective AFVSS, stable on 2L Jacques steroids but had some itching Less SOB, cough and wheezing better, no F/C Objective Last 24 Hour Vital Signs Date Time Temp Pulse Resp B/P (MAP) Pulse Ox O2 Delivery O2 Flow Rate FiO2 05/22/18 08:24 90 05/22/18 07:59 93 16 99 Nasal Cannula 2.0 28 05/22/18 07:49 80 16 95 Nasal Cannula 2.0 28 05/22/18 07:49 Nasal Cannula 2.0 28 05/22/18 07:49 95 Nasal Cannula 2.0 05/22/18 04:00 Nasal Cannula 2.0 05/22/18 04:00 95 05/22/18 04:00 98.0 97 20 116/61 (79) 100 98.0 05/22/18 01:42 88 20 100 Nasal Cannula 2.0 05/22/18 01:35 80 20 95 Nasal Cannula 2.0 28 05/22/18 00:00 Nasal Cannula 2.0 05/22/18 00:00 94 05/22/18 00:00 98.4 99 20 136/73 (94) 99 98.4 05/21/18 20:10 96 20 99 Nasal Cannula 2.0 28 05/21/18 20:00 84 20 94 Nasal Cannula 2.0 28 05/21/18 20:00 98.0 91 20 118/69 (85) 99 98.0 05/21/18 20:00 Nasal Cannula 2.0 05/21/18 19:56 Nasal Cannula 2.0 28 05/21/18 19:55 94 Nasal Cannula 2.0 98 05/21/18 16:00 80 05/21/18 16:00 97.9 80 20 130/79 (96) 95 97.9 05/21/18 16:00 Nasal Cannula 2.0 05/21/18 13:39 93 20 99 Nasal Cannula 2.0 28 05/21/18 13:29 73 20 94 Nasal Cannula 2.0 28 05/21/18 12:00 97.9 66 20 113/74 (87) 95 97.9 05/21/18 12:00 71 05/21/18 12:00 Nasal Cannula 2.0 Intake and Output 05/21/18 05/22/18 19:00 07:00 Intake Total 749 ml 720 ml Output Total 1050 ml Balance -301 ml 720 ml Intake IV Total 749 ml 720 ml Output Urine Total 1050 ml # Voids 4 3 General Appearance: WD/WN, no acute distress HEENT: normocephalic, atraumatic, anicteric, mucous membranes moist Respiratory/Chest: chest wall non-tender, no respiratory distress, no accessory muscle use, expiratory wheezing Cardiovascular: normal peripheral pulses, normal rate, regular rhythm Abdomen: normal bowel sounds, soft, non tender, no organomegaly, non distended Extremities: no cyanosis, no clubbing, no edema Laboratory Tests 05/21/18 18:10: Urine Color Pale yellow, Urine Appearance Clear, Urine pH 6, Urine Specific Thida 1.010, Urine Protein Negative, Urine Glucose (UA) Negative, Urine Ketones 3+H, Urine Occult Blood Negative, Urine Nitrite Negative, Urine Bilirubin Negative, Urine Urobilinogen Normal, Urine Leukocyte Esterase Negative , Urine RBC 0-2H, Urine WBC 0-2, Urine Squamous Epithelial Cells None, Urine Bacteria None 05/22/18 04:00: Urine Random Sodium 52 05/22/18 04:28: White Blood Count 8.8, Red Blood Count 6.88H, Hemoglobin 13.9L, Hematocrit 45.8 , Mean Corpuscular Volume 67L, Mean Corpuscular Hemoglobin 20.2L, Mean Corpuscular Hemoglobin Concent 30.3L, Red Cell Distribution Width 12.5, Platelet Count 254, Mean Platelet Volume 8.1, Neutrophils (%) (Auto) , Lymphocytes (%) (Auto) , Monocytes (%) (Auto) , Eosinophils (%) (Auto) , Basophils (%) (Auto) , Differential Total Cells Counted 100, Neutrophils % ( Manual) 90H, Lymphocytes % (Manual) 9L, Monocytes % (Manual) 1, Eosinophils % ( Manual) 0, Basophils % (Manual) 0, Band Neutrophils 0, Platelet Estimate Adequate, Platelet Morphology Normal, Hypochromasia 1+, Anisocytosis 1+, Microcytosis 3+, Sodium Level 138, Potassium Level 4.1, Chloride Level 101, Carbon Dioxide Level 24, Anion Gap 13, Blood Urea Nitrogen 20H, Creatinine 1.4H , Estimat Glomerular Filtration Rate 52.8, Glucose Level 163H, Uric Acid 9.4H, Calcium Level 9.1, Phosphorus Level 3.4, Magnesium Level 1.9, Iron Level 37L, Total Iron Binding Capacity 285, Percent Iron Saturation 13L, Unsaturated Iron Binding 248, Ferritin 141, Total Bilirubin 0.6, Aspartate Amino Transf (AST/SGOT ) 12L, Alanine Aminotransferase (ALT/SGPT) 44, Alkaline Phosphatase 86, C- Reactive Protein, Quantitative 2.5H, Pro-B-Type Natriuretic Peptide 41, Total Protein 7.8, Albumin 3.9, Globulin 3.9, Albumin/Globulin Ratio 1.0, Triglycerides Level 25L, Cholesterol Level 203H, LDL Cholesterol 135H, HDL Cholesterol 65H, Cholesterol/HDL Ratio 3.1L, Vitamin B12 Level 502, Folate 35.7 , Thyroid Stimulating Hormone (TSH) 0.362 Current Medications Medications (Trade) Dose Ordered Sig/Leno Route PRN Reason Start Time Stop Time Status Last Admin Dose Admin Acetaminophen (Tylenol) 650 mg Q6H PRN ORAL Mild Pain/Temp > 100.5 05/20/18 22:15 06/19/18 22:14 05/20/18 23:31 Albuterol/ Ipratropium (Albuterol/ Ipratropium) 3 ml Q4HRT PRN HHN Shortness of Breath 05/20/18 23:15 05/25/18 23:14 Albuterol/ Ipratropium (Albuterol/ Ipratropium) 3 ml Q6HRT HHN 05/20/18 23:15 05/25/18 23:14 05/22/18 07:54 Azithromycin (Zithromax) 250 mg DAILY ORAL 05/22/18 09:00 05/26/18 09:01 05/22/18 08:52 Clonidine HCl (Catapres Tab) 0.1 mg EVERY 6 HOURS PRN ORAL For High Blood Pressure 05/20/18 22:15 06/19/18 22:14 Diphenhydramine HCl (Benadryl Cream) 1 applic THREE TIMES A DAY PRN TOPIC Itching 05/21/18 10:30 06/20/18 10:29 05/22/18 07:41 Diphenhydramine HCl (Benadryl) 25 mg Q6H PRN ORAL Itching 05/22/18 08:00 06/21/18 07:59 05/22/18 08:53 Famotidine (Pepcid) 20 mg BID ORAL 05/21/18 18:00 06/20/18 17:59 05/22/18 08:52 Methylprednisolone Sodium Succinate (Solu-MEDROL) 60 mg EVERY 8 HOURS IVP 05/21/18 14:00 06/20/18 13:59 05/22/18 05:21 Montelukast Sodium (Singulair) 10 mg DAILY ORAL 05/21/18 09:00 06/20/18 08:59 05/22/18 08:52 Salmeterol Xinafoate/ Fluticasone (Advair 250/50 Diskus) 1 puffs BID INH 05/21/18 18:00 06/20/18 17:59 Sodium Chloride 1,000 ml @ 60 mls/hr [id number] IV 05/20/18 22:15 06/19/18 22:14 05/22/18 05:21 Tamsulosin HCl (Flomax) 0.4 mg BEDTIME ORAL 05/21/18 21:00 06/20/18 20:59 05/21/18 20:33 Theophylline (Fausto-Dur) 200 mg TWICE A DAY ORAL 05/21/18 09:00 06/20/18 08:59 05/22/18 08:52 Ernie Boyd MD May 22, 2018 09:02
--- NOTE | 2018-05-22 10:21 | Nephrology Progress Note ---
Assessment/Plan Problem List: (1) Renal failure (ARF), acute on chronic Assessment: Cr 1.5 (2) Pacemaker (3) COPD exacerbation (4) Respiratory distress Assessment Exacerbation Asthma / COPD- wheezing down Pacer / EjFx well preserved Mild elevation Cr, ? CKD Plan UA U Na Hydrate- change IV fluid pulmonary support Monitor renal parameters avoid nephrotoxics Subjective ROS Limited/Unobtainable: No Constitutional: Reports: malaise Objective Objective Last 24 Hour Vital Signs Date Time Temp Pulse Resp B/P (MAP) Pulse Ox O2 Delivery O2 Flow Rate FiO2 05/22/18 08:24 90 05/22/18 07:59 93 16 99 Nasal Cannula 2.0 28 05/22/18 07:49 80 16 95 Nasal Cannula 2.0 28 05/22/18 07:49 Nasal Cannula 2.0 28 05/22/18 07:49 95 Nasal Cannula 2.0 05/22/18 04:00 Nasal Cannula 2.0 05/22/18 04:00 95 05/22/18 04:00 98.0 97 20 116/61 (79) 100 98.0 05/22/18 01:42 88 20 100 Nasal Cannula 2.0 28 05/22/18 01:35 80 20 95 Nasal Cannula 2.0 28 05/22/18 00:00 Nasal Cannula 2.0 05/22/18 00:00 94 05/22/18 00:00 98.4 99 20 136/73 (94) 99 98.4 05/21/18 20:10 96 20 99 Nasal Cannula 2.0 28 05/21/18 20:00 84 20 94 Nasal Cannula 2.0 28 05/21/18 20:00 98.0 91 20 118/69 (85) 99 98.0 05/21/18 20:00 Nasal Cannula 2.0 05/21/18 19:56 Nasal Cannula 2.0 28 05/21/18 19:55 94 Nasal Cannula 2.0 98 05/21/18 16:00 80 05/21/18 16:00 97.9 80 20 130/79 (96) 95 97.9 05/21/18 16:00 Nasal Cannula 2.0 05/21/18 13:39 93 20 99 Nasal Cannula 2.0 28 05/21/18 13:29 73 20 94 Nasal Cannula 2.0 28 05/21/18 12:00 97.9 66 20 113/74 (87) 95 97.9 05/21/18 12:00 71 05/21/18 12:00 Nasal Cannula 2.0 Intake and Output 05/21/18 05/22/18 19:00 07:00 Intake Total 749 ml 720 ml Output Total 1050 ml Balance -301 ml 720 ml Intake IV Total 749 ml 720 ml Output Urine Total 1050 ml # Voids 4 3 Laboratory Tests 05/21/18 18:10: Urine Color Pale yellow, Urine Appearance Clear, Urine pH 6, Urine Specific Yolyn 1.010, Urine Protein Negative, Urine Glucose (UA) Negative, Urine Ketones 3+H, Urine Occult Blood Negative, Urine Nitrite Negative, Urine Bilirubin Negative, Urine Urobilinogen Normal, Urine Leukocyte Esterase Negative , Urine RBC 0-2H, Urine WBC 0-2, Urine Squamous Epithelial Cells None, Urine Bacteria None 05/22/18 04:00: Urine Random Sodium 52 05/22/18 04:28: White Blood Count 8.8, Red Blood Count 6.88H, Hemoglobin 13.9L, Hematocrit 45.8 , Mean Corpuscular Volume 67L, Mean Corpuscular Hemoglobin 20.2L, Mean Corpuscular Hemoglobin Concent 30.3L, Red Cell Distribution Width 12.5, Platelet Count 254, Mean Platelet Volume 8.1, Neutrophils (%) (Auto) , Lymphocytes (%) (Auto) , Monocytes (%) (Auto) , Eosinophils (%) (Auto) , Basophils (%) (Auto) , Differential Total Cells Counted 100, Neutrophils % ( Manual) 90H, Lymphocytes % (Manual) 9L, Monocytes % (Manual) 1, Eosinophils % ( Manual) 0, Basophils % (Manual) 0, Band Neutrophils 0, Platelet Estimate Adequate, Platelet Morphology Normal, Hypochromasia 1+, Anisocytosis 1+, Microcytosis 3+, Sodium Level 138, Potassium Level 4.1, Chloride Level 101, Carbon Dioxide Level 24, Anion Gap 13, Blood Urea Nitrogen 20H, Creatinine 1.4H , Estimat Glomerular Filtration Rate 52.8, Glucose Level 163H, Uric Acid 9.4H, Calcium Level 9.1, Phosphorus Level 3.4, Magnesium Level 1.9, Iron Level 37L, Total Iron Binding Capacity 285, Percent Iron Saturation 13L, Unsaturated Iron Binding 248, Ferritin 141, Total Bilirubin 0.6, Aspartate Amino Transf (AST/SGOT ) 12L, Alanine Aminotransferase (ALT/SGPT) 44, Alkaline Phosphatase 86, C- Reactive Protein, Quantitative 2.5H, Pro-B-Type Natriuretic Peptide 41, Total Protein 7.8, Albumin 3.9, Globulin 3.9, Albumin/Globulin Ratio 1.0, Triglycerides Level 25L, Cholesterol Level 203H, LDL Cholesterol 135H, HDL Cholesterol 65H, Cholesterol/HDL Ratio 3.1L, Vitamin B12 Level 502, Folate 35.7 , Thyroid Stimulating Hormone (TSH) 0.362 Height (Feet): 6 Height (Inches): 3.00 Weight (Pounds): 212 General Appearance: no apparent distress Cardiovascular: regular rhythm Respiratory/Chest: other - less wheez Abdomen: soft Ian Boykin MD May 22, 2018 10:21
[2018-05-22] MEDS: Advair 250/50 Inhaler - 14 dose INH SCH ×2 (11:17→19:25)
[2018-05-22 12:00] VITALS: BP 123/60
--- NOTE | 2018-05-22 12:54 | Infectious Diseases Prog Note ---
Assessment/Plan Assessment/Plan A; COPD/Asthma exacerbation Eosinophilia Nicotine dependence Hypercapnic /hypoxemic respiratory failure P: Continue Zithromax Taper steroids Subjective ROS Limited/Unobtainable: No Constitutional: Reports: no symptoms, other - doing better Respiratory: Reports: shortness of breath Cardiovascular: Reports: no symptoms Gastrointestinal/Abdominal: Reports: no symptoms Genitourinary: Reports: no symptoms Allergies: Coded Allergies: ASPIRIN (Verified Allergy, Unknown, 02/26/17) CORTISONE (Verified Allergy, Unknown, 02/26/17) PEPPER (GENUS CAPSICUM) (Verified Allergy, Unknown, Shortness of Breath, ) Objective Vital Signs Last 24 Hour Vital Signs Date Time Temp Pulse Resp B/P (MAP) Pulse Ox O2 Delivery O2 Flow Rate FiO2 05/22/18 08:24 90 05/22/18 07:59 93 16 99 Nasal Cannula 2.0 05/22/18 07:49 80 16 95 Nasal Cannula 2.0 05/22/18 07:49 Nasal Cannula 2.0 05/22/18 07:49 95 Nasal Cannula 2.0 05/22/18 04:00 Nasal Cannula 2.0 05/22/18 04:00 95 05/22/18 04:00 98.0 97 20 116/61 (79) 100 98.0 05/22/18 01:42 88 20 100 Nasal Cannula 2.0 05/22/18 01:35 80 20 95 Nasal Cannula 2.0 05/22/18 00:00 Nasal Cannula 2.0 05/22/18 00:00 94 05/22/18 00:00 98.4 99 20 136/73 (94) 99 98.4 05/21/18 20:10 96 20 99 Nasal Cannula 2.0 05/21/18 20:00 84 20 94 Nasal Cannula 2.0 05/21/18 20:00 98.0 91 20 118/69 (85) 99 98.0 05/21/18 20:00 Nasal Cannula 2.0 05/21/18 19:56 Nasal Cannula 2.0 05/21/18 19:55 94 Nasal Cannula 2.0 98 05/21/18 16:00 80 05/21/18 16:00 97.9 80 20 130/79 (96) 95 97.9 05/21/18 16:00 Nasal Cannula 2.0 05/21/18 13:39 93 20 99 Nasal Cannula 2.0 28 05/21/18 13:29 73 20 94 Nasal Cannula 2.0 28 Height (Feet): 6 Height (Inches): 3.00 Weight (Pounds): 212 HEENT: mucous membranes moist Respiratory/Chest: decreased breath sounds, other - oxygen by nasal cannula Cardiovascular: normal rate Abdomen: soft, non tender Extremities: no edema Neurologic/Psychiatric: alert, oriented x 3, responsive Laboratory Tests Test 05/21/18 18:10 05/22/18 04:00 05/22/18 04:28 Urine Color Pale yellow Urine Appearance Clear Urine pH 6 (4.5-8.0) Urine Specific Hoagland 1.010 (1.005-1.035) Urine Protein Negative (NEGATIVE) Urine Glucose (UA) Negative (NEGATIVE) Urine Ketones 3+ (NEGATIVE) H Urine Occult Blood Negative (NEGATIVE) Urine Nitrite Negative (NEGATIVE) Urine Bilirubin Negative (NEGATIVE) Urine Urobilinogen Normal MG/DL (0.0-1.0) Urine Leukocyte Esterase Negative (NEGATIVE) Urine RBC 0-2 /HPF (0 - 0) H Urine WBC 0-2 /HPF (0 - 0) Urine Squamous Epithelial Cells None /LPF (NONE/OCC) Urine Bacteria None /HPF (NONE) Urine Random Sodium 52 mmol/L (20-110) White Blood Count 8.8 K/UL (4.8-10.8) Red Blood Count 6.88 M/UL (4.70-6.10) H Hemoglobin 13.9 G/DL (14.2-18.0) L Hematocrit 45.8 % (42.0-52.0) Mean Corpuscular Volume 67 FL (80-99) L Mean Corpuscular Hemoglobin 20.2 PG (27.0-31.0) L Mean Corpuscular Hemoglobin Concent 30.3 G/DL (32.0-36.0) L Red Cell Distribution Width 12.5 % (11.6-14.8) Platelet Count 254 K/UL (150-450) Mean Platelet Volume 8.1 FL (6.5-10.1) Neutrophils (%) (Auto) % (45.0-75.0) Lymphocytes (%) (Auto) % (20.0-45.0) Monocytes (%) (Auto) % (1.0-10.0) Eosinophils (%) (Auto) % (0.0-3.0) Basophils (%) (Auto) % (0.0-2.0) Differential Total Cells Counted 100 Neutrophils % (Manual) 90 % (45-75) H Lymphocytes % (Manual) 9 % (20-45) L Monocytes % (Manual) 1 % (1-10) Eosinophils % (Manual) 0 % (0-3) Basophils % (Manual) 0 % (0-2) Band Neutrophils 0 % (0-8) Platelet Estimate Adequate Platelet Morphology Normal Hypochromasia 1+ Anisocytosis 1+ Microcytosis 3+ Sodium Level 138 MMOL/L (136-145) Potassium Level 4.1 MMOL/L (3.5-5.1) Chloride Level 101 MMOL/L (98-107) Carbon Dioxide Level 24 MMOL/L (21-32) Anion Gap 13 mmol/L (5-15) Blood Urea Nitrogen 20 mg/dL (7-18) H Creatinine 1.4 MG/DL (0.55-1.30) H Estimat Glomerular Filtration Rate 52.8 mL/min (>60) Glucose Level 163 MG/DL (74-106) H Uric Acid 9.4 MG/DL (2.6-7.2) H Calcium Level 9.1 MG/DL (8.5-10.1) Phosphorus Level 3.4 MG/DL (2.5-4.9) Magnesium Level 1.9 MG/DL (1.8-2.4) Iron Level 37 ug/dL (50-175) L Total Iron Binding Capacity 285 ug/dL (250-450) Percent Iron Saturation 13 % (15-50) L Unsaturated Iron Binding 248 ug/dL (112-346) Ferritin 141 NG/ML (8-388) Total Bilirubin 0.6 MG/DL (0.2-1.0) Aspartate Amino Transf (AST/SGOT) 12 U/L (15-37) L Alanine Aminotransferase (ALT/SGPT) 44 U/L (12-78) Alkaline Phosphatase 86 U/L (46-116) C-Reactive Protein, Quantitative 2.5 mg/dL (0.00-0.90) H Pro-B-Type Natriuretic Peptide 41 pg/mL (0-125) Total Protein 7.8 G/DL (6.4-8.2) Albumin 3.9 G/DL (3.4-5.0) Globulin 3.9 g/dL Albumin/Globulin Ratio 1.0 (1.0-2.7) Triglycerides Level 25 MG/DL (30-150) L Cholesterol Level 203 MG/DL (< 200) H LDL Cholesterol 135 mg/dL (<100) H HDL Cholesterol 65 MG/DL (40-60) H Cholesterol/HDL Ratio 3.1 (3.3-4.4) L Vitamin B12 Level 502 PG/ML (193-986) Folate 35.7 NG/ML (8.6-58.9) Thyroid Stimulating Hormone (TSH) 0.362 uiU/mL (0.358-3.740) Current Medications Medications (Trade) Dose Ordered Sig/Leno Route PRN Reason Start Time Stop Time Status Last Admin Dose Admin Acetaminophen (Tylenol) 650 mg Q6H PRN ORAL Mild Pain/Temp > 100.5 05/20/18 22:15 06/19/18 22:14 05/20/18 23:31 Albuterol/ Ipratropium (Albuterol/ Ipratropium) 3 ml Q4HRT PRN HHN Shortness of Breath 05/20/18 23:15 05/25/18 23:14 Albuterol/ Ipratropium (Albuterol/ Ipratropium) 3 ml Q6HRT HHN 05/20/18 23:15 05/25/18 23:14 05/22/18 07:54 Azithromycin (Zithromax) 250 mg DAILY ORAL 05/22/18 09:00 05/26/18 09:01 05/22/18 08:52 Clonidine HCl (Catapres Tab) 0.1 mg EVERY 6 HOURS PRN ORAL For High Blood Pressure 05/20/18 22:15 06/19/18 22:14 Diphenhydramine HCl (Benadryl Cream) 1 applic THREE TIMES A DAY PRN TOPIC Itching 05/21/18 10:30 06/20/18 10:29 05/22/18 07:41 Diphenhydramine HCl (Benadryl) 25 mg Q6H PRN ORAL Itching 05/22/18 08:00 06/21/18 07:59 05/22/18 08:53 Famotidine (Pepcid) 20 mg BID ORAL 05/21/18 18:00 06/20/18 17:59 05/22/18 08:52 Methylprednisolone Sodium Succinate (Solu-MEDROL) 40 mg BID IVP 05/22/18 18:00 06/20/18 13:59 Montelukast Sodium (Singulair) 10 mg DAILY ORAL 05/21/18 09:00 06/20/18 08:59 05/22/18 08:52 Salmeterol Xinafoate/ Fluticasone (Advair 250/50 Diskus) 1 puffs BID INH 05/21/18 18:00 06/20/18 17:59 05/22/18 11:17 Sodium Chloride 1,000 ml @ 50 mls/hr Q20H IV 05/22/18 10:30 06/21/18 10:29 05/22/18 10:30 Tamsulosin HCl (Flomax) 0.4 mg BEDTIME ORAL 05/21/18 21:00 06/20/18 20:59 05/21/18 20:33 Theophylline (Fausto-Dur) 200 mg TWICE A DAY ORAL 05/21/18 09:00 06/20/18 08:59 05/22/18 08:52 Danis Escalona MD May 22, 2018 12:54
[2018-05-22] MEDS ORDERED: 1/2 NS 1000ml IV ONE (14:50)
[2018-05-22 16:00] VITALS: BP 127/65
--- NOTE | 2018-05-22 16:47 | Cardiology Progress Note ---
Assessment/Plan Assessment/Plan 1. Shortness of breath most likely acute exacerbation of COPD. The patient most likely benefit from the steroid. However, Cardizem is listed as one of the medication that he has developed allergic reaction to. Discussed with Dr. Boyd, to determine if the steroid use is still prohibited. Given the above, the allergic reaction is mainly a side effect towards steroid in the past and not necessary allergic reaction. 2. The patient will continue to be on IV fluid as well as breathing treatment per Dr. Boyd. 3. From the cardiac standpoint, we would like to obtain 2D echocardiography to assess pulmonary artery pressure. Of note, the patient has history of tobacco use in the past. 4. Arterial blood gas also revealed some elements of CO2 retention. 5. Status post dual-chamber pacemaker implantation due to prior eun arrhythmias. The patient is regularly followed in [facility] in [place] and claims that the pacemaker had been interrogated about a week ago. 6. At this time, there is no interrogation required. The patient currently runs his own intrinsic heart rate at rate of 76. 7. A 12-lead electrocardiogram, of note, is completely within normal limits. 8. Renal failure, acute kidney injury versus chronic kidney disease. We have given fluid challenge and repeat the creatinine. Serum phosphorus may help in determining the chronicity of this condition. 9. The patient does not appear to be anemic. Objective Last 24 Hour Vital Signs Date Time Temp Pulse Resp B/P (MAP) Pulse Ox O2 Delivery O2 Flow Rate FiO2 05/22/18 16:00 Nasal Cannula 2.0 05/22/18 16:00 98.1 98 17 127/65 (85) 94 98.1 05/22/18 13:32 99 16 99 Nasal Cannula 2.0 28 05/22/18 13:22 100 16 98 Nasal Cannula 2.0 28 05/22/18 12:00 97.5 110 24 123/60 (81) 92 97.5 05/22/18 12:00 119 05/22/18 12:00 Nasal Cannula 2.0 05/22/18 08:24 90 05/22/18 08:00 98.0 101 22 112/73 (86) 95 98.0 05/22/18 08:00 Nasal Cannula 2.0 05/22/18 07:59 93 16 99 Nasal Cannula 2.0 28 05/22/18 07:49 80 16 95 Nasal Cannula 2.0 28 05/22/18 07:49 Nasal Cannula 2.0 28 05/22/18 07:49 95 Nasal Cannula 2.0 05/22/18 04:00 Nasal Cannula 2.0 05/22/18 04:00 95 05/22/18 04:00 98.0 97 20 116/61 (79) 100 98.0 05/22/18 01:42 88 20 100 Nasal Cannula 2.0 05/22/18 01:35 80 20 95 Nasal Cannula 2.0 28 05/22/18 00:00 Nasal Cannula 2.0 05/22/18 00:00 94 05/22/18 00:00 98.4 99 20 136/73 (94) 99 98.4 05/21/18 20:10 96 20 99 Nasal Cannula 2.0 28 05/21/18 20:00 84 20 94 Nasal Cannula 2.0 28 05/21/18 20:00 98.0 91 20 118/69 (85) 99 98.0 05/21/18 20:00 Nasal Cannula 2.0 05/21/18 19:56 Nasal Cannula 2.0 28 05/21/18 19:55 94 Nasal Cannula 2.0 98 Intake and Output 05/21/18 05/22/18 19:00 07:00 Intake Total 749 ml 720 ml Output Total 1050 ml Balance -301 ml 720 ml Intake IV Total 749 ml 720 ml Output Urine Total 1050 ml # Voids 4 3 Laboratory Tests Test 05/21/18 18:10 05/22/18 04:00 05/22/18 04:28 Urine Color Pale yellow Urine Appearance Clear Urine pH 6 (4.5-8.0) Urine Specific Thornton 1.010 (1.005-1.035) Urine Protein Negative (NEGATIVE) Urine Glucose (UA) Negative (NEGATIVE) Urine Ketones 3+ (NEGATIVE) H Urine Occult Blood Negative (NEGATIVE) Urine Nitrite Negative (NEGATIVE) Urine Bilirubin Negative (NEGATIVE) Urine Urobilinogen Normal MG/DL (0.0-1.0) Urine Leukocyte Esterase Negative (NEGATIVE) Urine RBC 0-2 /HPF (0 - 0) H Urine WBC 0-2 /HPF (0 - 0) Urine Squamous Epithelial Cells None /LPF (NONE/OCC) Urine Bacteria None /HPF (NONE) Urine Random Sodium 52 mmol/L (20-110) White Blood Count 8.8 K/UL (4.8-10.8) Red Blood Count 6.88 M/UL (4.70-6.10) H Hemoglobin 13.9 G/DL (14.2-18.0) L Hematocrit 45.8 % (42.0-52.0) Mean Corpuscular Volume 67 FL (80-99) L Mean Corpuscular Hemoglobin 20.2 PG (27.0-31.0) L Mean Corpuscular Hemoglobin Concent 30.3 G/DL (32.0-36.0) L Red Cell Distribution Width 12.5 % (11.6-14.8) Platelet Count 254 K/UL (150-450) Mean Platelet Volume 8.1 FL (6.5-10.1) Neutrophils (%) (Auto) % (45.0-75.0) Lymphocytes (%) (Auto) % (20.0-45.0) Monocytes (%) (Auto) % (1.0-10.0) Eosinophils (%) (Auto) % (0.0-3.0) Basophils (%) (Auto) % (0.0-2.0) Differential Total Cells Counted 100 Neutrophils % (Manual) 90 % (45-75) H Lymphocytes % (Manual) 9 % (20-45) L Monocytes % (Manual) 1 % (1-10) Eosinophils % (Manual) 0 % (0-3) Basophils % (Manual) 0 % (0-2) Band Neutrophils 0 % (0-8) Platelet Estimate Adequate Platelet Morphology Normal Hypochromasia 1+ Anisocytosis 1+ Microcytosis 3+ Sodium Level 138 MMOL/L (136-145) Potassium Level 4.1 MMOL/L (3.5-5.1) Chloride Level 101 MMOL/L (98-107) Carbon Dioxide Level 24 MMOL/L (21-32) Anion Gap 13 mmol/L (5-15) Blood Urea Nitrogen 20 mg/dL (7-18) H Creatinine 1.4 MG/DL (0.55-1.30) H Estimat Glomerular Filtration Rate 52.8 mL/min (>60) Glucose Level 163 MG/DL (74-106) H Uric Acid 9.4 MG/DL (2.6-7.2) H Calcium Level 9.1 MG/DL (8.5-10.1) Phosphorus Level 3.4 MG/DL (2.5-4.9) Magnesium Level 1.9 MG/DL (1.8-2.4) Iron Level 37 ug/dL (50-175) L Total Iron Binding Capacity 285 ug/dL (250-450) Percent Iron Saturation 13 % (15-50) L Unsaturated Iron Binding 248 ug/dL (112-346) Ferritin 141 NG/ML (8-388) Total Bilirubin 0.6 MG/DL (0.2-1.0) Aspartate Amino Transf (AST/SGOT) 12 U/L (15-37) L Alanine Aminotransferase (ALT/SGPT) 44 U/L (12-78) Alkaline Phosphatase 86 U/L (46-116) C-Reactive Protein, Quantitative 2.5 mg/dL (0.00-0.90) H Pro-B-Type Natriuretic Peptide 41 pg/mL (0-125) Total Protein 7.8 G/DL (6.4-8.2) Albumin 3.9 G/DL (3.4-5.0) Globulin 3.9 g/dL Albumin/Globulin Ratio 1.0 (1.0-2.7) Triglycerides Level 25 MG/DL (30-150) L Cholesterol Level 203 MG/DL (< 200) H LDL Cholesterol 135 mg/dL (<100) H HDL Cholesterol 65 MG/DL (40-60) H Cholesterol/HDL Ratio 3.1 (3.3-4.4) L Vitamin B12 Level 502 PG/ML (193-986) Folate 35.7 NG/ML (8.6-58.9) Thyroid Stimulating Hormone (TSH) 0.362 uiU/mL (0.358-3.740) Objective GENERAL: The patient is a very pleasant 52-year-old gentleman, in no apparent respiratory distress. Alert and oriented x4, in mild respiratory distress. Use of accessory muscle of respiration. HEENT: Atraumatic and normocephalic. Anicteric. Pupils are equal, round, and reactive to light and accommodation. Extraocular muscles are intact. NECK: JVP less than 5 cm. No carotid bruit. Carotid upstrokes 2+ bilaterally. CARDIOVASCULAR: Normal S1, S2. Regular rate and rhythm. No murmurs, gallops, or rubs. PMI is at fourth intercostal space at the midclavicular line. LUNGS: Diminished breath sounds with expiratory rhonchi and prolonged expiratory phase. ABDOMEN: Soft, nontender, and nondistended. No hepatosplenomegaly. Positive bowel sounds. EXTREMITIES: No evidence of edema, clubbing, or cyanosis. Sai Zavaleta MD May 22, 2018 16:47
[2018-05-22 20:00] VITALS: BP 138/58
[2018-05-22] MEDS: Tamsulosin 0.4mg cap ORAL SCH (20:33)
--- NOTE | 2018-05-22 21:13 | Cardiology Progress Note ---
Assessment/Plan Assessment/Plan 1. Shortness of breath due to acute exacerbation of COPD, on steroids, nebulizer and oxygen, hx of tob use. 2D echo shows normal LV systolic fxn, grade I LVDD with normal intracardiac filling pressure. 2. Hx of SSS, status post dual-chamber pacemaker implantation with recent interrogation of the device at outside clinic. Currently intrinsic activity. 3. CKD 4. Dyslipidemia, target LDL <100 in view of CKD and high risk for CAD. Start atorvastatin. Subjective Subjective Still mild SOB. Tolerated steroids well although reports to have seen rash over the arms. Sinus tach at 106. Objective Last 24 Hour Vital Signs Date Time Temp Pulse Resp B/P (MAP) Pulse Ox O2 Delivery O2 Flow Rate FiO2 05/22/18 20:00 98.0 106 20 138/58 (84) 98 98.0 05/22/18 19:37 103 18 97 Nasal Cannula 2.0 28 05/22/18 19:27 97 20 95 Nasal Cannula 2.0 28 05/22/18 19:25 95 Nasal Cannula 2.0 28 05/22/18 19:25 Nasal Cannula 2.0 28 05/22/18 16:00 101 05/22/18 16:00 Nasal Cannula 2.0 05/22/18 16:00 98.1 98 17 127/65 (85) 94 98.1 05/22/18 13:32 99 16 99 Nasal Cannula 2.0 28 05/22/18 13:22 100 16 98 Nasal Cannula 2.0 28 05/22/18 12:00 97.5 110 24 123/60 (81) 92 97.5 05/22/18 12:00 119 05/22/18 12:00 Nasal Cannula 2.0 05/22/18 08:24 90 05/22/18 08:00 98.0 101 22 112/73 (86) 95 98.0 05/22/18 08:00 Nasal Cannula 2.0 05/22/18 07:59 93 16 99 Nasal Cannula 2.0 28 05/22/18 07:49 80 16 95 Nasal Cannula 2.0 28 05/22/18 07:49 Nasal Cannula 2.0 28 05/22/18 07:49 95 Nasal Cannula 2.0 21 05/22/18 04:00 Nasal Cannula 2.0 05/22/18 04:00 95 05/22/18 04:00 98.0 97 20 116/61 (79) 100 98.0 05/22/18 01:42 88 20 100 Nasal Cannula 2.0 28 05/22/18 01:35 80 20 95 Nasal Cannula 2.0 28 05/22/18 00:00 Nasal Cannula 2.0 05/22/18 00:00 94 05/22/18 00:00 98.4 99 20 136/73 (94) 99 98.4 Intake and Output 05/21/18 05/22/18 19:00 07:00 Intake Total 749 ml 720 ml Output Total 1050 ml Balance -301 ml 720 ml IV Total 749 ml 720 ml Output Urine Total 1050 ml # Voids 4 3 2D Echo: LVEF at 65%, RAP ~10 mmHg, Mild SAMUEL, RVSP 38 mmHg, grade I LVDD Laboratory Tests Test 05/22/18 04:00 05/22/18 04:28 Urine Random Sodium 52 mmol/L (20-110) White Blood Count 8.8 K/UL (4.8-10.8) Red Blood Count 6.88 M/UL (4.70-6.10) H Hemoglobin 13.9 G/DL (14.2-18.0) L Hematocrit 45.8 % (42.0-52.0) Mean Corpuscular Volume 67 FL (80-99) L Mean Corpuscular Hemoglobin 20.2 PG (27.0-31.0) L Mean Corpuscular Hemoglobin Concent 30.3 G/DL (32.0-36.0) L Red Cell Distribution Width 12.5 % (11.6-14.8) Platelet Count 254 K/UL (150-450) Mean Platelet Volume 8.1 FL (6.5-10.1) Neutrophils (%) (Auto) % (45.0-75.0) Lymphocytes (%) (Auto) % (20.0-45.0) Monocytes (%) (Auto) % (1.0-10.0) Eosinophils (%) (Auto) % (0.0-3.0) Basophils (%) (Auto) % (0.0-2.0) Differential Total Cells Counted 100 Neutrophils % (Manual) 90 % (45-75) H Lymphocytes % (Manual) 9 % (20-45) L Monocytes % (Manual) 1 % (1-10) Eosinophils % (Manual) 0 % (0-3) Basophils % (Manual) 0 % (0-2) Band Neutrophils 0 % (0-8) Platelet Estimate Adequate Platelet Morphology Normal Hypochromasia 1+ Anisocytosis 1+ Microcytosis 3+ Sodium Level 138 MMOL/L (136-145) Potassium Level 4.1 MMOL/L (3.5-5.1) Chloride Level 101 MMOL/L (98-107) Carbon Dioxide Level 24 MMOL/L (21-32) Anion Gap 13 mmol/L (5-15) Blood Urea Nitrogen 20 mg/dL (7-18) H Creatinine 1.4 MG/DL (0.55-1.30) H Estimat Glomerular Filtration Rate 52.8 mL/min (>60) Glucose Level 163 MG/DL (74-106) H Uric Acid 9.4 MG/DL (2.6-7.2) H Calcium Level 9.1 MG/DL (8.5-10.1) Phosphorus Level 3.4 MG/DL (2.5-4.9) Magnesium Level 1.9 MG/DL (1.8-2.4) Iron Level 37 ug/dL (50-175) L Total Iron Binding Capacity 285 ug/dL (250-450) Percent Iron Saturation 13 % (15-50) L Unsaturated Iron Binding 248 ug/dL (112-346) Ferritin 141 NG/ML (8-388) Total Bilirubin 0.6 MG/DL (0.2-1.0) Aspartate Amino Transf (AST/SGOT) 12 U/L (15-37) L Alanine Aminotransferase (ALT/SGPT) 44 U/L (12-78) Alkaline Phosphatase 86 U/L (46-116) C-Reactive Protein, Quantitative 2.5 mg/dL (0.00-0.90) H Pro-B-Type Natriuretic Peptide 41 pg/mL (0-125) Total Protein 7.8 G/DL (6.4-8.2) Albumin 3.9 G/DL (3.4-5.0) Globulin 3.9 g/dL Albumin/Globulin Ratio 1.0 (1.0-2.7) Triglycerides Level 25 MG/DL (30-150) L Cholesterol Level 203 MG/DL (< 200) H LDL Cholesterol 135 mg/dL (<100) H HDL Cholesterol 65 MG/DL (40-60) H Cholesterol/HDL Ratio 3.1 (3.3-4.4) L Vitamin B12 Level 502 PG/ML (193-986) Folate 35.7 NG/ML (8.6-58.9) Thyroid Stimulating Hormone (TSH) 0.362 uiU/mL (0.358-3.740) Objective HEENT: Atraumatic and normocephalic. Anicteric. Pupils are equal, round, and reactive to light and accommodation. Extraocular muscles are intact. NECK: JVP less than 5 cm. No carotid bruit. Carotid upstrokes 2+ bilaterally. CARDIOVASCULAR: Normal S1, S2. Regular rate and rhythm. No murmurs, gallops, or rubs. PMI is at fourth intercostal space at the midclavicular line. LUNGS: Diminished breath sounds with scattered expiratory rhonchi and prolonged expiratory phase. ABDOMEN: Soft, nontender, and nondistended. No hepatosplenomegaly. Positive bowel sounds. EXTREMITIES: No evidence of edema, clubbing, or cyanosis. Sai Zavaleta MD May 22, 2018 21:13
--- NOTE | 2018-05-22 21:20 | General Progress Note ---
Assessment/Plan Problem List: (1) COPD exacerbation ICD Codes: J44.1 - Chronic obstructive pulmonary disease with (acute) exacerbation SNOMED: 876653676248923 (2) Dyspnea ICD Codes: R06.00 - Dyspnea, unspecified SNOMED: 129241218 (3) Respiratory distress ICD Codes: R06.03 - Acute respiratory distress SNOMED: 237144284 (4) Pacemaker ICD Codes: Z95.0 - Presence of cardiac pacemaker SNOMED: 231108751, 739160375 Status: progressing Assessment/Plan afebrile sob is improving dyspnea pacer copd exac is improving Subjective ROS Limited/Unobtainable: Yes Allergies: Coded Allergies: ASPIRIN (Verified Allergy, Unknown, 02/26/17) CORTISONE (Verified Allergy, Unknown, 02/26/17) PEPPER (GENUS CAPSICUM) (Verified Allergy, Unknown, Shortness of Breath, ) Objective Last 24 Hour Vital Signs Date Time Temp Pulse Resp B/P (MAP) Pulse Ox O2 Delivery O2 Flow Rate FiO2 05/22/18 20:00 98.0 106 20 138/58 (84) 98 98.0 05/22/18 19:37 103 18 97 Nasal Cannula 2.0 28 05/22/18 19:27 97 20 95 Nasal Cannula 2.0 28 05/22/18 19:25 95 Nasal Cannula 2.0 28 05/22/18 19:25 Nasal Cannula 2.0 28 05/22/18 16:00 101 05/22/18 16:00 Nasal Cannula 2.0 05/22/18 16:00 98.1 98 17 127/65 (85) 94 98.1 05/22/18 13:32 99 16 99 Nasal Cannula 2.0 28 05/22/18 13:22 100 16 98 Nasal Cannula 2.0 28 05/22/18 12:00 97.5 110 24 123/60 (81) 92 97.5 05/22/18 12:00 119 05/22/18 12:00 Nasal Cannula 2.0 05/22/18 08:24 90 05/22/18 08:00 98.0 101 22 112/73 (86) 95 98.0 05/22/18 08:00 Nasal Cannula 2.0 05/22/18 07:59 93 16 99 Nasal Cannula 2.0 28 05/22/18 07:49 80 16 95 Nasal Cannula 2.0 28 05/22/18 07:49 Nasal Cannula 2.0 05/22/18 07:49 95 Nasal Cannula 2.0 05/22/18 04:00 Nasal Cannula 2.0 05/22/18 04:00 95 05/22/18 04:00 98.0 97 20 116/61 (79) 100 98.0 05/22/18 01:42 88 20 100 Nasal Cannula 2.0 05/22/18 01:35 80 20 95 Nasal Cannula 2.0 28 05/22/18 00:00 Nasal Cannula 2.0 05/22/18 00:00 94 05/22/18 00:00 98.4 99 20 136/73 (94) 99 98.4 Intake and Output 05/21/18 05/22/18 19:00 07:00 Intake Total 749 ml 720 ml Output Total 1050 ml Balance -301 ml 720 ml IV Total 749 ml 720 ml Output Urine Total 1050 ml # Voids 4 3 Laboratory Tests 05/22/18 04:00: Urine Random Sodium 52 05/22/18 04:28: White Blood Count 8.8, Red Blood Count 6.88H, Hemoglobin 13.9L, Hematocrit 45.8 , Mean Corpuscular Volume 67L, Mean Corpuscular Hemoglobin 20.2L, Mean Corpuscular Hemoglobin Concent 30.3L, Red Cell Distribution Width 12.5, Platelet Count 254, Mean Platelet Volume 8.1, Neutrophils (%) (Auto) , Lymphocytes (%) (Auto) , Monocytes (%) (Auto) , Eosinophils (%) (Auto) , Basophils (%) (Auto) , Differential Total Cells Counted 100, Neutrophils % ( Manual) 90H, Lymphocytes % (Manual) 9L, Monocytes % (Manual) 1, Eosinophils % ( Manual) 0, Basophils % (Manual) 0, Band Neutrophils 0, Platelet Estimate Adequate, Platelet Morphology Normal, Hypochromasia 1+, Anisocytosis 1+, Microcytosis 3+, Sodium Level 138, Potassium Level 4.1, Chloride Level 101, Carbon Dioxide Level 24, Anion Gap 13, Blood Urea Nitrogen 20H, Creatinine 1.4H , Estimat Glomerular Filtration Rate 52.8, Glucose Level 163H, Uric Acid 9.4H, Calcium Level 9.1, Phosphorus Level 3.4, Magnesium Level 1.9, Iron Level 37L, Total Iron Binding Capacity 285, Percent Iron Saturation 13L, Unsaturated Iron Binding 248, Ferritin 141, Total Bilirubin 0.6, Aspartate Amino Transf (AST/SGOT ) 12L, Alanine Aminotransferase (ALT/SGPT) 44, Alkaline Phosphatase 86, C- Reactive Protein, Quantitative 2.5H, Pro-B-Type Natriuretic Peptide 41, Total Protein 7.8, Albumin 3.9, Globulin 3.9, Albumin/Globulin Ratio 1.0, Triglycerides Level 25L, Cholesterol Level 203H, LDL Cholesterol 135H, HDL Cholesterol 65H, Cholesterol/HDL Ratio 3.1L, Vitamin B12 Level 502, Folate 35.7 , Thyroid Stimulating Hormone (TSH) 0.362 Height (Feet): 6 Height (Inches): 3.00 Weight (Pounds): 212 Respiratory/Chest: no respiratory distress Abdomen: soft Lee Thomas MD May 22, 2018 21:20
[2018-05-23] VITALS: BP 129/64
[2018-05-23] MEDS: Albuterol/Ipratropium 3ml neb HHN SCH ×4 (02:01→20:22)
[2018-05-23 04:00] VITALS: BP 128/68
[2018-05-23 04:22] LABS: HEMATOCRIT 42.7 % (42.0-52.0); MEAN CORPUSCULAR VOLUME 67 FL (80-99); PLATELET COUNT 243 K/UL (150-450); RED BLOOD COUNT 6.38 M/UL (4.70-6.10); RED CELL DISTRIBUTION WIDTH 12.7 % (11.6-14.8); WHITE BLOOD COUNT 15.9 K/UL (4.8-10.8)
[2018-05-23 08:00] VITALS: BP 117/69
[2018-05-23] MEDS: Solu-MEDROL 125mg Inj IVP SCH ×2 (09:40→18:39)
[2018-05-23] MEDS: Montelukast 10mg tablet ORAL SCH (09:41)
[2018-05-23] MEDS: Theophylline ER 100mg ORAL SCH ×2 (09:41→18:39)
[2018-05-23] MEDS: Azithromycin 250mg tab ORAL SCH (09:41)
[2018-05-23] MEDS: Advair 250/50 Inhaler - 14 dose INH SCH ×2 (09:49→20:21)
--- NOTE | 2018-05-23 10:02 | Nephrology Progress Note ---
Assessment/Plan Problem List: (1) Renal failure (ARF), acute on chronic Assessment: Cr 1.5 (2) Pacemaker (3) COPD exacerbation (4) Respiratory distress Assessment Exacerbation Asthma / COPD- wheezing down Pacer / EjFx well preserved Mild elevation Cr, ? CKD Plan no labs (chemistries) Higher WBC due to steroids UA U Na Noted Hydrate- change IV fluid pulmonary support Monitor renal parameters avoid nephrotoxics taper steroids? Subjective ROS Limited/Unobtainable: No Constitutional: Reports: malaise Objective Objective Last 24 Hour Vital Signs Date Time Temp Pulse Resp B/P (MAP) Pulse Ox O2 Delivery O2 Flow Rate FiO2 05/23/18 08:09 76 20 97 Nasal Cannula 2.0 28 05/23/18 07:59 Nasal Cannula 2.0 28 05/23/18 07:59 73 18 98 Nasal Cannula 2.0 28 05/23/18 07:58 98 Nasal Cannula 2.0 28 05/23/18 04:00 80 05/23/18 04:00 Nasal Cannula 2.0 05/23/18 04:00 98.2 90 20 128/68 (88) 96 98.2 05/23/18 02:10 83 18 99 Nasal Cannula 2.0 28 05/23/18 02:00 78 18 97 Nasal Cannula 2.0 28 05/23/18 00:00 Nasal Cannula 2.0 05/23/18 00:00 85 05/23/18 00:00 97.8 84 20 129/64 (85) 100 97.8 05/22/18 20:00 103 05/22/18 20:00 Nasal Cannula 2.0 05/22/18 20:00 98.0 106 20 138/58 (84) 98 98.0 05/22/18 19:37 103 18 97 Nasal Cannula 2.0 28 05/22/18 19:27 97 20 95 Nasal Cannula 2.0 28 05/22/18 19:25 95 Nasal Cannula 2.0 28 05/22/18 19:25 Nasal Cannula 2.0 28 05/22/18 16:00 101 05/22/18 16:00 Nasal Cannula 2.0 05/22/18 16:00 98.1 98 17 127/65 (85) 94 98.1 05/22/18 13:32 99 16 99 Nasal Cannula 2.0 28 05/22/18 13:22 100 16 98 Nasal Cannula 2.0 28 05/22/18 12:00 97.5 110 24 123/60 (81) 92 97.5 05/22/18 12:00 119 05/22/18 12:00 Nasal Cannula 2.0 Intake and Output 05/22/18 05/23/18 19:00 07:00 Intake Total 2863 ml 1800 ml Output Total 1400 ml 1600 ml Balance 1463 ml 200 ml Intake Oral 2240 ml 1200 ml IV Total 623 ml 600 ml Output Urine Total 1400 ml 1600 ml # Voids 4 5 Laboratory Tests 05/23/18 04:00: White Blood Count 15.9#H, Red Blood Count 6.38H, Hemoglobin 13.0L, Hematocrit 42.7, Mean Corpuscular Volume 67L, Mean Corpuscular Hemoglobin 20.5L, Mean Corpuscular Hemoglobin Concent 30.6L, Red Cell Distribution Width 12.7, Platelet Count 243, Mean Platelet Volume 7.8, Neutrophils (%) (Auto) , Lymphocytes (%) (Auto) , Monocytes (%) (Auto) , Eosinophils (%) (Auto) , Basophils (%) (Auto) , Differential Total Cells Counted 100, Neutrophils % ( Manual) 88H, Lymphocytes % (Manual) 7L, Monocytes % (Manual) 3, Eosinophils % ( Manual) 0, Basophils % (Manual) 0, Band Neutrophils 2, Platelet Estimate Adequate, Platelet Morphology Normal, Hypochromasia 1+, Anisocytosis 1+, Microcytosis 2+ Height (Feet): 6 Height (Inches): 3.00 Weight (Pounds): 215 General Appearance: no apparent distress Respiratory/Chest: other - wheezing Ian Frost MD May 23, 2018 10:02
--- NOTE | 2018-05-23 11:07 | Infectious Diseases Prog Note ---
Assessment/Plan Assessment/Plan A; COPD/Asthma exacerbation Eosinophilia Nicotine dependence Hypercapnic /hypoxemic respiratory failure Leukocytosis P: Continue Zithromax Taper steroids Subjective ROS Limited/Unobtainable: No Constitutional: Reports: no symptoms, other - doing better Respiratory: Reports: dry cough Cardiovascular: Reports: no symptoms Gastrointestinal/Abdominal: Reports: no symptoms Genitourinary: Reports: no symptoms Allergies: Coded Allergies: ASPIRIN (Verified Allergy, Unknown, 02/26/17) CORTISONE (Verified Allergy, Unknown, 02/26/17) PEPPER (GENUS CAPSICUM) (Verified Allergy, Unknown, Shortness of Breath, ) Objective Vital Signs Last 24 Hour Vital Signs Date Time Temp Pulse Resp B/P (MAP) Pulse Ox O2 Delivery O2 Flow Rate FiO2 05/23/18 08:09 76 20 97 Nasal Cannula 2.0 28 05/23/18 08:00 79 05/23/18 08:00 97.2 99 20 117/69 (85) 94 97.2 05/23/18 07:59 Nasal Cannula 2.0 05/23/18 07:59 73 18 98 Nasal Cannula 2.0 28 05/23/18 07:58 98 Nasal Cannula 2.0 28 05/23/18 04:00 80 05/23/18 04:00 Nasal Cannula 2.0 05/23/18 04:00 98.2 90 20 128/68 (88) 96 98.2 05/23/18 02:10 83 18 99 Nasal Cannula 2.0 28 05/23/18 02:00 78 18 97 Nasal Cannula 2.0 28 05/23/18 00:00 Nasal Cannula 2.0 05/23/18 00:00 85 05/23/18 00:00 97.8 84 20 129/64 (85) 100 97.8 05/22/18 20:00 103 05/22/18 20:00 Nasal Cannula 2.0 05/22/18 20:00 98.0 106 20 138/58 (84) 98 98.0 05/22/18 19:37 103 18 97 Nasal Cannula 2.0 28 05/22/18 19:27 97 20 95 Nasal Cannula 2.0 28 05/22/18 19:25 95 Nasal Cannula 2.0 28 05/22/18 19:25 Nasal Cannula 2.0 28 05/22/18 16:00 101 05/22/18 16:00 Nasal Cannula 2.0 05/22/18 16:00 98.1 98 17 127/65 (85) 94 98.1 05/22/18 13:32 99 16 99 Nasal Cannula 2.0 28 05/22/18 13:22 100 16 98 Nasal Cannula 2.0 28 05/22/18 12:00 97.5 110 24 123/60 (81) 92 97.5 05/22/18 12:00 119 05/22/18 12:00 Nasal Cannula 2.0 Height (Feet): 6 Height (Inches): 3.00 Weight (Pounds): 215 General Appearance: no acute distress HEENT: mucous membranes moist Respiratory/Chest: decreased breath sounds Cardiovascular: normal rate Abdomen: soft, non tender Extremities: no edema Neurologic/Psychiatric: alert, oriented x 3, responsive Laboratory Tests Test 05/23/18 04:00 White Blood Count 15.9 K/UL (4.8-10.8) #H Red Blood Count 6.38 M/UL (4.70-6.10) H Hemoglobin 13.0 G/DL (14.2-18.0) L Hematocrit 42.7 % (42.0-52.0) Mean Corpuscular Volume 67 FL (80-99) L Mean Corpuscular Hemoglobin 20.5 PG (27.0-31.0) L Mean Corpuscular Hemoglobin Concent 30.6 G/DL (32.0-36.0) L Red Cell Distribution Width 12.7 % (11.6-14.8) Platelet Count 243 K/UL (150-450) Mean Platelet Volume 7.8 FL (6.5-10.1) Neutrophils (%) (Auto) % (45.0-75.0) Lymphocytes (%) (Auto) % (20.0-45.0) Monocytes (%) (Auto) % (1.0-10.0) Eosinophils (%) (Auto) % (0.0-3.0) Basophils (%) (Auto) % (0.0-2.0) Differential Total Cells Counted 100 Neutrophils % (Manual) 88 % (45-75) H Lymphocytes % (Manual) 7 % (20-45) L Monocytes % (Manual) 3 % (1-10) Eosinophils % (Manual) 0 % (0-3) Basophils % (Manual) 0 % (0-2) Band Neutrophils 2 % (0-8) Platelet Estimate Adequate Platelet Morphology Normal Hypochromasia 1+ Anisocytosis 1+ Microcytosis 2+ Current Medications Medications (Trade) Dose Ordered Sig/Leno Route PRN Reason Start Time Stop Time Status Last Admin Dose Admin Acetaminophen (Tylenol) 650 mg Q6H PRN ORAL Mild Pain/Temp > 100.5 05/20/18 22:15 06/19/18 22:14 05/20/18 23:31 Albuterol/ Ipratropium (Albuterol/ Ipratropium) 3 ml Q4HRT PRN HHN Shortness of Breath 05/20/18 23:15 05/25/18 23:14 Albuterol/ Ipratropium (Albuterol/ Ipratropium) 3 ml Q6HRT HHN 05/20/18 23:15 05/25/18 23:14 05/23/18 07:59 Atorvastatin Calcium (Lipitor) 20 mg BEDTIME ORAL 05/23/18 21:00 06/22/18 20:59 Azithromycin (Zithromax) 250 mg DAILY ORAL 05/22/18 09:00 05/26/18 09:01 05/23/18 09:41 Clonidine HCl (Catapres Tab) 0.1 mg EVERY 6 HOURS PRN ORAL For High Blood Pressure 05/20/18 22:15 06/19/18 22:14 Diphenhydramine HCl (Benadryl Cream) 1 applic THREE TIMES A DAY PRN TOPIC Itching 05/21/18 10:30 06/20/18 10:29 05/22/18 07:41 Diphenhydramine HCl (Benadryl) 25 mg Q6H PRN ORAL Itching 05/22/18 08:00 06/21/18 07:59 05/22/18 22:38 Famotidine (Pepcid) 20 mg BID ORAL 05/21/18 18:00 06/20/18 17:59 05/23/18 09:41 Methylprednisolone Sodium Succinate (Solu-MEDROL) 40 mg BID IVP 05/22/18 18:00 06/20/18 13:59 05/23/18 09:40 Montelukast Sodium (Singulair) 10 mg DAILY ORAL 05/21/18 09:00 06/20/18 08:59 05/23/18 09:41 Salmeterol Xinafoate/ Fluticasone (Advair 250/50 Diskus) 1 puffs BID INH 05/21/18 18:00 06/20/18 17:59 05/23/18 09:49 Sodium Chloride 1,000 ml @ 50 mls/hr Q20H IV 05/22/18 10:30 06/21/18 10:29 05/23/18 06:03 Tamsulosin HCl (Flomax) 0.4 mg BEDTIME ORAL 05/21/18 21:00 06/20/18 20:59 05/22/18 20:33 Theophylline (Fausto-Dur) 200 mg TWICE A DAY ORAL 05/21/18 09:00 06/20/18 08:59 05/23/18 09:41 Danis Escalona MD May 23, 2018 11:07
[2018-05-23 12:00] VITALS: BP 114/68
--- NOTE | 2018-05-23 12:03 | Pulmonology Progress Note ---
Assessment/Plan Assessment/Plan Assessment/Plan Problems: (1) COPD (chronic obstructive pulmonary disease) (2) Dyspnea Assessment/Plan ASSESSMENT: The patient is a 52-year-old male smoker with a history of asthma and chronic obstructive pulmonary disease overlap syndrome, presenting with an acute exacerbation of his underlying obstructive lung disease. The patient has a stated allergy/intolerance to corticosteroids, but upon further questioning, he describes this as a rash and itching. Given his initial degree of bronchospasm and tightness, I feel that the risks of corticosteroid therapy outweighed the benefits. PROBLEM LIST: 1. Chronic obstructive pulmonary disease/asthma with acute exacerbation. 2. Possible antecedent URI or other respiratory illness. 3. Current daily smoker. 4. Sick sinus syndrome, status post pacemaker. 5. Stated history of corticosteroid intolerance. 6. Chronic kidney disease. TREATMENT PLAN: 1. Optimize pulmonary hygiene/mobilize as tolerated. 2. Continue the patient's prior pulmonary medications including Singulair, Advair, and Brody. 3. Ggyui-gbe-lfzsg and p.r.n. DuoNebs. 4. Decrease Solu-Medrol to 40 mg IV BID. and taper. 5. We will watch for corticosteroid side effects including the patient's stated side effect of itching, which we could manage most likely with topical elements or Benadryl. 6. Azithro (D2/5) 7. We will check theophylline level. 8. DVT prophylaxis with heparin subcutaneous. 9. Aspiration precautions. 10. Nicotine patch. 11. Continue to discuss abstinence from tobacco use. 12. The patient should follow up with his clinical transformation specialist, Dr. Sadi Botello as an outpatient to optimize his chronic obstructive pulmonary disease management. Subjective Allergies: Coded Allergies: ASPIRIN (Verified Allergy, Unknown, 02/26/17) CORTISONE (Verified Allergy, Unknown, 02/26/17) PEPPER (GENUS CAPSICUM) (Verified Allergy, Unknown, Shortness of Breath, ) Subjective AFVSS, stable on 2L Jacques steroids but had some itching Less SOB, cough and wheezing better, no F/C Objective Last 24 Hour Vital Signs Date Time Temp Pulse Resp B/P (MAP) Pulse Ox O2 Delivery O2 Flow Rate FiO2 05/22/18 08:24 90 05/22/18 07:59 93 16 99 Nasal Cannula 2.0 28 05/22/18 07:49 80 16 95 Nasal Cannula 2.0 28 05/22/18 07:49 Nasal Cannula 2.0 05/22/18 07:49 95 Nasal Cannula 2.0 05/22/18 04:00 Nasal Cannula 2.0 05/22/18 04:00 95 05/22/18 04:00 98.0 97 20 116/61 (79) 100 98.0 05/22/18 01:42 88 20 100 Nasal Cannula 2.0 05/22/18 01:35 80 20 95 Nasal Cannula 2.0 28 05/22/18 00:00 Nasal Cannula 2.0 05/22/18 00:00 94 05/22/18 00:00 98.4 99 20 136/73 (94) 99 98.4 05/21/18 20:10 96 20 99 Nasal Cannula 2.0 05/21/18 20:00 84 20 94 Nasal Cannula 2.0 05/21/18 20:00 98.0 91 20 118/69 (85) 99 98.0 05/21/18 20:00 Nasal Cannula 2.0 05/21/18 19:56 Nasal Cannula 2.0 28 05/21/18 19:55 94 Nasal Cannula 2.0 98 05/21/18 16:00 80 05/21/18 16:00 97.9 80 20 130/79 (96) 95 97.9 05/21/18 16:00 Nasal Cannula 2.0 05/21/18 13:39 93 20 99 Nasal Cannula 2.0 28 05/21/18 13:29 73 20 94 Nasal Cannula 2.0 28 05/21/18 12:00 97.9 66 20 113/74 (87) 95 97.9 05/21/18 12:00 71 05/21/18 12:00 Nasal Cannula 2.0 Intake and Output 05/21/18 05/22/18 19:00 07:00 Intake Total 749 ml 720 ml Output Total 1050 ml Balance -301 ml 720 ml Intake IV Total 749 ml 720 ml Output Urine Total 1050 ml # Voids 4 3 General Appearance: WD/WN, no acute distress HEENT: normocephalic, atraumatic, anicteric, mucous membranes moist Respiratory/Chest: chest wall non-tender, no respiratory distress, no accessory muscle use, expiratory wheezing Cardiovascular: normal peripheral pulses, normal rate, regular rhythm Abdomen: normal bowel sounds, soft, non tender, no organomegaly, non distended Extremities: no cyanosis, no clubbing, no edema Laboratory Tests 05/21/18 18:10: Urine Color Pale yellow, Urine Appearance Clear, Urine pH 6, Urine Specific [place] 1.010, Urine Protein Negative, Urine Glucose (UA) Negative, Urine Ketones 3+H, Urine Occult Blood Negative, Urine Nitrite Negative, Urine Bilirubin Negative, Urine Urobilinogen Normal, Urine Leukocyte Esterase Negative , Urine RBC 0-2H, Urine WBC 0-2, Urine Squamous Epithelial Cells None, Urine Bacteria None 05/22/18 04:00: Urine Random Sodium 52 05/22/18 04:28: White Blood Count 8.8, Red Blood Count 6.88H, Hemoglobin 13.9L, Hematocrit 45.8 , Mean Corpuscular Volume 67L, Mean Corpuscular Hemoglobin 20.2L, Mean Corpuscular Hemoglobin Concent 30.3L, Red Cell Distribution Width 12.5, Platelet Count 254, Mean Platelet Volume 8.1, Neutrophils (%) (Auto) , Lymphocytes (%) (Auto) , Monocytes (%) (Auto) , Eosinophils (%) (Auto) , Basophils (%) (Auto) , Differential Total Cells Counted 100, Neutrophils % ( Manual) 90H, Lymphocytes % (Manual) 9L, Monocytes % (Manual) 1, Eosinophils % ( Manual) 0, Basophils % (Manual) 0, Band Neutrophils 0, Platelet Estimate Adequate, Platelet Morphology Normal, Hypochromasia 1+, Anisocytosis 1+, Microcytosis 3+, Sodium Level 138, Potassium Level 4.1, Chloride Level 101, Carbon Dioxide Level 24, Anion Gap 13, Blood Urea Nitrogen 20H, Creatinine 1.4H , Estimat Glomerular Filtration Rate 52.8, Glucose Level 163H, Uric Acid 9.4H, Calcium Level 9.1, Phosphorus Level 3.4, Magnesium Level 1.9, Iron Level 37L, Total Iron Binding Capacity 285, Percent Iron Saturation 13L, Unsaturated Iron Binding 248, Ferritin 141, Total Bilirubin 0.6, Aspartate Amino Transf (AST/SGOT ) 12L, Alanine Aminotransferase (ALT/SGPT) 44, Alkaline Phosphatase 86, C- Reactive Protein, Quantitative 2.5H, Pro-B-Type Natriuretic Peptide 41, Total Protein 7.8, Albumin 3.9, Globulin 3.9, Albumin/Globulin Ratio 1.0, Triglycerides Level 25L, Cholesterol Level 203H, LDL Cholesterol 135H, HDL Cholesterol 65H, Cholesterol/HDL Ratio 3.1L, Vitamin B12 Level 502, Folate 35.7 , Thyroid Stimulating Hormone (TSH) 0.362 Current Medications Medications (Trade) Dose Ordered Sig/Leno Route PRN Reason Start Time Stop Time Status Last Admin Dose Admin Acetaminophen (Tylenol) 650 mg Q6H PRN ORAL Mild Pain/Temp > 100.5 05/20/18 22:15 06/19/18 22:14 05/20/18 23:31 Albuterol/ Ipratropium (Albuterol/ Ipratropium) 3 ml Q4HRT PRN HHN Shortness of Breath 05/20/18 23:15 05/25/18 23:14 Albuterol/ Ipratropium (Albuterol/ Ipratropium) 3 ml Q6HRT HHN 05/20/18 23:15 05/25/18 23:14 05/22/18 07:54 Azithromycin (Zithromax) 250 mg DAILY ORAL 05/22/18 09:00 05/26/18 09:01 05/22/18 08:52 Clonidine HCl (Catapres Tab) 0.1 mg EVERY 6 HOURS PRN ORAL For High Blood Pressure 05/20/18 22:15 06/19/18 22:14 Diphenhydramine HCl (Benadryl Cream) 1 applic THREE TIMES A DAY PRN TOPIC Itching 05/21/18 10:30 06/20/18 10:29 05/22/18 07:41 Diphenhydramine HCl (Benadryl) 25 mg Q6H PRN ORAL Itching 05/22/18 08:00 06/21/18 07:59 05/22/18 08:53 Famotidine (Pepcid) 20 mg BID ORAL 05/21/18 18:00 06/20/18 17:59 05/22/18 08:52 Methylprednisolone Sodium Succinate (Solu-MEDROL) 60 mg EVERY 8 HOURS IVP 05/21/18 14:00 06/20/18 13:59 05/22/18 05:21 Montelukast Sodium (Singulair) 10 mg DAILY ORAL 05/21/18 09:00 06/20/18 08:59 05/22/18 08:52 Salmeterol Xinafoate/ Fluticasone (Advair 250/50 Diskus) 1 puffs BID INH 05/21/18 18:00 06/20/18 17:59 Sodium Chloride 1,000 ml @ 60 mls/hr [id number] IV 05/20/18 22:15 06/19/18 22:14 05/22/18 05:21 Tamsulosin HCl (Flomax) 0.4 mg BEDTIME ORAL 05/21/18 21:00 06/20/18 20:59 05/21/18 20:33 Theophylline (Fausto-Dur) 200 mg TWICE A DAY ORAL 05/21/18 09:00 06/20/18 08:59 05/22/18 08:52 Subjective ROS Limited/Unobtainable: No Allergies: Coded Allergies: ASPIRIN (Verified Allergy, Unknown, 02/26/17) CORTISONE (Verified Allergy, Unknown, 02/26/17) PEPPER (GENUS CAPSICUM) (Verified Allergy, Unknown, Shortness of Breath, ) Objective Last 24 Hour Vital Signs Date Time Temp Pulse Resp B/P (MAP) Pulse Ox O2 Delivery O2 Flow Rate FiO2 05/23/18 08:09 76 20 97 Nasal Cannula 2.0 28 05/23/18 08:00 79 05/23/18 08:00 97.2 99 20 117/69 (85) 94 97.2 05/23/18 08:00 Nasal Cannula 2.0 05/23/18 07:59 Nasal Cannula 2.0 28 05/23/18 07:59 73 18 98 Nasal Cannula 2.0 28 05/23/18 07:58 98 Nasal Cannula 2.0 28 05/23/18 04:00 80 05/23/18 04:00 Nasal Cannula 2.0 05/23/18 04:00 98.2 90 20 128/68 (88) 96 98.2 05/23/18 02:10 83 18 99 Nasal Cannula 2.0 28 05/23/18 02:00 78 18 97 Nasal Cannula 2.0 28 05/23/18 00:00 Nasal Cannula 2.0 05/23/18 00:00 85 05/23/18 00:00 97.8 84 20 129/64 (85) 100 97.8 05/22/18 20:00 103 05/22/18 20:00 Nasal Cannula 2.0 05/22/18 20:00 98.0 106 20 138/58 (84) 98 98.0 05/22/18 19:37 103 18 97 Nasal Cannula 2.0 28 05/22/18 19:27 97 20 95 Nasal Cannula 2.0 28 05/22/18 19:25 95 Nasal Cannula 2.0 28 05/22/18 19:25 Nasal Cannula 2.0 28 05/22/18 16:00 101 05/22/18 16:00 Nasal Cannula 2.0 05/22/18 16:00 98.1 98 17 127/65 (85) 94 98.1 05/22/18 13:32 99 16 99 Nasal Cannula 2.0 28 05/22/18 13:22 100 16 98 Nasal Cannula 2.0 28 Intake and Output 05/22/18 05/23/18 19:00 07:00 Intake Total 2863 ml 1800 ml Output Total 1400 ml 1600 ml Balance 1463 ml 200 ml Intake Oral 2240 ml 1200 ml IV Total 623 ml 600 ml Output Urine Total 1400 ml 1600 ml # Voids 4 5 Microbiology Date/Time Source Procedure Growth Status 05/23/18 06:04 Sputum Induced Gram Stain - Final Resulted 05/23/18 06:04 Sputum Induced Sputum Culture Pending Resulted Laboratory Tests 05/23/18 04:00: White Blood Count 15.9#H, Red Blood Count 6.38H, Hemoglobin 13.0L, Hematocrit 42.7, Mean Corpuscular Volume 67L, Mean Corpuscular Hemoglobin 20.5L, Mean Corpuscular Hemoglobin Concent 30.6L, Red Cell Distribution Width 12.7, Platelet Count 243, Mean Platelet Volume 7.8, Neutrophils (%) (Auto) , Lymphocytes (%) (Auto) , Monocytes (%) (Auto) , Eosinophils (%) (Auto) , Basophils (%) (Auto) , Differential Total Cells Counted 100, Neutrophils % ( Manual) 88H, Lymphocytes % (Manual) 7L, Monocytes % (Manual) 3, Eosinophils % ( Manual) 0, Basophils % (Manual) 0, Band Neutrophils 2, Platelet Estimate Adequate, Platelet Morphology Normal, Hypochromasia 1+, Anisocytosis 1+, Microcytosis 2+ Current Medications Medications (Trade) Dose Ordered Sig/Leno Route PRN Reason Start Time Stop Time Status Last Admin Dose Admin Acetaminophen (Tylenol) 650 mg Q6H PRN ORAL Mild Pain/Temp > 100.5 05/20/18 22:15 06/19/18 22:14 05/20/18 23:31 Albuterol/ Ipratropium (Albuterol/ Ipratropium) 3 ml Q4HRT PRN HHN Shortness of Breath 05/20/18 23:15 05/25/18 23:14 Albuterol/ Ipratropium (Albuterol/ Ipratropium) 3 ml Q6HRT HHN 05/20/18 23:15 05/25/18 23:14 05/23/18 07:59 Atorvastatin Calcium (Lipitor) 20 mg BEDTIME ORAL 05/23/18 21:00 06/22/18 20:59 Azithromycin (Zithromax) 250 mg DAILY ORAL 05/22/18 09:00 05/26/18 09:01 05/23/18 09:41 Clonidine HCl (Catapres Tab) 0.1 mg EVERY 6 HOURS PRN ORAL For High Blood Pressure 05/20/18 22:15 06/19/18 22:14 Diphenhydramine HCl (Benadryl Cream) 1 applic THREE TIMES A DAY PRN TOPIC Itching 05/21/18 10:30 06/20/18 10:29 05/22/18 07:41 Diphenhydramine HCl (Benadryl) 25 mg Q6H PRN ORAL Itching 05/22/18 08:00 06/21/18 07:59 05/22/18 22:38 Famotidine (Pepcid) 20 mg BID ORAL 05/21/18 18:00 06/20/18 17:59 05/23/18 09:41 Methylprednisolone Sodium Succinate (Solu-MEDROL) 40 mg BID IVP 05/22/18 18:00 06/20/18 13:59 05/23/18 09:40 Montelukast Sodium (Singulair) 10 mg DAILY ORAL 05/21/18 09:00 06/20/18 08:59 05/23/18 09:41 Salmeterol Xinafoate/ Fluticasone (Advair 250/50 Diskus) 1 puffs BID INH 05/21/18 18:00 06/20/18 17:59 05/23/18 09:49 Sodium Chloride 1,000 ml @ 50 mls/hr Q20H IV 05/22/18 10:30 06/21/18 10:29 05/23/18 06:03 Tamsulosin HCl (Flomax) 0.4 mg BEDTIME ORAL 05/21/18 21:00 06/20/18 20:59 05/22/18 20:33 Theophylline (Fausto-Dur) 200 mg TWICE A DAY ORAL 05/21/18 09:00 06/20/18 08:59 05/23/18 09:41 Gus Solitario MD May 23, 2018 12:03
--- NOTE | 2018-05-23 12:10 | General Progress Note ---
Assessment/Plan Problem List: (1) COPD exacerbation ICD Codes: J44.1 - Chronic obstructive pulmonary disease with (acute) exacerbation SNOMED: 921004976485927 (2) Dyspnea ICD Codes: R06.00 - Dyspnea, unspecified SNOMED: 031189329 (3) Respiratory distress ICD Codes: R06.03 - Acute respiratory distress SNOMED: 547966712 (4) Pacemaker ICD Codes: Z95.0 - Presence of cardiac pacemaker SNOMED: 569207687, 781392408 Status: progressing Assessment/Plan STERIOD per pulmonary afebrile reviewed chart and labs pacer copd exac is improving Subjective Respiratory: Reports: shortness of breath Allergies: Coded Allergies: ASPIRIN (Verified Allergy, Unknown, 02/26/17) CORTISONE (Verified Allergy, Unknown, 02/26/17) PEPPER (GENUS CAPSICUM) (Verified Allergy, Unknown, Shortness of Breath, ) Objective Last 24 Hour Vital Signs Date Time Temp Pulse Resp B/P (MAP) Pulse Ox O2 Delivery O2 Flow Rate FiO2 05/23/18 08:09 76 20 97 Nasal Cannula 2.0 28 05/23/18 08:00 79 05/23/18 08:00 97.2 99 20 117/69 (85) 94 97.2 05/23/18 08:00 Nasal Cannula 2.0 05/23/18 07:59 Nasal Cannula 2.0 28 05/23/18 07:59 73 18 98 Nasal Cannula 2.0 28 05/23/18 07:58 98 Nasal Cannula 2.0 28 05/23/18 04:00 80 05/23/18 04:00 Nasal Cannula 2.0 05/23/18 04:00 98.2 90 20 128/68 (88) 96 98.2 05/23/18 02:10 83 18 99 Nasal Cannula 2.0 28 05/23/18 02:00 78 18 97 Nasal Cannula 2.0 28 05/23/18 00:00 Nasal Cannula 2.0 05/23/18 00:00 85 05/23/18 00:00 97.8 84 20 129/64 (85) 100 97.8 05/22/18 20:00 103 05/22/18 20:00 Nasal Cannula 2.0 05/22/18 20:00 98.0 106 20 138/58 (84) 98 98.0 05/22/18 19:37 103 18 97 Nasal Cannula 2.0 28 05/22/18 19:27 97 20 95 Nasal Cannula 2.0 28 05/22/18 19:25 95 Nasal Cannula 2.0 28 05/22/18 19:25 Nasal Cannula 2.0 28 05/22/18 16:00 101 05/22/18 16:00 Nasal Cannula 2.0 05/22/18 16:00 98.1 98 17 127/65 (85) 94 98.1 05/22/18 13:32 99 16 99 Nasal Cannula 2.0 28 05/22/18 13:22 100 16 98 Nasal Cannula 2.0 28 Intake and Output 05/22/18 05/23/18 19:00 07:00 Intake Total 2863 ml 1800 ml Output Total 1400 ml 1600 ml Balance 1463 ml 200 ml Intake Oral 2240 ml 1200 ml IV Total 623 ml 600 ml Output Urine Total 1400 ml 1600 ml # Voids 4 5 Laboratory Tests 05/23/18 04:00: White Blood Count 15.9#H, Red Blood Count 6.38H, Hemoglobin 13.0L, Hematocrit 42.7, Mean Corpuscular Volume 67L, Mean Corpuscular Hemoglobin 20.5L, Mean Corpuscular Hemoglobin Concent 30.6L, Red Cell Distribution Width 12.7, Platelet Count 243, Mean Platelet Volume 7.8, Neutrophils (%) (Auto) , Lymphocytes (%) (Auto) , Monocytes (%) (Auto) , Eosinophils (%) (Auto) , Basophils (%) (Auto) , Differential Total Cells Counted 100, Neutrophils % ( Manual) 88H, Lymphocytes % (Manual) 7L, Monocytes % (Manual) 3, Eosinophils % ( Manual) 0, Basophils % (Manual) 0, Band Neutrophils 2, Platelet Estimate Adequate, Platelet Morphology Normal, Hypochromasia 1+, Anisocytosis 1+, Microcytosis 2+ Height (Feet): 6 Height (Inches): 3.00 Weight (Pounds): 215 Cardiovascular: regular rhythm Respiratory/Chest: lungs clear Abdomen: soft Lee Thomas MD May 23, 2018 12:10
[2018-05-23 16:00] VITALS: BP_SYST 126; BP_SYST 139; BP_DIAS 64; BP_DIAS 73
[2018-05-23 20:00] VITALS: BP 137/66
[2018-05-23] MEDS ORDERED: Atorvastatin 20mg tab ORAL SCH (21:00)
[2018-05-23] MEDS: Tamsulosin 0.4mg cap ORAL SCH (21:14)
[2018-05-23] MEDS ORDERED: Zolpidem 5mg tab ORAL PRN (22:30)
[2018-05-23] MEDS ORDERED: Albuterol/Ipratropium 3ml neb HHN PRN (23:00)
--- NOTE | 2018-05-23 23:51 | Cardiology Progress Note ---
Assessment/Plan Assessment/Plan 1. Shortness of breath due to acute exacerbation of COPD, on steroids, nebulizer and oxygen, hx of tob use. 2D echo shows normal LV systolic fxn, grade I LVDD with normal intracardiac filling pressure. 2. Hx of SSS, status post dual-chamber pacemaker implantation with recent interrogation of the device at outside clinic. Currently intrinsic activity. 3. CKD with creat at 1.4 4. Dyslipidemia, target LDL <100 in view of CKD, high risk for CAD. Continue atorvastatin. Subjective Subjective No cardiac events. Sinus rhythm at 92. Objective Last 24 Hour Vital Signs Date Time Temp Pulse Resp B/P (MAP) Pulse Ox O2 Delivery O2 Flow Rate FiO2 05/23/18 20:32 92 18 99 Nasal Cannula 2.0 28 05/23/18 20:22 90 18 97 Nasal Cannula 2.0 28 05/23/18 20:20 97 Nasal Cannula 2.0 28 05/23/18 20:20 Nasal Cannula 2.0 28 05/23/18 20:00 97.7 89 22 137/66 (89) 97 97.7 05/23/18 20:00 Nasal Cannula 2.0 05/23/18 16:00 99 05/23/18 16:00 97.5 86 20 126/73 (90) 95 97.5 05/23/18 16:00 96.6 80 20 139/64 (89) 90 96.6 05/23/18 16:00 Nasal Cannula 2.0 05/23/18 14:39 74 18 96 Nasal Cannula 2.0 28 05/23/18 14:29 71 18 95 Nasal Cannula 2.0 28 05/23/18 12:00 Nasal Cannula 2.0 05/23/18 12:00 97.2 70 20 114/68 (83) 95 97.2 05/23/18 12:00 80 05/23/18 08:09 76 20 97 Nasal Cannula 2.0 28 05/23/18 08:00 79 05/23/18 08:00 97.2 99 20 117/69 (85) 94 97.2 05/23/18 08:00 Nasal Cannula 2.0 05/23/18 07:59 Nasal Cannula 2.0 28 05/23/18 07:59 73 18 98 Nasal Cannula 2.0 28 05/23/18 07:58 98 Nasal Cannula 2.0 28 05/23/18 04:00 80 05/23/18 04:00 Nasal Cannula 2.0 05/23/18 04:00 98.2 90 20 128/68 (88) 96 98.2 05/23/18 02:10 83 18 99 Nasal Cannula 2.0 28 05/23/18 02:00 78 18 97 Nasal Cannula 2.0 28 05/23/18 00:00 Nasal Cannula 2.0 05/23/18 00:00 85 05/23/18 00:00 97.8 84 20 129/64 (85) 100 97.8 Intake and Output 05/22/18 05/23/18 19:00 07:00 Intake Total 2863 ml 1800 ml Output Total 1400 ml 1600 ml Balance 1463 ml 200 ml Intake Oral 2240 ml 1200 ml IV Total 623 ml 600 ml Output Urine Total 1400 ml 1600 ml # Voids 4 5 2D Echo: LVEF at 65%, RAP ~10 mmHg, Mild SAMUEL, RVSP 38 mmHg, grade I LVDD Laboratory Tests Test 05/23/18 04:00 White Blood Count 15.9 K/UL (4.8-10.8) #H Red Blood Count 6.38 M/UL (4.70-6.10) H Hemoglobin 13.0 G/DL (14.2-18.0) L Hematocrit 42.7 % (42.0-52.0) Mean Corpuscular Volume 67 FL (80-99) L Mean Corpuscular Hemoglobin 20.5 PG (27.0-31.0) L Mean Corpuscular Hemoglobin Concent 30.6 G/DL (32.0-36.0) L Red Cell Distribution Width 12.7 % (11.6-14.8) Platelet Count 243 K/UL (150-450) Mean Platelet Volume 7.8 FL (6.5-10.1) Neutrophils (%) (Auto) % (45.0-75.0) Lymphocytes (%) (Auto) % (20.0-45.0) Monocytes (%) (Auto) % (1.0-10.0) Eosinophils (%) (Auto) % (0.0-3.0) Basophils (%) (Auto) % (0.0-2.0) Differential Total Cells Counted 100 Neutrophils % (Manual) 88 % (45-75) H Lymphocytes % (Manual) 7 % (20-45) L Monocytes % (Manual) 3 % (1-10) Eosinophils % (Manual) 0 % (0-3) Basophils % (Manual) 0 % (0-2) Band Neutrophils 2 % (0-8) Platelet Estimate Adequate Platelet Morphology Normal Hypochromasia 1+ Anisocytosis 1+ Microcytosis 2+ Microbiology Date/Time Source Procedure Growth Status 05/23/18 06:04 Sputum Induced Gram Stain - Final Resulted 05/23/18 06:04 Sputum Induced Sputum Culture Pending Resulted Objective HEENT: Atraumatic and normocephalic. Anicteric. Pupils are equal, round, and reactive to light and accommodation. Extraocular muscles are intact. NECK: JVP less than 5 cm. No carotid bruit. Carotid upstrokes 2+ bilaterally. CARDIOVASCULAR: Normal S1, S2. Regular rate and rhythm. No murmurs, gallops, or rubs. PMI is at fourth intercostal space at the midclavicular line. LUNGS: Diminished breath sounds with scattered expiratory rhonchi and prolonged expiratory phase. ABDOMEN: Soft, nontender, and nondistended. No hepatosplenomegaly. Positive bowel sounds. EXTREMITIES: No evidence of edema, clubbing, or cyanosis. Sai Zavaleta MD May 23, 2018 23:51
[2018-05-24] VITALS: BP 137/71
[2018-05-24] MEDS: Albuterol/Ipratropium 3ml neb HHN SCH ×2 (01:40→07:46)
[2018-05-24 04:00] VITALS: BP 129/68
[2018-05-24 06:19] LABS: BASOPHILS % (AUTO) 0.2 % (0.0-2.0); EOSINOPHILS % (AUTO) 0.1 % (0.0-3.0); HEMATOCRIT 39.7 % (42.0-52.0); HEMOGLOBIN 12.5 G/DL (14.2-18.0); LYMPHOCYTES % (AUTO) 12.3 % (20.0-45.0); MEAN CORPUSCULAR VOLUME 67 FL (80-99); MONOCYTES % (AUTO) 3.2 % (1.0-10.0); NEUTROPHILS % (AUTO) 84.2 % (45.0-75.0); PLATELET COUNT 237 K/UL (150-450); RED BLOOD COUNT 5.91 M/UL (4.70-6.10); RED CELL DISTRIBUTION WIDTH 12.5 % (11.6-14.8); WHITE BLOOD COUNT 12.2 K/UL (4.8-10.8)
[2018-05-24 06:51] LABS: ALANINE AMINOTRANSFERASE 30 U/L (12-78); ALBUMIN 3.7 G/DL (3.4-5.0); ALBUMIN/GLOBULIN RATIO 1.1 (1.0-2.7); ALKALINE PHOSPHATASE 70 U/L (46-116); ANION GAP 9 mmol/L (5-15); ASPARTATE AMINO TRANSFERASE 13 U/L (15-37); BILIRUBIN,TOTAL 0.3 MG/DL (0.2-1.0); BLOOD UREA NITROGEN 18 mg/dL (7-18); CALCIUM 9.1 MG/DL (8.5-10.1); CARBON DIOXIDE 27 MMOL/L (21-32); CHLORIDE 105 MMOL/L (98-107); CREATININE 1.3 MG/DL (0.55-1.30); PHOSPHORUS 3.9 MG/DL (2.5-4.9); POTASSIUM 4.1 MMOL/L (3.5-5.1); SODIUM 141 MMOL/L (136-145)
[2018-05-24 08:00] VITALS: BP 113/72
[2018-05-24] MEDS ORDERED: Montelukast 10mg tablet ORAL SCH (09:00)
[2018-05-24] MEDS ORDERED: DiphenhydrAMINE & Zinc 28g Cream TOPIC PRN (09:00)
[2018-05-24] MEDS ORDERED: Theophylline ER 100mg ORAL SCH (09:00)
[2018-05-24] MEDS ORDERED: Azithromycin 250mg tab ORAL SCH (09:00)
--- NOTE | 2018-05-24 09:22 | Nephrology Progress Note ---
Assessment/Plan Problem List: (1) Renal failure (ARF), acute on chronic Assessment: Cr 1.5 now wnl (2) Pacemaker (3) COPD exacerbation (4) Respiratory distress Assessment Exacerbation Asthma / COPD- wheezing down Pacer / EjFx well preserved Mild elevation Cr, ? CKD, now resolved Plan Higher WBC due to steroids UA U Na Noted DC IV fluids pulmonary support Monitor renal parameters avoid nephrotoxics now off steroids ? DC planning? Subjective ROS Limited/Unobtainable: No Constitutional: Reports: other - breathing easier Objective Objective Last 24 Hour Vital Signs Date Time Temp Pulse Resp B/P (MAP) Pulse Ox O2 Delivery O2 Flow Rate FiO2 05/24/18 07:56 83 18 99 Nasal Cannula 2.0 28 05/24/18 07:46 Nasal Cannula 2.0 28 05/24/18 07:46 80 18 96 Nasal Cannula 2.0 28 05/24/18 07:46 95 Nasal Cannula 2.0 28 05/24/18 04:00 96.4 79 19 129/68 (88) 94 96.4 05/24/18 04:00 76 05/24/18 01:50 91 18 98 Nasal Cannula 2.0 28 05/24/18 01:40 86 18 96 Nasal Cannula 2.0 28 05/24/18 00:00 97.9 86 20 137/71 (93) 92 97.9 05/24/18 00:00 86 05/23/18 20:32 92 18 99 Nasal Cannula 2.0 28 05/23/18 20:22 90 18 97 Nasal Cannula 2.0 28 05/23/18 20:20 97 Nasal Cannula 2.0 28 05/23/18 20:20 Nasal Cannula 2.0 28 05/23/18 20:00 92 05/23/18 20:00 97.7 89 22 137/66 (89) 97 97.7 05/23/18 20:00 Nasal Cannula 2.0 05/23/18 16:00 99 05/23/18 16:00 97.5 86 20 126/73 (90) 95 97.5 05/23/18 16:00 96.6 80 20 139/64 (89) 90 96.6 05/23/18 16:00 Nasal Cannula 2.0 05/23/18 14:39 74 18 96 Nasal Cannula 2.0 28 05/23/18 14:29 71 18 95 Nasal Cannula 2.0 28 05/23/18 12:00 Nasal Cannula 2.0 05/23/18 12:00 97.2 70 20 114/68 (83) 95 97.2 05/23/18 12:00 80 Intake and Output 05/23/18 05/24/18 19:00 07:00 Intake Total 1630 ml 1350 ml Output Total 1651 ml 1800 ml Balance -21 ml -450 ml Intake Oral 1580 ml 1000 ml IV Total 50 ml 350 ml Output Urine Total 1650 ml 1800 ml Stool Total 1 ml # Voids 1 # Bowel Movements 1 Laboratory Tests 05/24/18 04:50: White Blood Count 12.2H, Red Blood Count 5.91, Hemoglobin 12.5L, Hematocrit 39.7L, Mean Corpuscular Volume 67L, Mean Corpuscular Hemoglobin 21.2L, Mean Corpuscular Hemoglobin Concent 31.5L, Red Cell Distribution Width 12.5, Platelet Count 237, Mean Platelet Volume 8.5, Neutrophils (%) (Auto) 84.2H, Lymphocytes (%) (Auto) 12.3L, Monocytes (%) (Auto) 3.2, Eosinophils (%) (Auto) 0.1, Basophils (%) (Auto) 0.2, Sodium Level 141, Potassium Level 4.1, Chloride Level 105, Carbon Dioxide Level 27, Anion Gap 9, Blood Urea Nitrogen 18, Creatinine 1.3, Estimat Glomerular Filtration Rate 57.5, Glucose Level 182H, Calcium Level 9.1, Phosphorus Level 3.9, Magnesium Level 2.3, Total Bilirubin 0.3, Aspartate Amino Transf (AST/SGOT) 13L, Alanine Aminotransferase (ALT/SGPT) 30, Alkaline Phosphatase 70, Total Protein 7.0, Albumin 3.7, Globulin 3.3, Albumin/Globulin Ratio 1.1 Height (Feet): 6 Height (Inches): 3.00 Weight (Pounds): 215 General Appearance: no apparent distress Ian Boykin MD May 24, 2018 09:22
--- NOTE | 2018-05-24 12:09 | General Progress Note ---
Assessment/Plan Problem List: (1) COPD exacerbation ICD Codes: J44.1 - Chronic obstructive pulmonary disease with (acute) exacerbation SNOMED: 600260153770812 (2) Dyspnea ICD Codes: R06.00 - Dyspnea, unspecified SNOMED: 278789058 (3) Respiratory distress ICD Codes: R06.03 - Acute respiratory distress SNOMED: 104064800 (4) Pacemaker ICD Codes: Z95.0 - Presence of cardiac pacemaker SNOMED: 166212365, 126496045 Status: progressing Assessment/Plan no acute events reviewed chart and labs and meds dc planning pacer copd exac is improving Subjective Respiratory: Reports: shortness of breath Allergies: Coded Allergies: ASPIRIN (Verified Allergy, Unknown, 02/26/17) CORTISONE (Verified Allergy, Unknown, 02/26/17) PEPPER (GENUS CAPSICUM) (Verified Allergy, Unknown, Shortness of Breath, ) Objective Last 24 Hour Vital Signs Date Time Temp Pulse Resp B/P (MAP) Pulse Ox O2 Delivery O2 Flow Rate FiO2 05/24/18 09:00 Nasal Cannula 2.0 05/24/18 08:00 93 05/24/18 08:00 97.4 96 21 113/72 (86) 94 97.4 05/24/18 07:56 83 18 99 Nasal Cannula 2.0 05/24/18 07:46 Nasal Cannula 2.0 28 05/24/18 07:46 80 18 96 Nasal Cannula 2.0 28 05/24/18 07:46 95 Nasal Cannula 2.0 28 05/24/18 04:00 96.4 79 19 129/68 (88) 94 96.4 05/24/18 04:00 76 05/24/18 01:50 91 18 98 Nasal Cannula 2.0 28 05/24/18 01:40 86 18 96 Nasal Cannula 2.0 28 05/24/18 00:00 97.9 86 20 137/71 (93) 92 97.9 05/24/18 00:00 86 05/23/18 20:32 92 18 99 Nasal Cannula 2.0 28 05/23/18 20:22 90 18 97 Nasal Cannula 2.0 28 05/23/18 20:20 97 Nasal Cannula 2.0 28 05/23/18 20:20 Nasal Cannula 2.0 28 05/23/18 20:00 92 05/23/18 20:00 97.7 89 22 137/66 (89) 97 97.7 05/23/18 20:00 Nasal Cannula 2.0 05/23/18 16:00 99 05/23/18 16:00 97.5 86 20 126/73 (90) 95 97.5 05/23/18 16:00 96.6 80 20 139/64 (89) 90 96.6 05/23/18 16:00 Nasal Cannula 2.0 05/23/18 14:39 74 18 96 Nasal Cannula 2.0 28 05/23/18 14:29 71 18 95 Nasal Cannula 2.0 28 Intake and Output 05/23/18 05/24/18 19:00 07:00 Intake Total 1630 ml 1350 ml Output Total 1651 ml 1800 ml Balance -21 ml -450 ml Intake Oral 1580 ml 1000 ml IV Total 50 ml 350 ml Output Urine Total 1650 ml 1800 ml Stool Total 1 ml # Voids 1 # Bowel Movements 1 Laboratory Tests 05/24/18 04:50: White Blood Count 12.2H, Red Blood Count 5.91, Hemoglobin 12.5L, Hematocrit 39.7L, Mean Corpuscular Volume 67L, Mean Corpuscular Hemoglobin 21.2L, Mean Corpuscular Hemoglobin Concent 31.5L, Red Cell Distribution Width 12.5, Platelet Count 237, Mean Platelet Volume 8.5, Neutrophils (%) (Auto) 84.2H, Lymphocytes (%) (Auto) 12.3L, Monocytes (%) (Auto) 3.2, Eosinophils (%) (Auto) 0.1, Basophils (%) (Auto) 0.2, Sodium Level 141, Potassium Level 4.1, Chloride Level 105, Carbon Dioxide Level 27, Anion Gap 9, Blood Urea Nitrogen 18, Creatinine 1.3, Estimat Glomerular Filtration Rate 57.5, Glucose Level 182H, Calcium Level 9.1, Phosphorus Level 3.9, Magnesium Level 2.3, Total Bilirubin 0.3, Aspartate Amino Transf (AST/SGOT) 13L, Alanine Aminotransferase (ALT/SGPT) 30, Alkaline Phosphatase 70, Total Protein 7.0, Albumin 3.7, Globulin 3.3, Albumin/Globulin Ratio 1.1 Height (Feet): 6 Height (Inches): 3.00 Weight (Pounds): 215 Lee Thomas MD May 24, 2018 12:09
[2018-05-24] MEDS ORDERED: Albuterol 90mcg Inhaler 8gm INH SCH (13:00)
--- NOTE | 2018-05-24 14:14 | Diagnostic Imaging Report ---
APPROVED REPORT CPT Code: 25115 Present Symptoms Shortness of breath Comments: COPD BILATERAL: Imaging reveals a patent deep venous system bilaterally. There is no evidence of thrombus within the femoral, popliteal or tibial segments. The greater saphenous veins are also within normal limits. Doppler indicates normal spontaneous flow within these segments.
[2018-05-24] MEDS ORDERED: Tamsulosin 0.4mg cap ORAL SCH (21:00)
[2018-05-24] MEDS ORDERED: Atorvastatin 20mg tab ORAL SCH (21:00)
--- NOTE | 2018-05-27 07:58 | Discharge Summary ---
Discharge Summary Discharge Summary _ DATE OF ADMISSION: 05/20/2018 DATE OF DISCHARGE: 05/24/2018 REASON FOR ADMISSION: 82 years old male with past medical history significant for COPD/asthma, hypertension , pacemaker secondary to sick sinus syndrome, chronic kidney disease ,presented to emergency department with cough, congestion , and shortness of breath. He tried inhalers at home without improvement and came to ED for evaluation. Upon evaluation patient was hypoxemic, tachycardic, tachypneic and required supplemental oxygen therapy. No fevers. Denied chest pain, ABG on 2 L of oxygen revealed hypercapnia PCO2 51. Chest x-ray revealed no acute cardiopulmonary pathology. Laboratory workup revealed no leukocytosis ,stable hemoglobin and hematocrit. Troponin negative ,proBNP 30. EKG revealed sinus tachycardia. Urinalysis revealed no evidence of UTI. BUN 18, creatinine 1.5 Patient admitted with diagnosis of respiratory distress, COPD exacerbation. CONSULTANTS: rubber boots and shoes repairer Dr. Zavaleta pulmonary Dr. Boyd ID specialist Dr. Julio César Escalona mining engineering technologist Dr. Boykin HOSPITAL COURSE: Patient admitted to telemetry floor. Hybrid Corn Breeder closely followed. Supplemental oxygen titrated to keep pulse oximetry above 90%. Pulmonary toilet with bronchodilators provided around the clock and as needed. Patient started on IV steroids which were gradually tapered down and discontinued prior to discharge . Patient started on empiric antibiotics. Sputum culture was negative. ID specialist closely followed. Theophylline and Singulair were continued. Venous duplex bilateral lower extremity revealed no evidence of DVT. DVT prophylaxis provided. Aspiration precaution maintained. Patient counseled on smoking cessation. Nicotine patch initiated. Strike Warfare/Missile Systems Officer closely followed. Echocardiogram revealed preserved ejection fraction of 60-65% and right ventricular systolic pressure of 37 consistent with mild pulmonary hypertension. Patient had grade 1 left ventricular diastolic dysfunction with normal intracardiac filling pressures. Shortness of breath was due to acute COPD exacerbation. Recent interrogation of dual-chamber pacemaker was done at the outside clinic. At the hospital he demonstrated intrinsic activity. Patient with history of dyslipidemia. Lipid panel revealed total cholesterol 203, LDL 135 . t Strike Warfare/Missile Systems Officer recommended target LDL below 100. In view of chronic kidney disease, patient at high risk for coronary artery disease. Statin was continued. Straight Knife Machine Cutter closely followed. Renal parameters and electrolytes were closely monitored. Electrolytes corrected as needed. Steroids discontinued prior to discharge. Creatinine from 1.5 down to 1.3. Straight Knife Machine Cutter recommended avoid nephrotoxic as possible. Patient clinically improved. Congestion and hypoxia resolved. Tachycardia resolved . Blood pressure stable Patient to follow-up as outpatient with his oncology specialist to optimize COPD management. Patient strongly encouraged smoking cessation. FINAL DIAGNOSES: Hypercapnic hypoxemic respiratory failure Acute COPD/asthma exacerbation Sick sinus syndrome, status post pacemaker Dyslipidemia Renal failure, acute on chronic Current smoker with nicotine dependency Possible antecedent upper respiratory infection DISCHARGE MEDICATIONS: See Medication Reconciliation list. DISCHARGE INSTRUCTIONS: Patient discharged home. Patient to follow-up with his outpatient oncology specialist within one week to optimize further COPD management. I have been assigned to dictate discharge summary for this account. I was not involved in the patient's management. Mana Sanchez NP May 27, 2018 07:58
== END 2018-05-24 14:44 | disposition home or self-care (01) | DRG 140 ==
LOC: EMR 16:40 → 2W 17:22 → EDBEDREQ 17:29 → EDBEDREQSVC 17:48 → EDBEDREQ 17:48 → 2E 05-23 17:59
DX: J44.1 Chronic obstructive pulmonary disease with (acute) exacerbation (principal); J96.91 Respiratory failure, unspecified with hypoxia; J96.92 Respiratory failure, unspecified with hypercapnia; N17.9 Acute kidney failure, unspecified; F17.200 Nicotine dependence, unspecified, uncomplicated; K21.9 Gastro-esophageal reflux disease without esophagitis; Z95.0 Presence of cardiac pacemaker; Z88.6 Allergy status to analgesic agent; Z88.8 Allergy status to other drugs, medicaments and biological substances; N18.9 Chronic kidney disease, unspecified; D72.1 Eosinophilia; E78.5 Hyperlipidemia, unspecified
CPT/HCPCS: 36415; 36600; 71045; 80048; 80053; 80061; 81001; 82550; 82553; 82607; 82728; 82746; 82803; 83540; 83550; 83690; 83735; 83880; 84100; 84300; 84443; 84484; 84550; 85007; 85025; 86140; 87070; 87205; 93005; 93306; 93970; 94640; 94664; 94760; J7620

== ENCOUNTER 2020-03-03 12:56 | Inpatient (IN) | payer MEDICARE, MEDICAID ==
[~2020-03-03] VITALS: Ht 193 cm; Wt 99.8 kg
[~2020-03-03 12:56] MED LIST changes: +ADVAIR 500-501 EACH INH; +PROAIR HFA8.5 GM INH
[2020-03-03] MEDS ORDERED: Solu-MEDROL 125mg Inj IVP ONE (13:15)
--- NOTE | 2020-03-03 13:18 | Emergency Room Report ---
History of Present Illness General Chief Complaint: Dyspnea/Respdistress Source: Patient (Hector Alcazar MD) Present Illness HPI Disclaimer: Please note that this report is being documented using DRAGON technology. This can lead to erroneous entry secondary to incorrect interpretation by the dictating instrument. HPI: 54-year-old male presents for evaluation of shortness of breath. He has a history of asthma and COPD. He has been using his albuterol, Spiriva, fluticasone and Atrovent inhalers increasingly over the past 2 weeks due to persistent shortness of breath. He notes a worsening cough and copious phlegm production over the past week. Denies fevers. He has been tested for COVID-19 twice in the past 2 weeks, both results negative, at his outpatient PMD office. Reports fatigue, decreased appetite, difficulty eating and some episodes of vomiting over the past week as well. Denies diarrhea. Denies chest pain, nasal congestion, sore throat. PMH: COPD, asthma, heart failure PSH: Pacemaker Allergies: Aspirin, cortisone, Social Hx: Denies drug or alcohol abuse, current smoker (Hector Alcazar MD) Allergies: Coded Allergies: METHYLPREDNISOLONE (Verified Allergy, Intermediate, HIVES/ITCHING, ) ASPIRIN (Verified Allergy, Unknown, 02/26/17) CORTISONE (Verified Allergy, Unknown, 02/26/17) PEPPER (GENUS CAPSICUM) (Verified Allergy, Unknown, Shortness of Breath, ) COVID-19 Screening Contact w/high risk pt: No Recent Travel to affected area: No Experienced COVID-19 symptoms?: Yes COVID-19 symptoms experienced: Shortness of Breath, Cough COVID-19 Testing performed COSMETOLOGIST APPRENTICE: Yes COVID-19 Screening: Negative COVID-19 COVID-19 Testing Source: [facility] (Hector Alcazar MD) Nursing Documentation-PMH Past Medical History: No History, Except For Hx Cardiac Problems: Yes Hx Hypertension: Yes Hx Pacemaker: Yes - Left Chest Pacemaker Hx Asthma: Yes Hx COPD: Yes Hx Cancer: No Hx Gastrointestinal Problems: Yes Hx Neurological Problems: No Hx Neurologic Surgery: No Hx Brain Shunt: No (Hector Alcazar MD) Review of Systems All Other Systems: negative except mentioned in HPI (Hector Alcazar MD) Physical Exam Vital Signs Date Time Temp Pulse Resp B/P (MAP) Pulse Ox O2 Delivery O2 Flow Rate FiO2 03/03/20 13:08 98.1 90 23 144/80 (101) 100 Room Air General: Awake and alert, appears uncomfortable HEENT: NC/AT. EOMI. Chest wall: Pacemaker palpable left side Cardiovascular: RRR. S1 and S2 normal. No murmur appreciated Resp: Tachypnea and mild increase in work of breathing. Intermittent cough. Diffuse inspiratory and expiratory wheezes bilaterally. Skin: Intact. No abrasions, laceration or rash over the exposed skin MSK: Normal tone and bulk. Moving all extremities. No obvious deformity. Neuro: Awake and alert. Mentating appropriately. (Hector Alcazar MD) Medical Decision Making Diagnostic Impression: Primary Impression: COPD (chronic obstructive pulmonary disease) Additional Impression: COPD exacerbation ER Course 54-year-old male history of COPD and asthma presents for evaluation of shortness of breath over the past 2 weeks. Differential includes was not limited to asthma exacerbation, COPD exacerbation, bronchitis, pneumonia, angina , ACS, arrhythmia to name a few. Given the patient's history of significant COPD will treat with IV steroids, nebulizer treatments. Disposition will depend on lab and imaging results as well as patient response to medications. He arrives with stable vital signs and no hypoxia. Laboratory Tests Test 03/03/20 13:25 03/03/20 14:03 White Blood Count 6.4 K/UL (4.8-10.8) Red Blood Count 6.92 M/UL (4.70-6.10) H Hemoglobin 14.4 G/DL (14.2-18.0) Hematocrit 46.4 % (42.0-52.0) Mean Corpuscular Volume 67 FL (80-99) L Mean Corpuscular Hemoglobin 20.8 PG (27.0-31.0) L Mean Corpuscular Hemoglobin Concent 31.0 G/DL (32.0-36.0) L Red Cell Distribution Width 12.8 % (11.6-14.8) Platelet Count 275 K/UL (150-450) Mean Platelet Volume 8.1 FL (6.5-10.1) Neutrophils (%) (Auto) 46.2 % (45.0-75.0) Lymphocytes (%) (Auto) 37.1 % (20.0-45.0) Monocytes (%) (Auto) 6.7 % (1.0-10.0) Eosinophils (%) (Auto) 8.3 % (0.0-3.0) H Basophils (%) (Auto) 1.7 % (0.0-2.0) Sodium Level 145 MMOL/L (136-145) Potassium Level 4.5 MMOL/L (3.5-5.1) Chloride Level 104 MMOL/L (98-107) Carbon Dioxide Level 29 MMOL/L (21-32) Anion Gap 13 mmol/L (5-15) Blood Urea Nitrogen 12 mg/dL (7-18) Creatinine 1.5 MG/DL (0.55-1.30) H Estimated Glomerular Filtration Rate 48.4 mL/min (>60) Glucose Level 115 MG/DL (74-106) H Calcium Level 9.1 MG/DL (8.5-10.1) Total Bilirubin 0.2 MG/DL (0.2-1.0) Aspartate Amino Transferase (AST) 15 U/L (15-37) Alanine Aminotransferase (ALT) 25 U/L (12-78) Alkaline Phosphatase 83 U/L (46-116) Troponin I 0.000 ng/mL (0.000-0.056) Pro-B-Type Natriuretic Peptide 68 pg/mL (0-125) Total Protein 7.4 G/DL (6.4-8.2) Albumin 3.9 G/DL (3.4-5.0) Globulin 3.5 g/dL Albumin/Globulin Ratio 1.1 (1.0-2.7) Arterial Blood pH 7.423 (7.350-7.450) Arterial Blood Partial Pressure CO2 36.8 mmHg (35.0-45.0) Arterial Blood Partial Pressure O2 94.9 mmHg (75.0-100.0) Arterial Blood HCO3 23.5 mmol/L (22.0-26.0) Arterial Blood Oxygen Saturation 97.7 % (95-100) Arterial Blood Base Excess -0.5 (-2-2) Dani Test Positive (Hector Alcazar MD) ER Course Patient signed out by Dr. Alcazar pending chest x-ray, labs and reevaluation. Patient given nebulizer treatment as well as IV steroids. On reevaluation patient still has diffuse wheezes. He states that he does not feel good enough to go home. Patient's labs demonstrate no significant abnormalities. Blood gas has normal pH with normal PCO2 and PaO2. Patient's chest x-ray demonstrates no acute cardiopulmonary pathology. COVID-19 PCR sent. Patient to be admitted for further treatment and evaluation Laboratory Tests Test 03/03/20 13:25 03/03/20 14:03 White Blood Count 6.4 K/UL (4.8-10.8) Red Blood Count 6.92 M/UL (4.70-6.10) H Hemoglobin 14.4 G/DL (14.2-18.0) Hematocrit 46.4 % (42.0-52.0) Mean Corpuscular Volume 67 FL (80-99) L Mean Corpuscular Hemoglobin 20.8 PG (27.0-31.0) L Mean Corpuscular Hemoglobin Concent 31.0 G/DL (32.0-36.0) L Red Cell Distribution Width 12.8 % (11.6-14.8) Platelet Count 275 K/UL (150-450) Mean Platelet Volume 8.1 FL (6.5-10.1) Neutrophils (%) (Auto) 46.2 % (45.0-75.0) Lymphocytes (%) (Auto) 37.1 % (20.0-45.0) Monocytes (%) (Auto) 6.7 % (1.0-10.0) Eosinophils (%) (Auto) 8.3 % (0.0-3.0) H Basophils (%) (Auto) 1.7 % (0.0-2.0) Sodium Level 145 MMOL/L (136-145) Potassium Level 4.5 MMOL/L (3.5-5.1) Chloride Level 104 MMOL/L (98-107) Carbon Dioxide Level 29 MMOL/L (21-32) Anion Gap 13 mmol/L (5-15) Blood Urea Nitrogen 12 mg/dL (7-18) Creatinine 1.5 MG/DL (0.55-1.30) H Estimated Glomerular Filtration Rate 48.4 mL/min (>60) Glucose Level 115 MG/DL (74-106) H Calcium Level 9.1 MG/DL (8.5-10.1) Total Bilirubin 0.2 MG/DL (0.2-1.0) Aspartate Amino Transferase (AST) 15 U/L (15-37) Alanine Aminotransferase (ALT) 25 U/L (12-78) Alkaline Phosphatase 83 U/L (46-116) Troponin I 0.000 ng/mL (0.000-0.056) Pro-B-Type Natriuretic Peptide 68 pg/mL (0-125) Total Protein 7.4 G/DL (6.4-8.2) Albumin 3.9 G/DL (3.4-5.0) Globulin 3.5 g/dL Albumin/Globulin Ratio 1.1 (1.0-2.7) Arterial Blood pH 7.423 (7.350-7.450) Arterial Blood Partial Pressure CO2 36.8 mmHg (35.0-45.0) Arterial Blood Partial Pressure O2 94.9 mmHg (75.0-100.0) Arterial Blood HCO3 23.5 mmol/L (22.0-26.0) Arterial Blood Oxygen Saturation 97.7 % (95-100) Arterial Blood Base Excess -0.5 (-2-2) Dani Test Positive (Yana Oakley M.D.) EKG Diagnostic Results EKG Time: 13:28 Rate: normal Rhythm: NSR ST Segments: no acute changes Other Impression Sinus rhythm, normal axis, normal intervals, no ST segment changes, inferior Q waves undetermined significance (Hector Alcazar MD) Rhythm Strip Diag. Results Rhythm Strip Time: 13:28 EP Interpretation: yes Rate: 60s Rhythm: NSR, no PVC's, no ectopy (Hector Alcazar MD) Rhythm Strip Time: 16:06 EP Interpretation: yes - MD Cele Rate: 90 Rhythm: NSR, no PVC's, no ectopy (Yana Oakley M.D.) Last Vital Signs Date Time Temp Pulse Resp B/P (MAP) Pulse Ox O2 Delivery O2 Flow Rate FiO2 03/03/20 13:08 98.1 90 23 144/80 (101) 100 Room Air (Hector Alcazar MD) Disposition: PLACE IN OBSERVATION Condition: Critical Physician Consult: Dr. Bryant MD at 1605 (Yana Oakley M.D.) Hector Alcazar MD March 03, 2020 13:18 Yana Oakley M.D. March 03, 2020 16:07
[2020-03-03] MEDS: Ipratropium 0.02% Inh Soln 2.5ml UD HHN SCH ×3 (13:30→13:32)
[2020-03-03] MEDS: Albuterol ud Inhalation HHN SCH ×3 (13:30→13:32)
[2020-03-03 13:43] VITALS: BP 132/76
[2020-03-03 14:03] LABS: ANION GAP 13 mmol/L (5-15); BLOOD UREA NITROGEN 12 mg/dL (7-18); CALCIUM 9.1 MG/DL (8.5-10.1); CARBON DIOXIDE 29 MMOL/L (21-32); CHLORIDE 104 MMOL/L (98-107); CREATININE 1.5 MG/DL (0.55-1.30); POTASSIUM 4.5 MMOL/L (3.5-5.1); SODIUM 145 MMOL/L (136-145)
[2020-03-03 14:10] LABS: BASOPHILS % (AUTO) 1.7 % (0.0-2.0); EOSINOPHILS % (AUTO) 8.3 % (0.0-3.0); HEMATOCRIT 46.4 % (42.0-52.0); HEMOGLOBIN 14.4 G/DL (14.2-18.0); LYMPHOCYTES % (AUTO) 37.1 % (20.0-45.0); MEAN CORPUSCULAR VOLUME 67 FL (80-99); MONOCYTES % (AUTO) 6.7 % (1.0-10.0); NEUTROPHILS % (AUTO) 46.2 % (45.0-75.0); PLATELET COUNT 275 K/UL (150-450); RED BLOOD COUNT 6.92 M/UL (4.70-6.10); RED CELL DISTRIBUTION WIDTH 12.8 % (11.6-14.8); WHITE BLOOD COUNT 6.4 K/UL (4.8-10.8)
[2020-03-03 14:14] LABS: ALANINE AMINOTRANSFERASE 25 U/L (12-78); ALBUMIN 3.9 G/DL (3.4-5.0); ALBUMIN/GLOBULIN RATIO 1.1 (1.0-2.7); ALKALINE PHOSPHATASE 83 U/L (46-116); ASPARTATE AMINO TRANSFERASE 15 U/L (15-37); BILIRUBIN,TOTAL 0.2 MG/DL (0.2-1.0)
[2020-03-03 16:18] VITALS: BP 123/71
[2020-03-03] MEDS ORDERED: SPIRIVA18 MCG INH (16:21)
[2020-03-03] MEDS ORDERED: FLUTICASONE PROP1 GM MISC (16:21)
[2020-03-03 17:42] VITALS: BP 147/67
[2020-03-03] MEDS ORDERED: Nitroglycerin Subl 0.4mg tab SL PRN (17:45)
[2020-03-03] MEDS ORDERED: Promethazine/Codeine 5ml UD ORAL PRN (17:45)
[2020-03-03] MEDS ORDERED: Albuterol/Ipratropium 3ml neb HHN PRN (17:45)
[2020-03-03] MEDS ORDERED: Albuterol 90mcg Inhaler 8gm INH PRN (19:30)
[2020-03-03 20:00] VITALS: BP 135/77
[2020-03-03] MEDS: Theophylline ER 100mg ORAL SCH (20:34)
[2020-03-03] MEDS: Heparin 5000 units/ml inj SUBQ SCH (20:35)
[2020-03-03] MEDS: Zoysn 3.37gm in NS 100ML IVPB SCH (21:06)
[2020-03-03] MEDS: LORazepam Inj 2mg/ml 1ml IV PRN (21:07)
[2020-03-03] MEDS ORDERED: Piperacillin/Tazobactam 2.25 GM in D5W 55 ML IV SCH (22:00)
[2020-03-04] VITALS: BP 138/75
[2020-03-04 04:00] VITALS: BP 125/69
[2020-03-04] MEDS: Zoysn 3.37gm in NS 100ML IVPB SCH (05:32)
[2020-03-04 08:49] VITALS: BP 142/72
[2020-03-04] MEDS: Heparin 5000 units/ml inj SUBQ SCH ×2 (09:00→20:32)
[2020-03-04] MEDS: Theophylline ER 100mg ORAL SCH ×2 (09:00→20:31)
[2020-03-04 12:00] VITALS: BP 125/69
--- NOTE | 2020-03-04 13:38 | Consultation ---
History of Present Illness General Chief Complaint: Dyspnea/Respdistress Present Illness HPI 54-year-old male with hx of COPD, Asthma, pacemaker presented to ER with CC of shortness of breath. He has been using his inhalers increasingly over the past 2 weeks due to persistent shortness of breath. He notes a worsening cough and copious phlegm production over the past week. He is also c/o fatigue, decreased appetite, difficulty eating and some episodes of vomiting. He is admitted to telemetry for further management. Allergies: Coded Allergies: METHYLPREDNISOLONE (Verified Allergy, Intermediate, HIVES/ITCHING, ) ASPIRIN (Verified Allergy, Unknown, 02/26/17) CORTISONE (Verified Allergy, Unknown, 02/26/17) PEPPER (GENUS CAPSICUM) (Verified Allergy, Unknown, Shortness of Breath, ) Medication History Scheduled Fluticasone Propionate (Fluticasone Propionate), 1 GM MISC DAILY, (Reported) Fluticasone/Salmeterol (Advair 500-50 Diskus), 1 PUFF INH DAILY, (Reported) Ipratropium [place] (Atrovent Hfa), 2 PUFFS IH Q12HR, (Reported) Montelukast Sodium* (Montelukast Sodium*), 10 MG ORAL DAILY, (Reported) Theophylline (Theodur*), 200 MG ORAL TWICE A DAY, (Reported) Tiotropium [place]* (Spiriva*), 1 PUFF INH DAILY, (Reported) Scheduled PRN Albuterol Sulfate* (Proair Hfa*), 2 PUFFS INH Q6H PRN for Shortness of Breath, ( Reported) Patient History Healthcare decision maker N Resuscitation status Advanced Directive on File Past Medical/Surgical History Past Medical/Surgical History: (1) Pacemaker (2) COPD (chronic obstructive pulmonary disease) Review of Systems All Other Systems: negative except mentioned in HPI Physical Exam General Appearance: WD/WN, no apparent distress Lines, tubes and drains: peripheral, central line HEENT: normocephalic, atraumatic Neck: non-tender, normal alignment Respiratory/Chest: chest wall non-tender, rhonchi - left, rhonchi - right Cardiovascular/Chest: normal peripheral pulses, normal rate Abdomen: normal bowel sounds, non tender Genitourinary/Rectal: normal genital exam Skin Exam: normal pigmentation Last 24 Hour Vital Signs Date Time Temp Pulse Resp B/P (MAP) Pulse Ox O2 Delivery O2 Flow Rate FiO2 03/04/20 08:51 Nasal Cannula 3.0 03/04/20 08:49 97.7 88 16 142/72 (95) 97 03/04/20 04:00 97.1 91 19 125/69 (87) 97 03/04/20 00:00 93 03/04/20 00:00 97.8 92 18 138/75 (96) 96 03/03/20 21:00 Nasal Cannula 3.0 03/03/20 20:00 97.3 94 18 135/77 (96) 97 03/03/20 20:00 104 03/03/20 17:45 Room Air 03/03/20 17:42 97.9 85 28 147/67 (93) 97 03/03/20 17:00 98.6 76 21 140/76 99 Room Air 03/03/20 16:18 98.1 72 20 123/71 99 Room Air 03/03/20 13:43 77 22 Nasal Cannula 2.0 99 03/03/20 13:43 98.1 77 22 132/76 99 Nasal Cannula 2.0 99 Intake and Output 03/03/20 03/04/20 19:00 07:00 Intake Total 240 ml 320 ml Balance 240 ml 320 ml Intake Oral 240 ml 320 ml Laboratory Tests Test 03/03/20 14:03 Arterial Blood pH 7.423 (7.350-7.450) Arterial Blood Partial Pressure CO2 36.8 mmHg (35.0-45.0) Arterial Blood Partial Pressure O2 94.9 mmHg (75.0-100.0) Arterial Blood HCO3 23.5 mmol/L (22.0-26.0) Arterial Blood Oxygen Saturation 97.7 % (95-100) Arterial Blood Base Excess -0.5 (-2-2) Dani Test Positive Height (Feet): 6 Height (Inches): 4.00 Weight (Pounds): 220 Medications Current Medications Medications (Trade) Dose Ordered Sig/Leno Route PRN Reason Start Time Stop Time Status Last Admin Dose Admin Albuterol Sulfate (Proventil MDI) 2 puff Q4H PRN INH Shortness of Breath 03/03/20 19:30 06/01/20 19:29 03/03/20 20:34 Albuterol/ Ipratropium (Albuterol/ Ipratropium) 3 ml Q4H PRN HHN dyspnea 03/03/20 17:45 03/08/20 17:44 Dextrose (Dextrose 50%) 25 ml Q30M PRN IV Hypoglycemia 03/03/20 17:45 06/01/20 17:44 Dextrose (Dextrose 50%) 50 ml Q30M PRN IV Hypoglycemia 03/03/20 17:45 06/01/20 17:44 Heparin Sodium (Porcine) (Heparin 5000 units/ml) 5,000 units EVERY 12 HOURS SUBQ 03/03/20 21:00 04/17/20 20:59 03/03/20 20:35 Lorazepam (Ativan 2mg/ml 1ml) 0.5 mg Q4H PRN IV For Anxiety 03/03/20 17:45 03/10/20 17:44 03/03/20 21:07 Nitroglycerin (Ntg) 0.4 mg Q5M X 3 DOSES PRN SL Prn Chest Pain 03/03/20 17:45 04/02/20 17:44 Ondansetron HCl (Zofran) 4 mg Q6H PRN IVP Nausea & Vomiting 03/03/20 17:45 04/02/20 17:44 Piperacillin Sod/ Tazobactam Sod 3.375 gm/Sodium Chloride 110 ml @ 27.5 mls/hr EVERY 8 HOURS IVPB 03/03/20 22:00 03/08/20 21:59 03/04/20 05:32 Prednisone (predniSONE) 40 mg DAILY ORAL 03/04/20 09:00 04/03/20 08:59 03/04/20 09:00 Promethazine HCl/ Codeine (Phenergan with Codeine) 5 ml Q6H PRN ORAL cough 03/03/20 17:45 04/02/20 17:44 Temazepam (Restoril) 15 mg HSPRN PRN ORAL Insomnia 03/03/20 17:45 03/10/20 17:44 Theophylline (Fausto-Dur) 100 mg EVERY 12 HOURS ORAL 03/03/20 21:00 06/01/20 20:59 03/04/20 09:00 Assessment/Plan Problem List: (1) Acute exacerbation of COPD with asthma ICD Codes: J44.1 - Chronic obstructive pulmonary disease with (acute) exacerbation; J45.901 - Unspecified asthma with (acute) exacerbation SNOMED: 4508444005548 (2) 2019 novel coronavirus disease (COVID-19) ICD Codes: U07.1 - COVID-19 SNOMED: 000703713 (3) Purulent bronchitis ICD Codes: J41.1 - Mucopurulent chronic bronchitis SNOMED: 58735627 (4) COPD (chronic obstructive pulmonary disease) ICD Codes: J44.9 - Chronic obstructive pulmonary disease, unspecified SNOMED: 67383690 (5) Pacemaker ICD Codes: Z95.0 - Presence of cardiac pacemaker SNOMED: 969320650, 800251928 Assessment/Plan: check sputum respiratory treatment po steroids, pt is allergic to Solumedrol COVID pending titrate fio2 to sat of 92% cardiology to see to check out the pacemaker antitussives symptomatic treatment Nimesh Sanchez MD March 04, 2020 13:38
--- NOTE | 2020-03-04 14:17 | Consultation ---
History of Present Illness General Date patient seen: March 04, 2020 Chief Complaint: Dyspnea/Respdistress Present Illness HPI 54 y/o M with hx of COPD/asthma, s/p PPM, HTN presented to ED on 03/03 with 2 weeks of worsening SOB, productive cough with copious phlegm production, fatigue , decreased appetite and vomiting. He has been using his albuterol, Spiriva, fluticasone and Atrovent inhalers increasingly over the past 2 weeks. HE has been tested twice for COVID in the past 2 wees and resulted neg at this PCP office. Allergies: Coded Allergies: METHYLPREDNISOLONE (Verified Allergy, Intermediate, HIVES/ITCHING, ) ASPIRIN (Verified Allergy, Unknown, 02/26/17) CORTISONE (Verified Allergy, Unknown, 02/26/17) PEPPER (GENUS CAPSICUM) (Verified Allergy, Unknown, Shortness of Breath, ) Medication History Scheduled Fluticasone Propionate (Fluticasone Propionate), 1 GM MISC DAILY, (Reported) Fluticasone/Salmeterol (Advair 500-50 Diskus), 1 PUFF INH DAILY, (Reported) Ipratropium Avoca (Atrovent Hfa), 2 PUFFS IH Q12HR, (Reported) Montelukast Sodium* (Montelukast Sodium*), 10 MG ORAL DAILY, (Reported) Theophylline (Theodur*), 200 MG ORAL TWICE A DAY, (Reported) Tiotropium Avoca* (Spiriva*), 1 PUFF INH DAILY, (Reported) Scheduled PRN Albuterol Sulfate* (Proair Hfa*), 2 PUFFS INH Q6H PRN for Shortness of Breath, ( Reported) Patient History Healthcare decision maker N Resuscitation status Advanced Directive on File Patient History Narrative Pmhx: as above SHx: reviewed Fhx: non contributory Review of Systems All Other Systems: negative except mentioned in HPI Physical Exam Physical Exam Narrative General: Awake and alert, appears uncomfortable HEENT: NC/AT. EOMI. Chest wall: Pacemaker palpable left side Cardiovascular: RRR. S1 and S2 normal. No murmur appreciated Resp: Tachypnea and mild increase in work of breathing. Intermittent cough. Diffuse inspiratory and expiratory wheezes bilaterally. Skin: Intact. No abrasions, laceration or rash over the exposed skin MSK: Normal tone and bulk. Moving all extremities. No obvious deformity. Neuro: Awake and alert. Mentating appropriately. Last 24 Hour Vital Signs Date Time Temp Pulse Resp B/P (MAP) Pulse Ox O2 Delivery O2 Flow Rate FiO2 03/04/20 08:51 Nasal Cannula 3.0 03/04/20 08:49 97.7 88 16 142/72 (95) 97 03/04/20 04:00 97.1 91 19 125/69 (87) 97 03/04/20 00:00 93 03/04/20 00:00 97.8 92 18 138/75 (96) 96 03/03/20 21:00 Nasal Cannula 3.0 03/03/20 20:00 97.3 94 18 135/77 (96) 97 03/03/20 20:00 104 03/03/20 17:45 Room Air 03/03/20 17:42 97.9 85 28 147/67 (93) 97 03/03/20 17:00 98.6 76 21 140/76 99 Room Air 03/03/20 16:18 98.1 72 20 123/71 99 Room Air Intake and Output 03/03/20 03/04/20 19:00 07:00 Intake Total 240 ml 320 ml Balance 240 ml 320 ml Intake Oral 240 ml 320 ml Height (Feet): 6 Height (Inches): 4.00 Weight (Pounds): 220 Medications Current Medications Medications (Trade) Dose Ordered Sig/Leno Route PRN Reason Start Time Stop Time Status Last Admin Dose Admin Albuterol Sulfate (Proventil MDI) 2 puff Q4H PRN INH Shortness of Breath 03/03/20 19:30 06/01/20 19:29 03/03/20 20:34 Albuterol/ Ipratropium (Albuterol/ Ipratropium) 3 ml Q4H PRN HHN dyspnea 03/03/20 17:45 03/08/20 17:44 Dextrose (Dextrose 50%) 25 ml Q30M PRN IV Hypoglycemia 03/03/20 17:45 06/01/20 17:44 Dextrose (Dextrose 50%) 50 ml Q30M PRN IV Hypoglycemia 03/03/20 17:45 06/01/20 17:44 Heparin Sodium (Porcine) (Heparin 5000 units/ml) 5,000 units EVERY 12 HOURS SUBQ 03/03/20 21:00 04/17/20 20:59 03/03/20 20:35 Lorazepam (Ativan 2mg/ml 1ml) 0.5 mg Q4H PRN IV For Anxiety 03/03/20 17:45 03/10/20 17:44 03/03/20 21:07 Nitroglycerin (Ntg) 0.4 mg Q5M X 3 DOSES PRN SL Prn Chest Pain 03/03/20 17:45 04/02/20 17:44 Ondansetron HCl (Zofran) 4 mg Q6H PRN IVP Nausea & Vomiting 03/03/20 17:45 04/02/20 17:44 Piperacillin Sod/ Tazobactam Sod 3.375 gm/Sodium Chloride 110 ml @ 27.5 mls/hr EVERY 8 HOURS IVPB 03/03/20 22:00 03/08/20 21:59 03/04/20 05:32 Prednisone (predniSONE) 40 mg DAILY ORAL 03/04/20 09:00 04/03/20 08:59 03/04/20 09:00 Promethazine HCl/ Codeine (Phenergan with Codeine) 5 ml Q6H PRN ORAL cough 03/03/20 17:45 04/02/20 17:44 Temazepam (Restoril) 15 mg HSPRN PRN ORAL Insomnia 03/03/20 17:45 03/10/20 17:44 Theophylline (Fausto-Dur) 100 mg EVERY 12 HOURS ORAL 03/03/20 21:00 06/01/20 20:59 03/04/20 09:00 Assessment/Plan Assessment/Plan: Abx: Zosyn 03/03- Assessment: VIral syndrome- r/o COVID19 COPD exacerbation- on 3L nC -CXR: NO ACUTE CARDIOPULMONARY DISEASE. -tested COVID neg x2 in the last 2 weeks as outpatient (requested by PCP) Afebrile No leukocytosis LUIS vs CKD COPD/asthma s/p PPM HTN Plan: -Switch Zosyn #2 to PO levaquin -f/u cx -Monitor CBC/CMP, temperature -COVID19 isolation and testing Thank you for consulting [facility]. Will continue to follow along wiht you. Harika Phillips M.D. March 04, 2020 14:17
[2020-03-04] MEDS: Levofloxacin 500mg tab ORAL SCH (14:30)
[2020-03-04 16:00] VITALS: BP 132/77
--- NOTE | 2020-03-04 16:30 | Diagnostic Imaging Report ---
Procedure: XRAY Chest 1v Reason for study: Reason For Exam: SOB Comparison films: 05/20/2018. FINDINGS: Cardiac pacer remains in place. Vascularity is normal. The lung del real are clear bilaterally. Cardiac and mediastinal silhouette are within normal limits. CP angles are sharp. The bony thorax appear unremarkable. IMPRESSION: NO ACUTE CARDIOPULMONARY DISEASE.
--- NOTE | 2020-03-04 16:35 | History & Physical ---
History and Physical History & Physicial Manuel Hurtado MD March 04, 2020 16:35
[2020-03-04 20:00] VITALS: BP 142/63
[2020-03-04] MEDS: LORazepam Inj 2mg/ml 1ml IV PRN (20:31)
--- NOTE | 2020-03-04 23:15 | History and Physical Report ---
DATE OF ADMISSION: 03/03/2020 CHIEF COMPLAINT: Shortness of breath. HISTORY OF PRESENT ILLNESS: This is a 54-year-old gentleman with past medical history significant for asthma, COPD, heart failure, status post pacemaker who presented to the emergency department complaining of shortness of breath, occasional cough. He has been using his inhaler increased progressively worsened over past 2 weeks due to the persistent shortness of breath. He noted that his cough has been worsening with copious phlegm productive over past week. He complained about fatigue, decreased appetite, decreased oral intake, some vomiting, and nausea. Shortly after initial evaluation in the emergency department, patient was admitted to the hospital with acute COPD exacerbation and possible COVID-19 infection with purulent bronchitis. PAST MEDICAL HISTORY/PAST SURGICAL HISTORY: As above. History of COPD, asthma, heart failure, status post pacemaker. MEDICATIONS: At home significant for Advair, Atrovent, Flonase, Singulair, theophylline, and Spiriva. ALLERGIES: To aspirin, cortisone, methylprednisolone, pepper. SOCIAL HISTORY: Patient currently denies any smoking, alcohol, or drugs. FAMILY HISTORY: Noncontributory. REVIEW OF SYSTEMS: Mostly as above. Denies any dysuria, frequency, or hematuria. Complained about cough and shortness of breath. Denies any hemoptysis or hematochezia. Complained about weakness, fatigue. Denies any loss of consciousness. Denies any fall or head trauma. PHYSICAL EXAMINATION: VITAL SIGNS: On admission, temperature 98.1, pulse of 77, respirations 22, blood pressure 132/76. GENERAL: Patient awake, responsive, no acute distress. HEAD AND NECK: Pupils are equal and reactive to light. Extraocular movements intact. Neck was supple. No JVD. LUNGS: Good air entry. No wheezes. Decreased air in bases. Has rhonchi left greater than right. HEART: S1, S2. Regular rhythm. Distant heart sounds. ABDOMEN: Soft, nondistended, nontender. Positive bowel sounds. EXTREMITIES: No cyanosis, clubbing, or edema NEUROLOGIC: Cranial nerves II through XII grossly normal. Motor is 5/5 in all extremities. Gait was not assessed due to patient's status. LABORATORY DATA: On admission from the emergency department, WBC of 6.4, hemoglobin 14, hematocrit 46, platelet is 275. PH of 7.42, pCO2 of 36, pO2 of 94, saturating 97%. Sodium 145, potassium 4.5, chloride 104, bicarb 29, BUN 12, creatinine 1.5, GFR is 48.4, glucose is 115, calcium is 9.1. AST of 15, ALT of 25. Troponin 0.00. ASSESSMENT: 1. Shortness of breath, most likely secondary to the acute COPD exacerbation. However, cannot rule out COVID-19 infection. 2. Purulent bronchitis. 3. Sick sinus syndrome with pacemaker. 4. Heart failure. PLAN: Admit patient to [facility]-19 isolation room. We will follow up with the laboratory. Patient has Solu-Medrol allergy. We will follow up with the cultures. Broad-spectrum spectrum antibiotics with Levaquin. We will hold off on nebulizer treatment. Code status, Full code. DVT prophylaxis is heparin subcutaneous. We will follow up with Dr. Sanchez, Pulmonary Critical Care consultation as well as Dr. Phillips from Infectious Disease. Manuel Hurtado M.D. DR: GUERRERO JOB#: [id number] CC:
[2020-03-05] VITALS: BP 127/81
[2020-03-05 04:00] VITALS: BP 146/68
--- NOTE | 2020-03-05 07:15 | Pulmonology Progress Note ---
Subjective Allergies: Coded Allergies: METHYLPREDNISOLONE (Verified Allergy, Intermediate, HIVES/ITCHING, ) ASPIRIN (Verified Allergy, Unknown, 02/26/17) CORTISONE (Verified Allergy, Unknown, 02/26/17) PEPPER (GENUS CAPSICUM) (Verified Allergy, Unknown, Shortness of Breath, ) Subjective afebrile, no leuk on 3 L O2 via NC, sta stable COVID result back, negative Objective Last 24 Hour Vital Signs Date Time Temp Pulse Resp B/P (MAP) Pulse Ox O2 Delivery O2 Flow Rate FiO2 03/05/20 04:00 98.4 76 25 146/68 (94) 97 03/05/20 04:00 63 03/05/20 00:00 97.4 69 18 127/81 (96) 96 03/05/20 00:00 68 03/04/20 23:39 82 03/04/20 21:00 Nasal Cannula 3.0 03/04/20 20:00 82 03/04/20 20:00 97.6 75 25 142/63 (89) 97 03/04/20 16:00 97.3 88 22 132/77 (95) 96 03/04/20 12:00 97.1 90 22 125/69 (87) 96 03/04/20 08:51 Nasal Cannula 3.0 03/04/20 08:49 97.7 88 16 142/72 (95) 97 Intake and Output 03/04/20 03/05/20 19:00 07:00 Intake Total 320 ml 320 ml Balance 320 ml 320 ml Intake Oral 320 ml 320 ml # Voids 3 General Appearance: no acute distress HEENT: normocephalic, atraumatic, anicteric, mucous membranes moist Respiratory: decreased breath sounds, expiratory wheezing - few scattered exp wheezes Cardiovascular: normal rate Abdomen: normal bowel sounds, soft, non tender, non distended Extremities: no edema Neurologic: no motor/sensory deficits, alert, oriented x 3, responsive Musculoskeletal: normal muscle bulk Current Medications Medications (Trade) Dose Ordered Sig/Leno Route PRN Reason Start Time Stop Time Status Last Admin Dose Admin Albuterol Sulfate (Proventil MDI) 2 puff Q4H PRN INH Shortness of Breath 03/03/20 19:30 06/01/20 19:29 03/03/20 20:34 Albuterol/ Ipratropium (Albuterol/ Ipratropium) 3 ml Q4H PRN HHN dyspnea 03/03/20 17:45 03/08/20 17:44 Dextrose (Dextrose 50%) 25 ml Q30M PRN IV Hypoglycemia 03/03/20 17:45 06/01/20 17:44 Dextrose (Dextrose 50%) 50 ml Q30M PRN IV Hypoglycemia 03/03/20 17:45 06/01/20 17:44 Heparin Sodium (Porcine) (Heparin 5000 units/ml) 5,000 units EVERY 12 HOURS SUBQ 03/03/20 21:00 04/17/20 20:59 03/04/20 20:32 Levofloxacin (Levaquin) 500 mg EVERY OTHER DAY ORAL 03/04/20 14:30 03/11/20 14:29 03/04/20 14:30 Lorazepam (Ativan 2mg/ml 1ml) 0.5 mg Q4H PRN IV For Anxiety 03/03/20 17:45 03/10/20 17:44 03/04/20 20:31 Nitroglycerin (Ntg) 0.4 mg Q5M X 3 DOSES PRN SL Prn Chest Pain 03/03/20 17:45 04/02/20 17:44 Ondansetron HCl (Zofran) 4 mg Q6H PRN IVP Nausea & Vomiting 03/03/20 17:45 04/02/20 17:44 Prednisone (predniSONE) 40 mg DAILY ORAL 03/04/20 09:00 04/03/20 08:59 03/04/20 09:00 Promethazine HCl/ Codeine (Phenergan with Codeine) 5 ml Q6H PRN ORAL cough 03/03/20 17:45 04/02/20 17:44 Temazepam (Restoril) 15 mg HSPRN PRN ORAL Insomnia 03/03/20 17:45 03/10/20 17:44 Theophylline (Fausto-Dur) 100 mg EVERY 12 HOURS ORAL 03/03/20 21:00 06/01/20 20:59 03/04/20 20:31 Assessment/Plan Assessment/Plan ASSESSMENT COPD exacerbation Purulent bronchitis Suspected COVID-19 infection Pacemaker CHF LUIS vs CRI PLAN OF CARE tele SARS-CoV-2 by PCR NGT dc isolation O2 -titrate to keep sat above 92% pulm toilet on oral prednisone , started tapering this am empiric abx SCX if able trial of theophylline antitussive prn DVT prophylaxis monitor renal parameters , lytes , avoid nephrotoxic supportive care dc plan in 1-2 days case discussed and evaluated by supervising physician Mana Sanchez NP March 05, 2020 07:14
[2020-03-05 08:23] VITALS: BP 135/77
[2020-03-05] MEDS: Theophylline ER 100mg ORAL SCH ×2 (08:32→20:26)
[2020-03-05] MEDS: Heparin 5000 units/ml inj SUBQ SCH ×2 (08:34→20:27)
--- NOTE | 2020-03-05 10:18 | Infectious Diseases Prog Note ---
Assessment/Plan Assessment/Plan Abx: Zosyn 03/03- Assessment: VIral syndrome- r/o COVID19 COPD exacerbation- on 3L nC -CXR: NO ACUTE CARDIOPULMONARY DISEASE. -tested COVID neg x2 in the last 2 weeks as outpatient (requested by PCP) Afebrile No leukocytosis LUIS vs CKD COPD/asthma s/p PPM HTN Plan: - Continue PO Levofloxacin #2/5 -03/04/20 SPZosyn #2 -f/u cx -Monitor CBC/CMP, temperature -COVID19 isolation and testing Thank you for consulting [facility]. Will continue to follow along wiht you. Subjective Allergies: Coded Allergies: METHYLPREDNISOLONE (Verified Allergy, Intermediate, HIVES/ITCHING, ) ASPIRIN (Verified Allergy, Unknown, 02/26/17) CORTISONE (Verified Allergy, Unknown, 02/26/17) PEPPER (GENUS CAPSICUM) (Verified Allergy, Unknown, Shortness of Breath, ) Subjective Afebrile No Leukocytosis Sattign well on 3L NC Objective Vital Signs Last 24 Hour Vital Signs Date Time Temp Pulse Resp B/P (MAP) Pulse Ox O2 Delivery O2 Flow Rate FiO2 03/05/20 08:23 97.9 65 20 135/77 (96) 99 03/05/20 04:00 98.4 76 25 146/68 (94) 97 03/05/20 04:00 63 03/05/20 00:00 97.4 69 18 127/81 (96) 96 03/05/20 00:00 68 03/04/20 23:39 82 03/04/20 21:00 Nasal Cannula 3.0 03/04/20 20:00 82 03/04/20 20:00 97.6 75 25 142/63 (89) 97 03/04/20 16:00 97.3 88 22 132/77 (95) 96 03/04/20 12:00 97.1 90 22 125/69 (87) 96 Height (Feet): 6 Height (Inches): 4.00 Weight (Pounds): 220 Objective General: Awake and alert HEENT: NC/AT. EOMI. Chest wall: Pacemaker palpable left side Cardiovascular: RRR. S1 and S2 normal. No murmur appreciated Resp: Tachypnea and mild increase in work of breathing. Intermittent cough. Diffuse inspiratory and expiratory wheezes bilaterally. Neuro: Awake and alert. Microbiology Date/Time Source Procedure Growth Status 03/03/20 17:25 Nasopharynx Coronavirus COVID-19 PCR ([facility]) - Final Complete Current Medications Medications (Trade) Dose Ordered Sig/Leno Route PRN Reason Start Time Stop Time Status Last Admin Dose Admin Albuterol/ Ipratropium (Albuterol/ Ipratropium) 3 ml Q4H PRN HHN dyspnea 03/03/20 17:45 03/08/20 17:44 Dextrose (Dextrose 50%) 25 ml Q30M PRN IV Hypoglycemia 03/03/20 17:45 06/01/20 17:44 Dextrose (Dextrose 50%) 50 ml Q30M PRN IV Hypoglycemia 03/03/20 17:45 06/01/20 17:44 Heparin Sodium (Porcine) (Heparin 5000 units/ml) 5,000 units EVERY 12 HOURS SUBQ 03/03/20 21:00 04/17/20 20:59 03/05/20 08:34 Levofloxacin (Levaquin) 500 mg EVERY OTHER DAY ORAL 03/04/20 14:30 03/11/20 14:29 03/04/20 14:30 Lorazepam (Ativan 2mg/ml 1ml) 0.5 mg Q4H PRN IV For Anxiety 03/03/20 17:45 03/10/20 17:44 03/04/20 20:31 Nitroglycerin (Ntg) 0.4 mg Q5M X 3 DOSES PRN SL Prn Chest Pain 03/03/20 17:45 04/02/20 17:44 Ondansetron HCl (Zofran) 4 mg Q6H PRN IVP Nausea & Vomiting 03/03/20 17:45 04/02/20 17:44 Prednisone (predniSONE) 30 mg DAILY ORAL 03/06/20 09:00 04/05/20 08:59 Promethazine HCl/ Codeine (Phenergan with Codeine) 5 ml Q6H PRN ORAL cough 03/03/20 17:45 04/02/20 17:44 Temazepam (Restoril) 15 mg HSPRN PRN ORAL Insomnia 03/03/20 17:45 03/10/20 17:44 Theophylline (Fausto-Dur) 100 mg EVERY 12 HOURS ORAL 03/03/20 21:00 06/01/20 20:59 03/05/20 08:[address] MD March 05, 2020 10:18
[2020-03-05 12:00] VITALS: BP 131/72
--- NOTE | 2020-03-05 14:05 | Internal Med Progress Note ---
Subjective Physician Name Manuel Hurtado Attending Physician Manuel Hurtado MD Current Medications Medications (Trade) Dose Ordered Sig/Leno Route PRN Reason Start Time Stop Time Status Last Admin Dose Admin Albuterol/ Ipratropium (Albuterol/ Ipratropium) 3 ml Q4H PRN HHN dyspnea 03/03/20 17:45 03/08/20 17:44 Dextrose (Dextrose 50%) 25 ml Q30M PRN IV Hypoglycemia 03/03/20 17:45 06/01/20 17:44 Dextrose (Dextrose 50%) 50 ml Q30M PRN IV Hypoglycemia 03/03/20 17:45 06/01/20 17:44 Heparin Sodium (Porcine) (Heparin 5000 units/ml) 5,000 units EVERY 12 HOURS SUBQ 03/03/20 21:00 04/17/20 20:59 03/05/20 08:34 Levofloxacin (Levaquin) 500 mg EVERY OTHER DAY ORAL 03/04/20 14:30 03/11/20 14:29 03/04/20 14:30 Lorazepam (Ativan 2mg/ml 1ml) 0.5 mg Q4H PRN IV For Anxiety 03/03/20 17:45 03/10/20 17:44 03/04/20 20:31 Nitroglycerin (Ntg) 0.4 mg Q5M X 3 DOSES PRN SL Prn Chest Pain 03/03/20 17:45 04/02/20 17:44 Ondansetron HCl (Zofran) 4 mg Q6H PRN IVP Nausea & Vomiting 03/03/20 17:45 04/02/20 17:44 Prednisone (predniSONE) 30 mg DAILY ORAL 03/06/20 09:00 04/05/20 08:59 Promethazine HCl/ Codeine (Phenergan with Codeine) 5 ml Q6H PRN ORAL cough 03/03/20 17:45 04/02/20 17:44 Temazepam (Restoril) 15 mg HSPRN PRN ORAL Insomnia 03/03/20 17:45 03/10/20 17:44 Theophylline (Fausto-Dur) 100 mg EVERY 12 HOURS ORAL 03/03/20 21:00 06/01/20 20:59 03/05/20 08:32 Allergies: Coded Allergies: METHYLPREDNISOLONE (Verified Allergy, Intermediate, HIVES/ITCHING, ) ASPIRIN (Verified Allergy, Unknown, 02/26/17) CORTISONE (Verified Allergy, Unknown, 02/26/17) PEPPER (GENUS CAPSICUM) (Verified Allergy, Unknown, Shortness of Breath, ) Subjective awake, alert, responsive, feeling better, less SOB, NO N/V, No CP Objective Last Vital Signs Date Time Temp Pulse Resp B/P (MAP) Pulse Ox O2 Delivery O2 Flow Rate FiO2 03/05/20 12:00 97.6 78 18 131/72 (91) 96 03/05/20 09:00 Nasal Cannula 3.0 03/03/20 13:43 99 Microbiology Date/Time Source Procedure Growth Status 03/03/20 17:25 Nasopharynx Coronavirus COVID-19 PCR ([facility]) - Final Complete Intake and Output 03/04/20 03/05/20 19:00 07:00 Intake Total 320 ml 320 ml Balance 320 ml 320 ml Intake Oral 320 ml 320 ml # Voids 3 Objective GENERAL: Patient awake, responsive, no acute distress. HEAD AND NECK: Pupils are equal and reactive to light. Extraocular movements intact. Neck was supple. No JVD. LUNGS: Decrease air entry at bases. expiratory wheezes. Decreased air in bases. No rhonchi. HEART: S1, S2. Regular rhythm. Distant heart sounds. ABDOMEN: Soft, nondistended, nontender. Positive bowel sounds. EXTREMITIES: No cyanosis, clubbing, or edema NEUROLOGIC: Cranial nerves II through XII grossly normal. Motor is 5/5 in all extremities. Gait was not assessed due to patient's status. Assessment/Plan Assessment/Plan ASSESSMENT: 1. Shortness of breath, most likely secondary to the acute COPD exacerbation. However, cannot rule out COVID-19 infection. 2. Purulent bronchitis. 3. Sick sinus syndrome with pacemaker. 4. Heart failure. PLAN: In COVID-19 isolation room. Follow up with the laboratory and cultures. 1st COVID-19 test negative. On Prednisone 30mg po Daily. Broad-spectrum spectrum antibiotics with Levaquin. We will Hold off on nebulizer treatment only MDI. Dr. Sanchez, Pulmonary Critical Care consultation as well as Dr. Phillips from Infectious Disease. Code status: Full code. DVT prophylaxis: Heparin subcutaneous. DC planning soon. Manuel Hurtado MD March 05, 2020 14:05
[2020-03-05 16:00] VITALS: BP 111/63
--- NOTE | 2020-03-05 17:00 | Consultation ---
Consult Note Consult Note Cardiology for Dr Archer Assessment/Plan full consult dictated #[id number] Isabelle Land MD March 05, 2020 17:00
[2020-03-05 20:00] VITALS: BP 124/76
[2020-03-06] VITALS: BP 131/72
--- NOTE | 2020-03-06 00:15 | Consultation ---
DATE OF CONSULTATION: 03/05/2020 CARDIOLOGY CONSULTATION Coverage for Omid Archer M.D. CONSULTING PHYSICIAN: Isabelle Land M.D. REASON FOR CONSULT: Heart failure, status post pacemaker. HISTORY OF PRESENT ILLNESS: The patient is a 54-year-old man with a history of chronic obstructive pulmonary disease, congestive heart failure, and previous pacemaker as well as possible CAD who was admitted with shortness of breath and productive cough over 2 weeks prior to admission. He noted purulent sputum, nausea, and vomiting as well as decreased oral intake. He is admitted for chronic obstructive pulmonary disease exacerbation, bronchitis, and possible COVID-19 infection. Cardiology follow up was requested given his history of congestive heart failure and permanent pacemaker. He denies chest pain, angina, palpitations, dizziness, or syncope. MEDICATIONS: Prednisone 30 mg daily, Levaquin 500 mg every other day, subcutaneous heparin 5000 units q.12 hours, theophylline 100 mg q.12 hours, DuoNeb nebulizer q.4 h. as needed, lorazepam 0.5 mg q.4 hours p.r.n., nitroglycerin sublingual p.r.n., and Zofran as needed. ALLERGIES: Aspirin, cortisone, methylprednisolone. PAST MEDICAL HISTORY: As noted above. SOCIAL HISTORY: The patient continues to smoke, but reports minimal use 1 to 3 cigarettes per day. No history of alcohol or drug abuse. PHYSICAL EXAMINATION: VITAL SIGNS: Blood pressure is 131/72, pulse 78 and regular, respiration 18, afebrile. GENERAL: Alert, thin white male, in no acute distress. HEENT: Normocephalic and atraumatic. Pupils are equal, round, and reactive to light. Sclerae anicteric. Oral mucosa are moist. NECK: Supple. There is no jugular venous distention. LUNGS: Good air movement. Decreased breath sounds bilaterally. Minimal rhonchi. No rales or wheezes. HEART: Regular S1 and S2 with distant heart sounds. No murmur or S3. ABDOMEN: Soft, nontender, and nondistended. No palpable mass. EXTREMITIES: No cyanosis, clubbing, or edema. SKIN: No rashes or lesions. LABORATORY DATA: Hemoglobin 14, hematocrit 46, and white blood count 6400. Potassium 4.5, BUN 12, creatinine 1.5, troponin 0. Chest x-ray shows hyperinflated lung del real. Dual-chamber pacemaker with leads in the right atrium and right ventricle. No infiltrates or effusions. EKG shows normal sinus rhythm, rate of 63 beats per minute, normal axis, [address]-segment or T-wave changes. ASSESSMENT AND RECOMMENDATIONS: The patient is a 54-year-old man with a history of permanent dual-chamber pacemaker, congestive heart failure, and possible CAD as well as history of tobacco use and chronic obstructive pulmonary disease who was admitted with chronic obstructive pulmonary disease exacerbation, possible COVID-19 infection (laboratories pending). He does not appear with any anginal symptoms and does not appear in congestive heart failure currently. I would recommend continuing treatment for his chronic obstructive pulmonary disease exacerbation as per the primary team and COVID rule out. We will arrange for pacemaker interrogation once he has ruled out for COVID infection. We will obtain an echo to assess left ventricular function and wall motion once he is off COVID isolation. We will check lipid panel. We will attempt to obtain old records regarding his previous cardiac history and procedures. Dr. Archer will continue to follow the patient starting 03/07/2020. Isabelle Land M.D. DR: MARI JOB#: [id number] CC:
[2020-03-06 04:00] VITALS: BP 128/72
[2020-03-06 08:00] VITALS: BP 143/78
--- NOTE | 2020-03-06 08:22 | Diagnostic Imaging Report ---
EXAM: XR Chest, 1 View CLINICAL HISTORY: Shortness of breath TECHNIQUE: Frontal view of the chest. COMPARISON: Chest x-ray dated 03/03/20 FINDINGS: Lungs: Unremarkable. The lungs appear clear. No focal consolidation. Pleural space: Unremarkable. The costophrenic angles are sharp. No visible pneumothorax. Heart: Unremarkable. No cardiomegaly. Mediastinum: Unremarkable. Bones/joints: Unremarkable. Vasculature: Atherosclerotic calcifications are noted within the aortic arch. Tubes, lines and devices: Cardiac pacer in the left chest wall with the lead tips in the right atrium and right ventricle regions. Telemetry leads overlie the thorax. IMPRESSION: No acute findings. No significant interval change compared to the prior chest x-ray.
--- NOTE | 2020-03-06 08:37 | Pulmonology Progress Note ---
Subjective Allergies: Coded Allergies: METHYLPREDNISOLONE (Verified Allergy, Intermediate, HIVES/ITCHING, ) ASPIRIN (Verified Allergy, Unknown, 02/26/17) CORTISONE (Verified Allergy, Unknown, 02/26/17) PEPPER (GENUS CAPSICUM) (Verified Allergy, Unknown, Shortness of Breath, ) All Systems: reviewed and negative except above Subjective afebrile, no leuk on 3 L O2 via NC, sat stable COVID result back, negative off isolation labs pending for this am Objective Last 24 Hour Vital Signs Date Time Temp Pulse Resp B/P (MAP) Pulse Ox O2 Delivery O2 Flow Rate FiO2 03/06/20 04:00 97.0 63 20 128/72 (90) 97 03/06/20 04:00 60 03/06/20 00:00 68 03/06/20 00:00 97.9 82 20 131/72 (91) 96 03/05/20 21:00 Nasal Cannula 3.0 03/05/20 21:00 68 03/05/20 20:40 97 Nasal Cannula 3.0 32 03/05/20 20:40 84 20 97 Nasal Cannula 3.0 32 03/05/20 20:00 74 03/05/20 20:00 97.7 89 20 124/76 (92) 97 03/05/20 16:00 74 03/05/20 16:00 97.2 85 24 111/63 (79) 96 03/05/20 12:00 97.6 78 18 131/72 (91) 96 03/05/20 12:00 71 03/05/20 09:00 Nasal Cannula 3.0 Intake and Output 03/05/20 03/06/20 19:00 07:00 Intake Total 480 ml 960 ml Balance 480 ml 960 ml Intake Oral 480 ml 960 ml # Voids 2 4 # Bowel Movements 1 General Appearance: no acute distress HEENT: normocephalic, atraumatic, anicteric, mucous membranes moist Respiratory: decreased breath sounds Cardiovascular: normal rate Abdomen: normal bowel sounds, soft, non tender, non distended Extremities: no edema Neurologic: no motor/sensory deficits, alert, oriented x 3, responsive Musculoskeletal: normal muscle bulk Microbiology Date/Time Source Procedure Growth Status 03/03/20 17:25 Nasopharynx Coronavirus COVID-19 PCR ([facility]) - Final Complete Current Medications Medications (Trade) Dose Ordered Sig/Leno Route PRN Reason Start Time Stop Time Status Last Admin Dose Admin Albuterol/ Ipratropium (Albuterol/ Ipratropium) 3 ml Q4H PRN HHN dyspnea 03/03/20 17:45 03/08/20 17:44 Dextrose (Dextrose 50%) 25 ml Q30M PRN IV Hypoglycemia 03/03/20 17:45 06/01/20 17:44 Dextrose (Dextrose 50%) 50 ml Q30M PRN IV Hypoglycemia 03/03/20 17:45 06/01/20 17:44 Heparin Sodium (Porcine) (Heparin 5000 units/ml) 5,000 units EVERY 12 HOURS SUBQ 03/03/20 21:00 04/17/20 20:59 03/05/20 20:27 Levofloxacin (Levaquin) 500 mg EVERY OTHER DAY ORAL 03/04/20 14:30 03/11/20 14:29 03/04/20 14:30 Lorazepam (Ativan 2mg/ml 1ml) 0.5 mg Q4H PRN IV For Anxiety 03/03/20 17:45 03/10/20 17:44 03/04/20 20:31 Nitroglycerin (Ntg) 0.4 mg Q5M X 3 DOSES PRN SL Prn Chest Pain 03/03/20 17:45 04/02/20 17:44 Ondansetron HCl (Zofran) 4 mg Q6H PRN IVP Nausea & Vomiting 03/03/20 17:45 04/02/20 17:44 Prednisone (predniSONE) 30 mg DAILY ORAL 03/06/20 09:00 04/05/20 08:59 Promethazine HCl/ Codeine (Phenergan with Codeine) 5 ml Q6H PRN ORAL cough 03/03/20 17:45 04/02/20 17:44 Temazepam (Restoril) 15 mg HSPRN PRN ORAL Insomnia 03/03/20 17:45 03/10/20 17:44 03/05/20 22:20 Theophylline (Fausto-Dur) 100 mg EVERY 12 HOURS ORAL 03/03/20 21:00 06/01/20 20:59 03/05/20 20:26 Assessment/Plan Assessment/Plan ASSESSMENT COPD exacerbation Purulent bronchitis Suspected COVID-19 infection-ruled out Pacemaker CHF LUIS vs CRI PLAN OF CARE tele SARS-CoV-2 by PCR NGT dc isolation : CXR 03/06 no acute findings, COVID negative, no fevers, clinically improved, sx were most likely due to COPD exacerbation O2 -titrate to keep sat above 92% pulm toilet on oral prednisone , tapering empiric abx SCX if able trial of theophylline antitussive prn DVT prophylaxis monitor renal parameters , lytes , avoid nephrotoxic supportive care dc plan if pulse ox stable on RA probably will need few more days of oral prednisone case discussed and evaluated by supervising physician Mana Sanchez NP March 06, 2020 08:37
[2020-03-06] MEDS: Levofloxacin 500mg tab ORAL SCH (09:04)
[2020-03-06] MEDS: Theophylline ER 100mg ORAL SCH (09:04)
[2020-03-06] MEDS: Heparin 5000 units/ml inj SUBQ SCH (09:05)
[2020-03-06 11:17] LABS: BASOPHILS % (AUTO) 1.3 % (0.0-2.0); EOSINOPHILS % (AUTO) 1.2 % (0.0-3.0); HEMATOCRIT 43.3 % (42.0-52.0); HEMOGLOBIN 13.6 G/DL (14.2-18.0); LYMPHOCYTES % (AUTO) 40.6 % (20.0-45.0); MEAN CORPUSCULAR VOLUME 66 FL (80-99); MONOCYTES % (AUTO) 7.1 % (1.0-10.0); NEUTROPHILS % (AUTO) 49.7 % (45.0-75.0); PLATELET COUNT 244 K/UL (150-450); RED BLOOD COUNT 6.54 M/UL (4.70-6.10); RED CELL DISTRIBUTION WIDTH 12.6 % (11.6-14.8); WHITE BLOOD COUNT 10.3 K/UL (4.8-10.8)
[2020-03-06 11:37] LABS: ALANINE AMINOTRANSFERASE 47 U/L (12-78); ALBUMIN 3.5 G/DL (3.4-5.0); ALBUMIN/GLOBULIN RATIO 1.1 (1.0-2.7); ALKALINE PHOSPHATASE 70 U/L (46-116); ANION GAP 8 mmol/L (5-15); ASPARTATE AMINO TRANSFERASE 26 U/L (15-37); BILIRUBIN,TOTAL 0.1 MG/DL (0.2-1.0); BLOOD UREA NITROGEN 17 mg/dL (7-18); CALCIUM 8.9 MG/DL (8.5-10.1); CARBON DIOXIDE 31 MMOL/L (21-32); CHLORIDE 105 MMOL/L (98-107); CHOLESTEROL 162 MG/DL (< 200); CREATININE 1.3 MG/DL (0.55-1.30); HDL CHOLESTEROL 49 MG/DL (40-60); PHOSPHORUS 3.9 MG/DL (2.5-4.9); POTASSIUM 4.1 MMOL/L (3.5-5.1); SODIUM 144 MMOL/L (136-145); TRIGLYCERIDES 303 MG/DL (30-150)
[2020-03-06] MEDS ORDERED: LEVAQUIN500 MG ORAL (12:46)
[2020-03-06] MEDS ORDERED: PREDNISONE20 MG ORAL (12:46)
--- NOTE | 2020-03-06 12:48 | Internal Med Progress Note ---
Subjective Physician Name Manuel Hurtado Attending Physician Manuel Hurtado MD Current Medications Medications (Trade) Dose Ordered Sig/Leno Route PRN Reason Start Time Stop Time Status Last Admin Dose Admin Albuterol/ Ipratropium (Albuterol/ Ipratropium) 3 ml Q4H PRN HHN dyspnea 03/03/20 17:45 03/08/20 17:44 Dextrose (Dextrose 50%) 25 ml Q30M PRN IV Hypoglycemia 03/03/20 17:45 06/01/20 17:44 Dextrose (Dextrose 50%) 50 ml Q30M PRN IV Hypoglycemia 03/03/20 17:45 06/01/20 17:44 Heparin Sodium (Porcine) (Heparin 5000 units/ml) 5,000 units EVERY 12 HOURS SUBQ 03/03/20 21:00 04/17/20 20:59 03/06/20 09:05 Levofloxacin (Levaquin) 500 mg EVERY OTHER DAY ORAL 03/04/20 14:30 03/11/20 14:29 03/06/20 09:04 Lorazepam (Ativan 2mg/ml 1ml) 0.5 mg Q4H PRN IV For Anxiety 03/03/20 17:45 03/10/20 17:44 03/04/20 20:31 Nitroglycerin (Ntg) 0.4 mg Q5M X 3 DOSES PRN SL Prn Chest Pain 03/03/20 17:45 04/02/20 17:44 Ondansetron HCl (Zofran) 4 mg Q6H PRN IVP Nausea & Vomiting 03/03/20 17:45 04/02/20 17:44 Prednisone (predniSONE) 20 mg DAILY ORAL 03/06/20 09:00 04/05/20 08:59 03/06/20 09:04 Promethazine HCl/ Codeine (Phenergan with Codeine) 5 ml Q6H PRN ORAL cough 03/03/20 17:45 04/02/20 17:44 Temazepam (Restoril) 15 mg HSPRN PRN ORAL Insomnia 03/03/20 17:45 03/10/20 17:44 03/05/20 22:20 Theophylline (Fausto-Dur) 100 mg EVERY 12 HOURS ORAL 03/03/20 21:00 06/01/20 20:59 03/06/20 09:04 Allergies: Coded Allergies: METHYLPREDNISOLONE (Verified Allergy, Intermediate, HIVES/ITCHING, ) ASPIRIN (Verified Allergy, Unknown, 02/26/17) CORTISONE (Verified Allergy, Unknown, 02/26/17) PEPPER (GENUS CAPSICUM) (Verified Allergy, Unknown, Shortness of Breath, ) Subjective awake, alert, responsive, feeling "good", less SOB, NO N/V, No CP Objective Last Vital Signs Date Time Temp Pulse Resp B/P (MAP) Pulse Ox O2 Delivery O2 Flow Rate FiO2 03/06/20 08:56 67 03/06/20 08:40 Nasal Cannula 2.0 03/06/20 08:00 97.6 22 143/78 (99) 98 03/05/20 20:40 32 Laboratory Tests Test 03/06/20 10:45 White Blood Count 10.3 K/UL (4.8-10.8) Red Blood Count 6.54 M/UL (4.70-6.10) H Hemoglobin 13.6 G/DL (14.2-18.0) L Hematocrit 43.3 % (42.0-52.0) Mean Corpuscular Volume 66 FL (80-99) L Mean Corpuscular Hemoglobin 20.7 PG (27.0-31.0) L Mean Corpuscular Hemoglobin Concent 31.3 G/DL (32.0-36.0) L Red Cell Distribution Width 12.6 % (11.6-14.8) Platelet Count 244 K/UL (150-450) Mean Platelet Volume 8.5 FL (6.5-10.1) Neutrophils (%) (Auto) 49.7 % (45.0-75.0) Lymphocytes (%) (Auto) 40.6 % (20.0-45.0) Monocytes (%) (Auto) 7.1 % (1.0-10.0) Eosinophils (%) (Auto) 1.2 % (0.0-3.0) Basophils (%) (Auto) 1.3 % (0.0-2.0) Sodium Level 144 MMOL/L (136-145) Potassium Level 4.1 MMOL/L (3.5-5.1) Chloride Level 105 MMOL/L (98-107) Carbon Dioxide Level 31 MMOL/L (21-32) Anion Gap 8 mmol/L (5-15) Blood Urea Nitrogen 17 mg/dL (7-18) Creatinine 1.3 MG/DL (0.55-1.30) Estimat Glomerular Filtration Rate 57.1 mL/min (>60) Glucose Level 107 MG/DL (74-106) H Calcium Level 8.9 MG/DL (8.5-10.1) Phosphorus Level 3.9 MG/DL (2.5-4.9) Magnesium Level 2.4 MG/DL (1.8-2.4) Total Bilirubin 0.1 MG/DL (0.2-1.0) L Aspartate Amino Transf (AST/SGOT) 26 U/L (15-37) Alanine Aminotransferase (ALT/SGPT) 47 U/L (12-78) Alkaline Phosphatase 70 U/L (46-116) Total Protein 6.7 G/DL (6.4-8.2) Albumin 3.5 G/DL (3.4-5.0) Globulin 3.2 g/dL Albumin/Globulin Ratio 1.1 (1.0-2.7) Triglycerides Level 303 MG/DL (30-150) H Cholesterol Level 162 MG/DL (< 200) LDL Cholesterol 83 mg/dL (<100) HDL Cholesterol 49 MG/DL (40-60) Cholesterol/HDL Ratio 3.3 (3.3-4.4) Microbiology Date/Time Source Procedure Growth Status 03/03/20 17:25 Nasopharynx Coronavirus COVID-19 PCR ([facility]) - Final Complete Intake and Output 03/05/20 03/06/20 19:00 07:00 Intake Total 480 ml 960 ml Balance 480 ml 960 ml Intake Oral 480 ml 960 ml # Voids 2 4 # Bowel Movements 1 Objective GENERAL: Patient awake, responsive, no acute distress. HEAD AND NECK: Pupils are equal and reactive to light. Extraocular movements intact. Neck was supple. No JVD. LUNGS: Decrease air entry at bases. No wheezes. Decreased air in bases. No rhonchi. HEART: S1, S2. Regular rhythm. Distant heart sounds. ABDOMEN: Soft, nondistended, nontender. Positive bowel sounds. EXTREMITIES: No cyanosis, clubbing, or edema NEUROLOGIC: Cranial nerves II through XII grossly normal. Motor is 5/5 in all extremities. Gait was not assessed due to patient's status. Assessment/Plan Assessment/Plan ASSESSMENT: 1. Shortness of breath, most likely secondary to the acute COPD exacerbation. However, cannot rule out COVID-19 infection. 2. Purulent bronchitis. 3. Sick sinus syndrome with pacemaker. 4. Heart failure. PLAN: In COVID-19 isolation room. Follow up with the laboratory and cultures. COVID-19 test negative. On Prednisone 20mg po Daily. Broad-spectrum spectrum antibiotics with Levaquin. We will Hold off on nebulizer treatment only MDI. Dr. Sanchez, Pulmonary Critical Care consultation as well as Dr. Phillips from Infectious Disease. Code status: Full code. DVT prophylaxis: Heparin subcutaneous. DC home today. Manuel Hurtado MD March 06, 2020 12:48
--- NOTE | 2020-03-07 17:15 | Discharge Summary ---
Discharge Summary Discharge Summary _ DATE OF ADMISSION: 03/03/2020 DATE OF DISCHARGE: 03/06/[address] Hurtado REASON FOR ADMISSION: 54 years old male with past medical history significant for COPD/asthma, congestive heart failure, status post pacemaker, presented to emergency department complaining of shortness of breath and cough. Patient was using inhaler but was getting progressively worse over the last 2 weeks. Patient also reported persistent shortness of breath. Cough reported as productive with copious amount of phlegm. Patient complained of fatigue, decreased appetite, decreased oral intake , nausea and some vomiting. Shortly after initial evaluation, patient was admitted to the hospital with acute COPD exacerbation, bronchitis and possible COVID-19 infection. Laboratory work-up revealed no leukocytosis, no lymphopenia, stable hemoglobin and hematocrit. BUN 12, creatinine 1.5. Troponin was negative, pro BNP 68. Chest x-ray demonstrated no acute cardiopulmonary disease. CONSULTANTS: elementary assistant principal Dr. Land neurologist pulmonary Dr. Sanchez ID specialist Dr. Street HOSPITAL COURSE: Patient admitted to telemetry floor in isolation room. Supplemental oxygen provided and titrated to keep pulse oximetry above 92%. Pulmonary toilet provided. Patient started on oral prednisone with tapering. Patient started on empiric antibiotic and trial of theophylline. Antitussive provided as needed. DVT prophylaxis provided. Follow-up chest x-ray revealed no acute cardiopulmonary pathology. SARS-CoV 2 by PCR from 03/03 came back negative. Patient clinically improved; no fevers . Symptoms were most likely due to COPD exacerbation. Renal parameters and electrolytes were closely monitored. Nephrotoxic's were avoided. Supportive care provided. Creatinine from initial 1.5 down to 1.3. Metalworking Specialist seen and evaluated patient. Patient did not have any anginal symptoms and not appeared to be in congestive heart failure. Metalworking Specialist recommended pacemaker interrogation which could be as outpatient . Echocardiogram revealed preserved ejection fraction of 60%. No evidence of wall motion abnormality. Lipid panel revealed elevated triglycerides. Patient was counseled on low-fat low-cholesterol diet. Patient was advised to take a fish oil capsule and follow-up with lipid panel in 3months. Patient was also counseled on therapeutic lifestyle changes. Patient clinically stabilized and was ready for discharge home. Increase atorvastatin to FINAL DIAGNOSES: COPD exacerbation Purulent bronchitis Suspected COVID-19 infection- ruled out Pacemaker secondary to sick sinus syndrome CHF- no evidence of exacerbation LUIS - resolved DISCHARGE MEDICATIONS: See Medication Reconciliation list. DISCHARGE INSTRUCTIONS: Patient was discharged home. Follow up with primary care provider in 1-2 weeks over the phone due to pandemic. Mana Sanchez NP March 07, 2020 17:15
== END 2020-03-06 14:10 | disposition home or self-care (01) | DRG 191 ==
LOC: EMR 13:14 → 2E 15:50 → EDBEDREQ 16:43 → CMPBEDREQ 16:44
DX: J44.1 Chronic obstructive pulmonary disease with (acute) exacerbation (principal); N17.9 Acute kidney failure, unspecified; I13.0 Hypertensive heart and chronic kidney disease with heart failure and stage 1 through stage 4 chronic kidney disease, or unspecified chronic kidney disease; I50.9 Heart failure, unspecified; Z95.0 Presence of cardiac pacemaker; J41.1 Mucopurulent chronic bronchitis; Z88.6 Allergy status to analgesic agent; Z88.8 Allergy status to other drugs, medicaments and biological substances
CPT/HCPCS: 36415; 36600; 71045; 80053; 80061; 82803; 83735; 83880; 84100; 84484; 85025; 87635; 93005; 93306; 94664; 96374; 99285